=== PATIENT | male | born 1985 | race American Indian/Alaskan Native ===

== ENCOUNTER 2018-08-20 17:07 | Emergency (ER) | payer MEDICAID, OTHER ==
[2018-08-20] MEDS ORDERED: Acetaminophen/HYDROcodone 325-10 MG Tab PO ONE (17:17)
[2018-08-20 17:20] VITALS: BP 131/97
--- NOTE | 2018-08-20 17:58 | EDM.PDOC ---
Scribed by Adriana Barakat 08/20/18 1862 for Gemma Barry MD ED HPI GENERAL MEDICAL PROBLEM - General Chief Complaint: Lower Extremity Injury/Pain Stated Complaint: LEFT LEG,BUCKED OFF HORSE Time Seen by Provider: 08/20/18 17:14 Source of Information: Reports: Patient, RN, RN Notes Reviewed History Limitations: Reports: No Limitations - History of Present Illness INITIAL COMMENTS - FREE TEXT/NARRATIVE: Patient presents to ER with complaint that a horse bucked off and he injured his left knee. Denies any other injury. Rates his pain 8/10, better immobilized and worse with movement. Onset: Today Duration: Getting Worse Location: Reports: Lower Extremity, Left Quality: Reports: Ache Severity: Severe Improves with: Reports: None Worsens with: Reports: None Associated Symptoms: Reports: No Other Symptoms Left Leg Pain Score (Numeric/FACES): 8 - Related Data Allergies Allergy/AdvReac Type Severity Reaction Status Date / Time No Known Allergies Allergy Verified 08/20/18 17:13 Home Meds: Home Meds . [No Known Home Meds] 04/11/14 [History] Past Medical History - Past Health History Medical/Surgical History: Denies Medical/Surgical History Review of Systems - Review of Systems Review Of Systems: ROS reveals no pertinent complaints other than HPI. ED EXAM, GENERAL - Physical Exam Exam: See Below Exam Limited By: No Limitations General Appearance: Alert, WD/WN, No Apparent Distress Nose: Normal Inspection Throat/Mouth: Normal Inspection, Normal Voice Head: Atraumatic, Normocephalic Neck: Normal Inspection, Supple, Non-Tender, Full Range of Motion Respiratory/Chest: No Respiratory Distress Cardiovascular: Normal Peripheral Pulses Back Exam: Normal Inspection, Full Range of Motion, NT Extremities: Limited Range of Motion (Left knee with mild anterior bruising, no visible swelling, effusion, or deformity, the skin is intact.). No: Joint Swelling, Fabiana's Sign, Increased Warmth, Redness Neurological: Alert, Oriented, No Motor/Sensory Deficits Course - Vital Signs Last Recorded V/S: Last Vital Signs Temp 36.8 C 08/20/18 17:14 Pulse 106 H 08/20/18 17:14 Resp 16 08/20/18 17:14 BP 131/97 H 08/20/18 17:14 Pulse Ox 98 08/20/18 17:14 - Orders/Labs/Meds Orders: Active Orders 24 hr Category Date Time Status Darryl Bandage [RC] ONETIME Care 08/20/18 17:53 Ordered Knee 3V Lt [CR] Urgent Exams 08/20/18 17:18 Taken DME for Discharge [COMM] Routine Oth 08/20/18 17:52 Ordered Ice Bag [Ice Therapy] [OM.PC] Routine Oth 08/20/18 17:19 Ordered Meds: Medications Discontinued Medications Generic Name Dose Route Start Last Admin Trade Name Anthony PRN Reason Stop Dose Admin Hydrocodone Bitart/Acetaminophen 1 tab 08/20/18 17:17 08/20/18 17:49 [place] 325-10 Mg PO 08/20/18 17:18 1 tab ONETIME ONE Administration - Radiology Interpretation Free Text/Narrative:: [facility] Final Radiology Report Call: [phone] assistance Online chat: [email or web address] Name: VICKI VO Age: 32Years M Date: 08/20/2018 SSN: -- : [id number] Study: XR KNEE 3 VIEWS LEFT Requesting Physician: GEMMA BARRY Images: 3 Addl Studies: Provided Clinical History: Contrast: Contrast Medium: Contrast Amount: Contrast Method: CONFIDENTIALITY STATEMENT This report is intended only for use by the referring physician, and only in accordance with law. If you received this in error, call [phone]. Page 1 of 1 EXAM: XR Left Knee, 3 Views EXAM DATE/TIME: 08/20/2018 5:18 PM CLINICAL HISTORY: 32 years old, male; Pain; Knee; Left; Patient HX: Bucked off horse TECHNIQUE: Imaging protocol: XR Left knee. Views: 3 views. COMPARISON: MR Knee wo Cont Lt 04/27/2015 10:43 AM FINDINGS: Bones/joints: Normal. Soft tissues: Normal. IMPRESSION: No acute findings. Thank you for allowing us to participate in the care of your patient. Dictated and Authenticated by: Alonzo Sánchez MD 08/20/2018 5:41 PM Central Time ([place] & [place]) Departure - Departure Time of Disposition: 17:56 Disposition: Home, Self-Care 01 Condition: Good Clinical Impression: Contusion of left knee, initial encounter Left knee sprain Qualifiers: Encounter type: initial encounter Involved ligament of knee: unspecified ligament Qualified Code(s): S83.92XA - Sprain of unspecified site of left knee, initial encounter - Discharge Information *PRESCRIPTION DRUG MONITORING PROGRAM REVIEWED*: No *COPY OF PRESCRIPTION DRUG MONITORING REPORT IN PATIENT MIRLANDE: No Instructions: Knee Sprain, Adult, Contusion, [id number] Forms: ED Department Discharge Additional Instructions: Rest, ice packs, and elevate left knee to reduce pain and swelling. Use crutches as needed for 5 to 7 days. Rx: Naprosyn 500mg Follow up in clinic in 7 days if not improving as tolerated. - My Orders Last 24 Hours: My Active Orders 08/20/18 17:18 Knee 3V Lt [CR] Urgent 08/20/18 17:19 Ice Bag [Ice Therapy] [OM.PC] Routine 08/20/18 17:52 DME for Discharge [COMM] Routine 08/20/18 17:53 Darryl Bandage [RC] ONETIME - Assessment/Plan Last 24 Hours: My Active Orders 08/20/18 17:18 Knee 3V Lt [CR] Urgent 08/20/18 17:19 Ice Bag [Ice Therapy] [OM.PC] Routine 08/20/18 17:52 DME for Discharge [COMM] Routine 08/20/18 17:53 Darryl Bandage [RC] ONETIME I have read and agree with the documentation that has been completed regarding this visit. By signing this record, I attest that the documentation was completed in my physical presence and is an accurate record of the encounter.
== END 2018-08-20 18:01 | disposition home or self-care (01) ==
LOC: DL.ED 17:07
DX: S83.92XA Sprain of unspecified site of left knee, initial encounter (principal); V80.010A Animal-rider injured by fall from or being thrown from horse in noncollision accident, initial encounter
CPT/HCPCS: 73562-LT; 99283-25; A9270-GY

== ENCOUNTER 2019-12-24 00:26 | Emergency (ER) | payer MEDICAID, OTHER ==
[2019-12-24 00:41] VITALS: BP 134/95; PULSE 93
--- NOTE | 2019-12-24 00:41 | EDM.PDOC ---
ED HPI GENERAL MEDICAL PROBLEM - General Chief Complaint: Drug or Alcohol Abuse Stated Complaint: PT SAYSBOTTOM OF SYRINGE STUCK IN ARM, DRUG ATTICT Time Seen by Provider: 12/24/19 00:40 Source of Information: Reports: Patient, RN, RN Notes Reviewed History Limitations: Reports: Intoxication - History of Present Illness INITIAL COMMENTS - FREE TEXT/NARRATIVE: Patient presents to ER with complaint of broken needle in the left antecubital. Patient states he was shooting up meth this evening when the needle broke. Patient is unsure what time this happened. Patient admits to being a frequent IV drug user. Patient denies any pain at this time. Is trying to hold pressure to the upper arm, states he is very concerned that the needle will move up the arm if he does not tourniquet the arm. Patient encouraged to untie his sweatshirt from his upper arm, loosen tourniquet, and stop holding pressure. Patient is very anxious. Onset: Today, Sudden - Related Data Allergies Allergy/AdvReac Type Severity Reaction Status Date / Time No Known Allergies Allergy Verified 12/24/19 00:47 Home Meds: Home Meds . [No Known Home Meds] 04/11/14 [History] Past Medical History - Past Health History Medical/Surgical History: Denies Medical/Surgical History HEENT History: Reports: None Cardiovascular History: Reports: None Respiratory History: Reports: None Gastrointestinal History: Reports: None Genitourinary History: Reports: None Musculoskeletal History: Reports: None Neurological History: Reports: None Psychiatric History: Reports: None Endocrine/Metabolic History: Reports: None Hematologic History: Reports: None Immunologic History: Reports: None Oncologic (Cancer) History: Reports: None Dermatologic History: Reports: None - Infectious Disease History Infectious Disease History: Reports: None - Past Surgical History Head Surgeries/Procedures: Reports: None Social & Family History - Family History Family Medical History: Noncontributory - Caffeine Use Caffeine Use: Reports: Coffee ED ROS GENERAL - Review of Systems Review Of Systems: Comprehensive ROS is negative, except as noted in HPI. ED EXAM, SKIN/RASH Exam: See Below Exam Limited By: Intoxication General Appearance: Alert, WD/WN, Anxious Eye Exam: Bilateral Eye: EOMI, Normal Inspection Ears: Normal External Exam, Hearing Grossly Normal Nose: Normal Inspection Throat/Mouth: Normal Inspection, Normal Voice, No Airway Compromise Head: Atraumatic, Normocephalic Neck: Normal Inspection, Supple, Non-Tender, Full Range of Motion Respiratory/Chest: No Respiratory Distress, Lungs Clear, Normal Breath Sounds, No Accessory Muscle Use, Chest Non-Tender Cardiovascular: Normal Peripheral Pulses, Regular Rate, Rhythm, No Edema, No Gallop, No JVD, No Murmur, No Rub Peripheral Pulses: 1+: Brachial (L), Brachial (R), 2+: Radial (L), Radial (R) GI/Abdominal: Normal Bowel Sounds, Soft, Non-Tender (Male) Exam: Deferred Rectal (Males) Exam: Deferred Back Exam: Normal Inspection, Full Range of Motion, NT Extremities: Other (track summers to the LAC, mild petechiae to the left upper arm from patient holding pressure and pt placing a tourniquet around upper arm) Neurological: Alert, CN II-XII Intact, Normal Cognition, Normal Gait, Normal Reflexes, No Motor/Sensory Deficits, Memory Loss Recent Events Psychiatric: Anxious Skin: Warm, Dry, Petechiae (Left upper arm), Wound/Incision (track summers to LAC) Location, Skin: Upper Extremity, Left Lymphatic: No Adenopathy Course - Vital Signs Last Recorded V/S: Last Vital Signs Temp 98.8 F 12/24/19 00:40 Pulse 93 12/24/19 00:40 Resp 16 12/24/19 00:40 BP 134/95 H 12/24/19 00:40 Pulse Ox 100 12/24/19 00:40 - Orders/Labs/Meds Labs: Laboratory Tests 12/24/19 12/24/19 Range/Units 01:03 01:03 WBC 8.1 (5.0-10.0) 10^3/uL RBC 5.53 (4.6-6.2) 10^6/uL Hgb 16.8 D (14.0-18.0) g/dL Hct 48.7 (40.0-54.0) % MCV 88.1 (80-100) fL MCH 30.4 (27.0-34.0) pg MCHC 34.5 (33.0-35.0) g/dL Plt Count 212 (150-450) 10^3/uL Neut % (Auto) 83.0 H (42.2-75.2) % Lymph % (Auto) 11.1 L (20.5-50.1) % [place] % (Auto) 5.7 (2-8) % Eos % (Auto) 0.1 L (1.0-3.0) % Baso % (Auto) 0.1 (0.0-1.0) % Sodium 141 (136-145) mmol/L Potassium 3.8 (3.5-5.1) mmol/L Chloride 105 (98-107) mmol/L Carbon Dioxide 23 (21-32) mmol/L Anion Gap 16.8 H (7-13) mEq/L BUN 10 (7-18) mg/dL Creatinine 0.88 (0.70-1.30) mg/dL Est Cr Clr Drug Dosing 123.28 mL/min Estimated GFR (MDRD) > 60 BUN/Creatinine Ratio 11.4 (No establ ref range) Glucose 124 H (74-99) mg/dL Calcium 8.6 (8.5-10.1) mg/dL Total Bilirubin 0.2 (0.2-1.0) mg/dL AST 29 (15-37) U/L ALT 56 (16-63) U/L Alkaline Phosphatase 105 (46-116) U/L Total Protein 9.2 H (6.4-8.2) g/dL Albumin 4.1 (3.4-5.0) g/dL Globulin 5.1 Albumin/Globulin Ratio 0.8 Ethyl Alcohol 98 (0) mg/dL - Re-Assessments/Exams Free Text/Narrative Re-Assessment/Exam: 12/24/19 01:11 00:55 - Called [facility] for transfer, on diversion at this time. 00:58 - [facility] called for transfer, on diversion at this time. 00:59 - [facility] called for transfer. ER physician told [facility] that they would not be able to get the needle end out, and would suggest discharging and having the patient follow up with a surgical referral tomorrow. Departure - Departure Time of Disposition: 01:55 Disposition: Home, Self-Care 01 Condition: Fair Clinical Impression: Alcohol abuse, Drug abuse, Foreign body (FB) in soft tissue - Discharge Information *PRESCRIPTION DRUG MONITORING PROGRAM REVIEWED*: No *COPY OF PRESCRIPTION DRUG MONITORING REPORT IN PATIENT MIRLANDE: No Instructions: Skin Foreign Body, Substance Use Disorder Forms: ED Department Discharge Additional Instructions: Tomorrow call general surgery at [facility] at [phone] Make an appointment for removal of the needle All Xrays have been pushed to [facility] in PACs, so they are able to see them No strenuous activity with the left arm until seen by General surgery If any redness, swelling, increased pain, warmth, drainage, or fever, return to the ER immediately Sepsis Event Note (ED) - Focused Exam Vital Signs: Vital Signs Temp Pulse Resp BP Pulse Ox 12/24/19 00:40 98.8 F 93 16 134/95 H 100
--- NOTE | 2019-12-24 01:16 | CR ---
PROCEDURE INFORMATION: Exam: XR Left Forearm Exam date and time: 12/24/2019 12:36 AM Age: 34 years old Clinical indication: Pain; Lower or forearm and elbow; Left; Additional info: Part of needle stuck in arm TECHNIQUE: Imaging protocol: XR Left forearm. Views: 2 views. COMPARISON: No relevant prior studies available. FINDINGS: Bones/joints: Normal. Soft tissues: There is a small sliver like metallic foreign object seen over the lateral aspect of the antecubital fossa consistent with a needle fragment. This is approximately 11 mm in length. No soft tissue gas. IMPRESSION: 1. Metal fragment in the lateral antecubital fossa soft tissues consistent with a needle fragment. 2. No soft tissue gas. 3. Normal bones.
[2019-12-24 01:27] LABS: ANION GAP 16.8 mEq/L (7-13); CHLORIDE,CL 105 mmol/L (98-107); SODIUM,NA 141 mmol/L (136-145)
== END 2019-12-24 01:50 | disposition home or self-care (01) ==
LOC: DL.ED 00:26
DX: S50.352A Superficial foreign body of left elbow, initial encounter (principal); F15.10 Other stimulant abuse, uncomplicated; F10.10 Alcohol abuse, uncomplicated; X58.XXXA Exposure to other specified factors, initial encounter
CPT/HCPCS: 36415; 73090-LT; 80053; 80307; 85025; 99283-25

== ENCOUNTER 2021-06-14 20:01 | Emergency (ER) | payer MEDICAID, OTHER ==
[~2021-06-14 20:01] MED LIST: Sodium Chloride 0.9% 1,000 ML IV ONE
[2021-06-14] MEDS ORDERED: fentaNYL 100 MCG/2 ML SDV IVPUSH ONE (20:28)
[2021-06-14] MEDS ORDERED: Ondansetron 4 MG/2 ML SDV IVPUSH ONE (20:28)
[2021-06-14] MEDS ORDERED: Ondansetron 4 MG/2 ML SDV ONE (20:29)
[2021-06-14 20:33] LABS: PTT,PARTIAL THROMBOPLSTIN TIME 21.6 SEC (22.0-34.0)
[2021-06-14 20:41] LABS: ANION GAP 19.4 mEq/L (7-13); CHLORIDE,CL 108 mmol/L (98-107); SODIUM,NA 146 mmol/L (136-145)
[2021-06-14] MEDS ORDERED: Ondansetron 4 MG/2 ML SDV IV ONE (20:52)
[2021-06-14] MEDS ORDERED: fentaNYL 100 MCG/2 ML SDV IV ONE (20:52)
== END 2021-06-14 21:40 | disposition home or self-care (01) ==
LOC: DL.ED 20:01
DX: S02.2XXA Fracture of nasal bones, initial encounter for closed fracture (principal); S40.022A Contusion of left upper arm, initial encounter; Y04.0XXA Assault by unarmed brawl or fight, initial encounter
CPT/HCPCS: 36415; 70450; 70486; 72125; 80053; 80307; 85025; 85610; 85730; 99284; 99284-25; J2405; J3010; J7030

== ENCOUNTER 2021-07-03 16:51 | Emergency (ER) | payer MEDICAID ==
[2021-07-03 18:42] VITALS: BP 157/92; PULSE 100
== END 2021-07-03 18:49 | disposition left against medical advice (07) ==
LOC: DL.ED 16:51
DX: M79.605 Pain in left leg (principal); Z53.21 Procedure and treatment not carried out due to patient leaving prior to being seen by health care provider

== ENCOUNTER 2022-03-27 13:29 | Emergency (ER) | payer MEDICAID | END 2022-03-27 14:15 | disposition left against medical advice (07) | LOC: DL.ED 13:29 | DX: Z53.21 Procedure and treatment not carried out due to patient leaving prior to being seen by health care provider (principal) ==

== ENCOUNTER 2022-03-28 14:32 | Emergency (ER) | payer MEDICAID ==
[2022-03-28 15:48] LABS: ANION GAP 16.3 mEq/L (7-13); CHLORIDE,CL 101 mmol/L (98-107); ESTIMATED GFR 99 mL/min (>=60); SODIUM,NA 140 mmol/L (136-145)
[2022-03-28 15:49] LABS: ACETAMINOPHEN 0 ug/mL (10-30 (Therapeutic))
[2022-03-28 15:50] VITALS: BP 145/102; PULSE 142
[2022-03-28 15:52] LABS: METHAMPHETAMINES,URINE POSITIVE (NEGATIVE)
[2022-03-28 15:53] LABS: BARBITURATES,URINE NEGATIVE (NEGATIVE); BENZODIAZEPINE,URINE NEGATIVE (NEGATIVE); MDMA (ECSTASY), URINE NEGATIVE (NEGATIVE); OPIATES,URINE NEGATIVE (NEGATIVE); OXYCODONE,URINE NEGATIVE (NEGATIVE); PHENCYCLIDINE,URINE NEGATIVE (NEGATIVE); TCA,URINE NEGATIVE (NEGATIVE)
[2022-03-28 16:04] LABS: CORONAVIRUS COVID-19 NAA NEGATIVE (NEGATIVE)
[2022-03-28] MEDS ORDERED: MVI, Adult with Vitamin K 10 ML, Folic Acid 1 MG, Thiamine 100 MG in Lactated Ringers 1... IV ONE ×4 (16:07)
[2022-03-29 08:55] LABS: METHADONE,URINE NEGATIVE (NEGATIVE)
[2022-03-29 08:56] LABS: AMPHETAMINES,URINE POSITIVE (NEGATIVE)
== END 2022-03-28 18:23 | disposition home or self-care (01) ==
LOC: DL.ED 14:32
DX: R07.89 Other chest pain (principal); F10.10 Alcohol abuse, uncomplicated; F19.90 Other psychoactive substance use, unspecified, uncomplicated; Z20.822 Contact with and (suspected) exposure to COVID-19
CPT/HCPCS: 0240U; 36415; 80053; 80143; 80179; 80305; 80307; 81003; 82140; 82150; 83605; 83735; 84484; 85025; 93005; 96365; 99285; J3411; J7120; J3490

== ENCOUNTER 2022-03-28 22:30 | Emergency (ER) | payer MEDICAID ==
[~2022-03-28 22:30] MED LIST changes: -Sodium Chloride 0.9% 1,000 ML IV ONE; +Sodium Chloride 0.9% 10 ML Syringe FLUSH PRN
[2022-03-28] MEDS ORDERED: Metoprolol Tartrate 5 MG/5 ML SDV IVPUSH ONE (23:05)
[2022-03-28 23:29] VITALS: BP 160/99; PULSE 118
== END 2022-03-28 23:41 | disposition home or self-care (01) ==
LOC: DL.ED 22:30
DX: F19.10 Other psychoactive substance abuse, uncomplicated (principal)
CPT/HCPCS: 36415; 71046; 83605; 84484; 86140; 93005; 96374; 99285; J3490

== ENCOUNTER 2022-05-11 09:55 | Emergency (ER) | payer MEDICAID ==
[2022-05-11 10:16] VITALS: BP 176/114; PULSE 74
[2022-05-11 10:41] LABS: ANION GAP 12.8 mEq/L (7-13)
[2022-05-11 10:56] LABS: CORONAVIRUS COVID-19 NAA NEGATIVE (NEGATIVE)
== END 2022-05-11 11:00 | disposition home or self-care (01) ==
LOC: DL.ED 09:55
DX: R07.89 Other chest pain (principal); I10 Essential (primary) hypertension; Z20.822 Contact with and (suspected) exposure to COVID-19
CPT/HCPCS: 0240U; 36415; 71046; 80053; 80143; 81001; 83690; 83880; 84484; 85025; 93005; 93010; 99284; 99285

== ENCOUNTER 2022-07-19 08:17 | Emergency (ER) | payer MEDICAID ==
[2022-07-19] MEDS ORDERED: MVI, Adult with Vitamin K 10 ML, Thiamine 100 MG, Folic Acid 1 MG in Lactated Ringers 1... IV ONE ×4 (08:36)
[2022-07-19 08:44] LABS: AMPHETAMINES,URINE NEGATIVE (NEGATIVE); BARBITURATES,URINE NEGATIVE (NEGATIVE); BENZODIAZEPINE,URINE NEGATIVE (NEGATIVE); MDMA (ECSTASY), URINE NEGATIVE (NEGATIVE); METHADONE,URINE NEGATIVE (NEGATIVE); OPIATES,URINE NEGATIVE (NEGATIVE); OXYCODONE,URINE NEGATIVE (NEGATIVE); PHENCYCLIDINE,URINE NEGATIVE (NEGATIVE); TCA,URINE NEGATIVE (NEGATIVE)
[2022-07-19 08:46] LABS: METHAMPHETAMINES,URINE NEGATIVE (NEGATIVE)
[2022-07-19 08:47] VITALS: BP 145/96; PULSE 106
[2022-07-19 08:55] LABS: ANION GAP 15.5 mEq/L (7-13)
== END 2022-07-19 09:56 | disposition home or self-care (01) ==
LOC: DL.ED 08:17
DX: R07.89 Other chest pain (principal); F41.9 Anxiety disorder, unspecified; F10.982 Alcohol use, unspecified with alcohol-induced sleep disorder; I10 Essential (primary) hypertension; F17.210 Nicotine dependence, cigarettes, uncomplicated; Z79.899 Other long term (current) drug therapy; Z86.16 Personal history of COVID-19; Y90.7 Blood alcohol level of 200-239 mg/100 ml
CPT/HCPCS: 36415; 71045; 80053; 80305-QW; 80307; 81003; 82150; 83690; 84484; 85025; 93005; 93010; 96365; 99284; 99285-25; J3411; J3490; J7120

== ENCOUNTER 2022-07-21 18:10 | Emergency (ER) | payer MEDICAID | END 2022-07-21 18:40 | disposition left against medical advice (07) | LOC: DL.ED 18:10 | DX: Z53.21 Procedure and treatment not carried out due to patient leaving prior to being seen by health care provider (principal) ==

== ENCOUNTER 2022-07-21 18:45 | Emergency (ER) | payer MEDICAID | END 2022-07-21 19:17 | disposition left against medical advice (07) | LOC: DL.ED 18:45 | DX: Z53.21 Procedure and treatment not carried out due to patient leaving prior to being seen by health care provider (principal) ==

== ENCOUNTER 2022-07-21 23:40 | Emergency (ER) | payer MEDICAID ==
[2022-07-21 23:41] VITALS: BP 151/91; PULSE 114
[2022-07-21 23:55] LABS: AMPHETAMINES,URINE NEGATIVE (NEGATIVE); BARBITURATES,URINE NEGATIVE (NEGATIVE); BENZODIAZEPINE,URINE NEGATIVE (NEGATIVE); MDMA (ECSTASY), URINE NEGATIVE (NEGATIVE); METHADONE,URINE NEGATIVE (NEGATIVE); METHAMPHETAMINES,URINE NEGATIVE (NEGATIVE); OPIATES,URINE NEGATIVE (NEGATIVE); OXYCODONE,URINE NEGATIVE (NEGATIVE); PHENCYCLIDINE,URINE NEGATIVE (NEGATIVE); TCA,URINE NEGATIVE (NEGATIVE)
[2022-07-22 00:08] LABS: ANION GAP 15.7 mEq/L (7-13); CHLORIDE,CL 106 mmol/L (98-107); SODIUM,NA 142 mmol/L (136-145)
[2022-07-22 00:14] LABS: ESTIMATED GFR 113 mL/min (>=60)
== END 2022-07-22 01:04 | disposition home or self-care (01) ==
LOC: DL.ED 23:40
DX: R10.31 Right lower quadrant pain (principal); R10.32 Left lower quadrant pain; I10 Essential (primary) hypertension; Z79.899 Other long term (current) drug therapy; Z86.16 Personal history of COVID-19
CPT/HCPCS: 36415; 80053; 80305-QW; 80307; 81003; 82150; 83605; 83690; 85025; 86140; 99283; 99284

== ENCOUNTER 2022-08-16 00:53 | Emergency (ER) | payer MEDICAID ==
[~2022-08-16 00:53] MED LIST changes: +Sodium Chloride 0.9% 1,000 ML IV ONE
[2022-08-16 01:02] VITALS: BP 142/94; PULSE 129
[2022-08-16 01:21] LABS: PTT,PARTIAL THROMBOPLSTIN TIME 24.9 SEC (22.0-34.0)
[2022-08-16 01:25] LABS: ANION GAP 15.3 mEq/L (7-13); CHLORIDE,CL 105 mmol/L (98-107); SODIUM,NA 143 mmol/L (136-145)
[2022-08-16 01:27] LABS: ESTIMATED GFR 116 mL/min (>=60)
[2022-08-16 01:30] LABS: AMPHETAMINES,URINE POSITIVE (NEGATIVE); BARBITURATES,URINE NEGATIVE (NEGATIVE); BENZODIAZEPINE,URINE NEGATIVE (NEGATIVE); MDMA (ECSTASY), URINE NEGATIVE (NEGATIVE); METHADONE,URINE NEGATIVE (NEGATIVE); METHAMPHETAMINES,URINE POSITIVE (NEGATIVE); OPIATES,URINE NEGATIVE (NEGATIVE); OXYCODONE,URINE NEGATIVE (NEGATIVE); PHENCYCLIDINE,URINE NEGATIVE (NEGATIVE); TCA,URINE NEGATIVE (NEGATIVE)
[2022-08-16] MEDS ORDERED: Potassium Chloride 20 MEQ in Premix Bag 1 BAG IV ONE (01:34)
[2022-08-16] MEDS ORDERED: Sodium Chloride 0.9% 1,000 ML IV ONE (03:23)
[2022-08-16] MEDS ORDERED: hydrOXYzine HCl 25 MG Tab PO ONE (05:02)
== END 2022-08-16 06:25 | disposition home or self-care (01) ==
LOC: DL.ED 00:53
DX: R07.89 Other chest pain (principal); R06.02 Shortness of breath; F10.129 Alcohol abuse with intoxication, unspecified; F15.10 Other stimulant abuse, uncomplicated; Y90.7 Blood alcohol level of 200-239 mg/100 ml; F41.9 Anxiety disorder, unspecified; I10 Essential (primary) hypertension; Z79.899 Other long term (current) drug therapy
CPT/HCPCS: 36415; 71045; 80053; 80305; 80307; 81003; 82150; 83605; 83690; 83735; 84145; 84484; 85025; 85610; 85730; 86140; 93005; 93010; 96361; 96365; 96366; 99284; 99285; A9270; J3480; J7030; J3490

== ENCOUNTER 2022-08-29 05:44 | Emergency (ER) | payer MEDICAID ==
[2022-08-29] MEDS ORDERED: Sodium Chloride 0.9% 10 ML Syringe FLUSH PRN (05:48)
[2022-08-29 05:59] VITALS: BP 156/116; PULSE 129
[2022-08-29 06:09] LABS: BASOPHILS PERCENT AUTO 0.8 % (0.0-1.0); HEMATOCRIT 41.5 % (40.0-54.0); HEMOGLOBIN 14.1 g/dL (14.0-18.0); LYMPHOCYTES PERCENT AUTO 32.2 % (20.5-50.1); MEAN CORPUSCULAR HEMOGLOBIN 31.3 pg (27.0-34.0); MEAN CORPUSCULAR VOLUME 92.2 fL (80-100); MONOCYTES PERCENT AUTO 8.6 % (2-8); NEUTROPHILS PERCENT AUTO 58.4 % (42.2-75.2); PLATELET COUNT,PLT 161 10^3/uL (150-450); WHITE BLOOD CELL COUNT,WBC 4.8 10^3/uL (5.0-10.0)
[2022-08-29 06:11] LABS: APPEARANCE,URINE CLEAR (CLEAR); BILIRUBIN,URINE NEGATIVE (NEGATIVE); COLOR,URINE YELLOW (YELLOW); GLUCOSE,URINE NEGATIVE (NEGATIVE); KETONES,URINE NEGATIVE (NEGATIVE); LEUKOCYTE ESTERASE,URINE NEGATIVE (NEGATIVE); NITRITE,URINE NEGATIVE (NEGATIVE); OCCULT BLOOD,URINE TRACE-INTACT (NEGATIVE); PROTEIN,URINE NEGATIVE (NEGATIVE); UROBILINOGEN,URINE 0.2 mg/dL (0.2-1.0)
[2022-08-29 06:19] LABS: AMPHETAMINES,URINE NEGATIVE (NEGATIVE); BARBITURATES,URINE NEGATIVE (NEGATIVE); BENZODIAZEPINE,URINE NEGATIVE (NEGATIVE); MDMA (ECSTASY), URINE NEGATIVE (NEGATIVE); METHADONE,URINE NEGATIVE (NEGATIVE); METHAMPHETAMINES,URINE POSITIVE (NEGATIVE); OPIATES,URINE NEGATIVE (NEGATIVE); OXYCODONE,URINE NEGATIVE (NEGATIVE); PHENCYCLIDINE,URINE NEGATIVE (NEGATIVE); TCA,URINE NEGATIVE (NEGATIVE)
[2022-08-29 06:22] LABS: BACTERIA,URINE RARE /HPF (0-FEW/HPF); EPITHELIAL CELLS,URINE RARE /HPF (NOT SEEN); RBC,URINE 0-5 /HPF (0-5); WBC,URINE NOT SEEN /HPF (0-5/HPF)
[2022-08-29 06:26] LABS: INR 0.9 (0.9-1.2); PROTHROMBIN TIME 9.7 SEC (9.0-12.0); PTT,PARTIAL THROMBOPLSTIN TIME 24.7 SEC (22.0-34.0)
[2022-08-29 06:35] LABS: A/G RATIO 0.9; ALANINE AMINOTRANSFERASE,ALT 165 U/L (16-63); ALKALINE PHOSPHATASE 92 U/L (46-116); ASPARTATE AMNIOTRANSFERASE,AST 125 U/L (15-37); BILIRUBIN TOTAL 0.4 mg/dL (0.2-1.0); BLOOD UREA NITROGEN,BUN 5 mg/dL (7-18); CALCIUM 8.1 mg/dL (8.5-10.1); CARBON DIOXIDE,CO2 24 mmol/L (21-32); CHLORIDE,CL 107 mmol/L (98-107); CREATININE 0.71 mg/dL (0.70-1.30); EST CRCL DRUG DOSING (CG) 149.94 mL/min; ETHANOL BLOOD MEDICAL 280 mg/dL (0); GLUCOSE RANDOM 129 mg/dL (70-99); MAGNESIUM 1.7 mg/dL (1.8-2.4); PROTEIN TOTAL,TP 8.6 g/dL (6.4-8.2); SODIUM,NA 145 mmol/L (136-145)
[2022-08-29 06:37] LABS: ESTIMATED GFR 123 mL/min (>=60)
[2022-08-29 06:38] LABS: C-REACTIVE PROTEIN < 0.2 mg/dL (0.0-0.9); LACTIC ACID 2.2 mmol/L (0.4-2.0)
[2022-08-29] MEDS ORDERED: hydrOXYzine HCl 25 MG Tab PO ONE (07:07)
[2022-08-29] MEDS ORDERED: diphenhydrAMINE 50 MG/ML SDV IVPUSH ONE (07:14)
[2022-08-29] MEDS ORDERED: Potassium Chloride 10 MEQ Tab.ER PO ONE (07:16)
[2022-08-29] MEDS ORDERED: diphenhydrAMINE 50 MG/ML SDV ONE (07:19)
[2022-08-29] MEDS ORDERED: Potassium Chloride 10 MEQ Tab.ER ONE (07:20)
== END 2022-08-29 07:38 | disposition home or self-care (01) ==
LOC: DL.ED 05:44
DX: F15.10 Other stimulant abuse, uncomplicated (principal); F10.10 Alcohol abuse, uncomplicated; I10 Essential (primary) hypertension; E11.9 Type 2 diabetes mellitus without complications; R00.0 Tachycardia, unspecified; Z86.16 Personal history of COVID-19; Z79.899 Other long term (current) drug therapy; Y90.8 Blood alcohol level of 240 mg/100 ml or more
CPT/HCPCS: 36415; 71045; 80053; 80305-QW; 80307; 81001; 83605; 83735; 84484; 85025; 85610; 85730; 86140; 93005; 93010; 96374; 99284; 99285-25; J3490

== ENCOUNTER 2022-08-29 16:50 | Emergency (ER) | payer MEDICAID ==
[2022-08-29] MEDS ORDERED: Sodium Chloride 0.9% 10 ML Syringe FLUSH PRN (17:40)
[2022-08-29 17:56] VITALS: BP 147/93; PULSE 118
[2022-08-29 18:02] LABS: BASOPHILS PERCENT AUTO 0.6 % (0.0-1.0); EOSINOPHILS PERCENT AUTO 0.1 % (1.0-3.0); HEMATOCRIT 42.2 % (40.0-54.0); HEMOGLOBIN 14.7 g/dL (14.0-18.0); LYMPHOCYTES PERCENT AUTO 8.1 % (20.5-50.1); MEAN CORPUSCULAR HEMOGLOBIN 31.3 pg (27.0-34.0); MEAN CORPUSCULAR HGB CONC 34.8 g/dL (33.0-35.0); NEUTROPHILS PERCENT AUTO 84.2 % (42.2-75.2); PLATELET COUNT,PLT 163 10^3/uL (150-450); RED BLOOD CELL COUNT 4.69 10^6/uL (4.6-6.2); WHITE BLOOD CELL COUNT,WBC 10.4 10^3/uL (5.0-10.0)
[2022-08-29 18:31] LABS: ALANINE AMINOTRANSFERASE,ALT 176 U/L (16-63); ALBUMIN 4.3 g/dL (3.4-5.0); ALKALINE PHOSPHATASE 100 U/L (46-116); ASPARTATE AMNIOTRANSFERASE,AST 136 U/L (15-37); BLOOD UREA NITROGEN,BUN 4 mg/dL (7-18); BUN/CREATININE RATIO 4.9 (No establ ref range); CALCIUM 9.3 mg/dL (8.5-10.1); CARBON DIOXIDE,CO2 26 mmol/L (21-32); CHLORIDE,CL 99 mmol/L (98-107); CREATININE 0.82 mg/dL (0.70-1.30); GLUCOSE RANDOM 124 mg/dL (70-99); PROTEIN TOTAL,TP 8.6 g/dL (6.4-8.2); SODIUM,NA 139 mmol/L (136-145)
[2022-08-29 18:36] LABS: C-REACTIVE PROTEIN < 0.2 mg/dL (0.0-0.9); ESTIMATED GFR 117 mL/min (>=60); LACTIC ACID 2.4 mmol/L (0.4-2.0)
[2022-08-29 18:38] LABS: AMYLASE 78 U/L (25-115); LIPASE 152 U/L (73-393)
[2022-08-29] MEDS ORDERED: Potassium Chloride 10 MEQ Tab.ER PO ONE (18:43)
[2022-08-29] MEDS ORDERED: Sodium Chloride 0.9% 1,000 ML IV ONE (18:43)
[2022-08-29] MEDS ORDERED: Iopamidol 755 Mg/ML 100 ML Bottle IVPUSH ONE (18:53)
[2022-08-29 20:00] LABS: APPEARANCE,URINE CLEAR (CLEAR); BILIRUBIN,URINE SMALL (NEGATIVE); COLOR,URINE YELLOW (YELLOW); GLUCOSE,URINE NEGATIVE (NEGATIVE); KETONES,URINE 40 (NEGATIVE); LEUKOCYTE ESTERASE,URINE NEGATIVE (NEGATIVE); NITRITE,URINE NEGATIVE (NEGATIVE); OCCULT BLOOD,URINE SMALL (NEGATIVE); PROTEIN,URINE 100 (NEGATIVE); UROBILINOGEN,URINE 0.2 mg/dL (0.2-1.0)
[2022-08-29 20:04] LABS: AMPHETAMINES,URINE POSITIVE (NEGATIVE); BARBITURATES,URINE NEGATIVE (NEGATIVE); BENZODIAZEPINE,URINE NEGATIVE (NEGATIVE); MDMA (ECSTASY), URINE NEGATIVE (NEGATIVE); METHADONE,URINE NEGATIVE (NEGATIVE); METHAMPHETAMINES,URINE POSITIVE (NEGATIVE); OPIATES,URINE NEGATIVE (NEGATIVE); OXYCODONE,URINE NEGATIVE (NEGATIVE); PHENCYCLIDINE,URINE NEGATIVE (NEGATIVE); TCA,URINE NEGATIVE (NEGATIVE)
[2022-08-29 20:09] LABS: BACTERIA,URINE FEW /HPF (0-FEW/HPF); EPITHELIAL CELLS,URINE FEW /HPF (NOT SEEN); MUCUS,URINE MODERATE /LPF (NOT SEEN); RBC,URINE 0-5 /HPF (0-5); WBC,URINE 0-5 /HPF (0-5/HPF)
[2022-08-29] MEDS ORDERED: Take Home: Doxycycline 100 MG Cap, 4 Cap Pack PO ONE (21:51)
[2022-08-29] MEDS ORDERED: Albuterol 6.7 GM Inhaler INH ONE (21:53)
== END 2022-08-29 22:08 | disposition home or self-care (01) ==
LOC: DL.ED 16:50
DX: J47.1 Bronchiectasis with (acute) exacerbation (principal); J98.11 Atelectasis; E87.6 Hypokalemia; R74.8 Abnormal levels of other serum enzymes; F15.90 Other stimulant use, unspecified, uncomplicated; I10 Essential (primary) hypertension; E11.9 Type 2 diabetes mellitus without complications; Z79.899 Other long term (current) drug therapy; Z86.16 Personal history of COVID-19
CPT/HCPCS: 36415; 71275; 80053; 80305-QW; 81001; 82150; 83605; 83690; 84484; 85025; 86140; 93005; 93010; 96360; 96361; 99285; 99285-25; A9270-GY; J3490; J7030; Q9967

== ENCOUNTER 2022-09-21 04:11 | Emergency (ER) | payer MEDICAID ==
[2022-09-21 04:34] VITALS: BP 159/105; PULSE 88
[2022-09-21 04:47] LABS: BASOPHILS PERCENT AUTO 0.6 % (0.0-1.0); EOSINOPHILS PERCENT AUTO 1.1 % (1.0-3.0); HEMATOCRIT 44.1 % (40.0-54.0); HEMOGLOBIN 14.8 g/dL (14.0-18.0); LYMPHOCYTES PERCENT AUTO 43.7 % (20.5-50.1); MEAN CORPUSCULAR HEMOGLOBIN 31.3 pg (27.0-34.0); MEAN CORPUSCULAR HGB CONC 33.6 g/dL (33.0-35.0); MEAN CORPUSCULAR VOLUME 93.2 fL (80-100); MONOCYTES PERCENT AUTO 8.1 % (2-8); NEUTROPHILS PERCENT AUTO 46.5 % (42.2-75.2); PLATELET COUNT,PLT 275 10^3/uL (150-450); RED BLOOD CELL COUNT 4.73 10^6/uL (4.6-6.2); WHITE BLOOD CELL COUNT,WBC 6.5 10^3/uL (5.0-10.0)
[2022-09-21 04:57] LABS: APPEARANCE,URINE CLEAR (CLEAR); BILIRUBIN,URINE NEGATIVE (NEGATIVE); COLOR,URINE YELLOW (YELLOW); GLUCOSE,URINE NEGATIVE (NEGATIVE); KETONES,URINE NEGATIVE (NEGATIVE); LEUKOCYTE ESTERASE,URINE NEGATIVE (NEGATIVE); NITRITE,URINE POSITIVE (NEGATIVE); OCCULT BLOOD,URINE TRACE-INTACT (NEGATIVE); PROTEIN,URINE 30 (NEGATIVE); UROBILINOGEN,URINE 0.2 mg/dL (0.2-1.0)
[2022-09-21 04:59] LABS: PROTHROMBIN TIME 10.1 SEC (9.0-12.0); PTT,PARTIAL THROMBOPLSTIN TIME 25.4 SEC (22.0-34.0)
[2022-09-21 05:01] LABS: LACTIC ACID 1.2 mmol/L (0.4-2.0)
[2022-09-21 05:04] LABS: AMORPHOUS SEDIMENT,URINE MODERATE /HPF (NOT SEEN); AMPHETAMINES,URINE NEGATIVE (NEGATIVE); BACTERIA,URINE FEW /HPF (0-FEW/HPF); BARBITURATES,URINE NEGATIVE (NEGATIVE); BENZODIAZEPINE,URINE NEGATIVE (NEGATIVE); EPITHELIAL CELLS,URINE MODERATE /HPF (NOT SEEN); MDMA (ECSTASY), URINE NEGATIVE (NEGATIVE); METHADONE,URINE NEGATIVE (NEGATIVE); METHAMPHETAMINES,URINE NEGATIVE (NEGATIVE); MUCUS,URINE MANY /LPF (NOT SEEN); OPIATES,URINE NEGATIVE (NEGATIVE); OXYCODONE,URINE NEGATIVE (NEGATIVE); PHENCYCLIDINE,URINE NEGATIVE (NEGATIVE); RBC,URINE 0-5 /HPF (0-5); TCA,URINE NEGATIVE (NEGATIVE); WBC,URINE 0-5 /HPF (0-5/HPF)
[2022-09-21 05:12] LABS: A/G RATIO 0.9; ALANINE AMINOTRANSFERASE,ALT 274 U/L (16-63); ALBUMIN 3.7 g/dL (3.4-5.0); ALKALINE PHOSPHATASE 101 U/L (46-116); AMYLASE 55 U/L (25-115); ANION GAP 13.2 mEq/L (7-13); ASPARTATE AMNIOTRANSFERASE,AST 276 U/L (15-37); BILIRUBIN TOTAL 0.5 mg/dL (0.2-1.0); BLOOD UREA NITROGEN,BUN 10 mg/dL (7-18); CALCIUM 7.8 mg/dL (8.5-10.1); CARBON DIOXIDE,CO2 27 mmol/L (21-32); CHLORIDE,CL 106 mmol/L (98-107); CREATININE 0.83 mg/dL (0.70-1.30); GLUCOSE RANDOM 132 mg/dL (70-99); LIPASE 148 U/L (73-393); POTASSIUM,K 4.2 mmol/L (3.5-5.1); PROTEIN TOTAL,TP 7.6 g/dL (6.4-8.2); SODIUM,NA 142 mmol/L (136-145)
[2022-09-21 05:25] LABS: ESTIMATED GFR 117 mL/min (>=60)
[2022-09-21 05:26] LABS: C-REACTIVE PROTEIN < 0.2 mg/dL (0.0-0.9); ETHANOL BLOOD MEDICAL 357 mg/dL (0)
[2022-09-21] MEDS ORDERED: Sodium Chloride 0.9% 1,000 ML IV ONE (05:30)
== END 2022-09-21 06:50 | disposition home or self-care (01) ==
LOC: DL.ED 04:11
DX: R07.89 Other chest pain (principal); F10.129 Alcohol abuse with intoxication, unspecified; N39.0 Urinary tract infection, site not specified; R31.9 Hematuria, unspecified; I10 Essential (primary) hypertension; E11.9 Type 2 diabetes mellitus without complications; Z86.16 Personal history of COVID-19; Z79.899 Other long term (current) drug therapy
CPT/HCPCS: 36415; 71045; 80053; 80305-QW; 80307; 81001; 82150; 83605; 83690; 83735; 84145; 84484; 85025; 85610; 85730; 86140; 87086; 93005; 93010; 99284; 99285; J7030

== ENCOUNTER 2022-09-22 06:52 | Emergency (ER) | payer MEDICAID ==
[2022-09-22] MEDS ORDERED: Thiamine 200 MG/2 ML MDV IM ONE (07:03)
[2022-09-22] MEDS ORDERED: Famotidine 20 MG Tab PO ONE (07:06)
[2022-09-22] MEDS ORDERED: GI Cocktail Oral Solution 30 ML PO ONE (07:07)
[2022-09-22 07:15] VITALS: BP 142/101; PULSE 77
[2022-09-22 07:27] LABS: EOSINOPHILS PERCENT AUTO 0.5 % (1.0-3.0); HEMATOCRIT 42.1 % (40.0-54.0); HEMOGLOBIN 14.3 g/dL (14.0-18.0); LYMPHOCYTES PERCENT AUTO 33.6 % (20.5-50.1); MEAN CORPUSCULAR HEMOGLOBIN 31.2 pg (27.0-34.0); MEAN CORPUSCULAR VOLUME 91.9 fL (80-100); MONOCYTES PERCENT AUTO 8.1 % (2-8); NEUTROPHILS PERCENT AUTO 56.8 % (42.2-75.2); PLATELET COUNT,PLT 237 10^3/uL (150-450); RED BLOOD CELL COUNT 4.58 10^6/uL (4.6-6.2); WHITE BLOOD CELL COUNT,WBC 7.3 10^3/uL (5.0-10.0)
[2022-09-22 07:50] LABS: ALBUMIN 3.7 g/dL (3.4-5.0); ANION GAP 14.7 mEq/L (7-13); BILIRUBIN TOTAL 0.6 mg/dL (0.2-1.0); BUN/CREATININE RATIO 11.5 (No establ ref range); CREATININE 1.04 mg/dL (0.70-1.30); EST CRCL DRUG DOSING (CG) 102.36 mL/min; POTASSIUM,K 3.7 mmol/L (3.5-5.1); PROTEIN TOTAL,TP 7.4 g/dL (6.4-8.2)
== END 2022-09-22 08:17 | disposition home or self-care (01) ==
LOC: DL.ED 06:52
DX: K20.90 Esophagitis, unspecified without bleeding (principal); K70.9 Alcoholic liver disease, unspecified; K29.20 Alcoholic gastritis without bleeding; F10.129 Alcohol abuse with intoxication, unspecified; I10 Essential (primary) hypertension; E11.9 Type 2 diabetes mellitus without complications; Z86.16 Personal history of COVID-19; Y90.8 Blood alcohol level of 240 mg/100 ml or more
CPT/HCPCS: 36415; 80053; 80307; 82150; 84484; 85025; 93005; 93010; 96372; 99284; 99285; A9270-GY; J3411

== ENCOUNTER 2022-09-22 14:22 | Emergency (ER) | payer MEDICAID ==
[2022-09-22 14:47] VITALS: BP 142/91; PULSE 83
== END 2022-09-22 16:27 | disposition left against medical advice (07) ==
LOC: DL.ED 14:22
DX: Z53.21 Procedure and treatment not carried out due to patient leaving prior to being seen by health care provider (principal)

== ENCOUNTER 2022-10-29 07:21 | Emergency (ER) | payer MEDICAID ==
[2022-10-29] MEDS: Ondansetron 4 MG/2 ML SDV IVPUSH ONE (08:00)
[2022-10-29] MEDS: hydrOXYzine HCl 25 MG Tab PO ONE (08:00)
[2022-10-29 08:03] LABS: BASOPHILS PERCENT AUTO 0.5 % (0.0-1.0); HEMATOCRIT 38.2 % (40.0-54.0); HEMOGLOBIN 13.1 g/dL (14.0-18.0); LYMPHOCYTES PERCENT AUTO 14.9 % (20.5-50.1); MEAN CORPUSCULAR HEMOGLOBIN 31.2 pg (27.0-34.0); MEAN CORPUSCULAR HGB CONC 34.3 g/dL (33.0-35.0); MONOCYTES PERCENT AUTO 6.5 % (2-8); NEUTROPHILS PERCENT AUTO 78.1 % (42.2-75.2); PLATELET COUNT,PLT 152 10^3/uL (150-450); WHITE BLOOD CELL COUNT,WBC 10.2 10^3/uL (5.0-10.0)
[2022-10-29 08:25] LABS: ALBUMIN 3.8 g/dL (3.4-5.0); ANION GAP 17.3 mEq/L (7-13); BILIRUBIN TOTAL 0.4 mg/dL (0.2-1.0); BUN/CREATININE RATIO 12.6 (No establ ref range); CALCIUM 7.6 mg/dL (8.5-10.1); CREATININE 0.87 mg/dL (0.70-1.30); EST CRCL DRUG DOSING (CG) 122.37 mL/min; POTASSIUM,K 3.3 mmol/L (3.5-5.1); PROTEIN TOTAL,TP 7.6 g/dL (6.4-8.2)
[2022-10-29 09:29] LABS: APPEARANCE,URINE CLEAR (CLEAR); BILIRUBIN,URINE NEGATIVE (NEGATIVE); COLOR,URINE YELLOW (YELLOW); GLUCOSE,URINE NEGATIVE (NEGATIVE); KETONES,URINE 15 (NEGATIVE); LEUKOCYTE ESTERASE,URINE NEGATIVE (NEGATIVE); NITRITE,URINE NEGATIVE (NEGATIVE); OCCULT BLOOD,URINE TRACE-LYSED (NEGATIVE); PH,URINE 6.5 (5.0-9.0); PROTEIN,URINE NEGATIVE (NEGATIVE); UROBILINOGEN,URINE 0.2 mg/dL (0.2-1.0)
[2022-10-29 09:30] LABS: AMPHETAMINES,URINE NEGATIVE (NEGATIVE); BARBITURATES,URINE NEGATIVE (NEGATIVE); BENZODIAZEPINE,URINE NEGATIVE (NEGATIVE); MDMA (ECSTASY), URINE NEGATIVE (NEGATIVE); METHADONE,URINE NEGATIVE (NEGATIVE); OPIATES,URINE NEGATIVE (NEGATIVE); OXYCODONE,URINE NEGATIVE (NEGATIVE); PHENCYCLIDINE,URINE NEGATIVE (NEGATIVE); TCA,URINE NEGATIVE (NEGATIVE)
[2022-10-29 09:32] LABS: METHAMPHETAMINES,URINE POSITIVE (NEGATIVE)
[2022-10-29 09:41] LABS: BACTERIA,URINE NOT SEEN /HPF (0-FEW/HPF); EPITHELIAL CELLS,URINE RARE /HPF (NOT SEEN); MUCUS,URINE NOT SEEN /LPF (NOT SEEN); RBC,URINE NOT SEEN /HPF (0-5); WBC,URINE NOT SEEN /HPF (0-5/HPF)
[2022-10-29] MEDS: Metoprolol Tartrate 5 MG/5 ML SDV IVPUSH ONE (10:51)
[2022-10-29 10:52] VITALS: BP 155/105; PULSE 133
== END 2022-10-29 12:50 | disposition home or self-care (01) ==
LOC: DL.ED 07:21
DX: R07.89 Other chest pain (principal); R00.0 Tachycardia, unspecified; F15.129 Other stimulant abuse with intoxication, unspecified; F10.920 Alcohol use, unspecified with intoxication, uncomplicated; E87.6 Hypokalemia; I10 Essential (primary) hypertension; E11.9 Type 2 diabetes mellitus without complications; Z86.16 Personal history of COVID-19; Z88.8 Allergy status to other drugs, medicaments and biological substances; Y90.6 Blood alcohol level of 120-199 mg/100 ml; Z91.148 Patient's other noncompliance with medication regimen for other reason
CPT/HCPCS: 36415; 80053; 80305; 80307; 81001; 83690; 84484; 85025; 93005; 93010; 96374; 96375; 99283; 99285; A9270; J2405; J3490

== ENCOUNTER 2022-11-06 23:31 | Emergency (ER) | payer MEDICAID ==
[2022-11-06] MEDS ORDERED: Ketorolac 30 MG/ML SDV IVPUSH ONE (23:43)
[2022-11-06] MEDS ORDERED: LORazepam 2 MG/ML SDV IVPUSH ONE (23:43)
[2022-11-06 23:44] VITALS: BP 147/87; PULSE 117
[2022-11-06] MEDS ORDERED: Aspirin 81 MG Tab.Chew PO ONE (23:44)
[2022-11-06 23:51] LABS: BASOPHILS PERCENT AUTO 1.2 % (0.0-1.0); EOSINOPHILS PERCENT AUTO 0.6 % (1.0-3.0); HEMOGLOBIN 12.8 g/dL (14.0-18.0); LYMPHOCYTES PERCENT AUTO 32.8 % (20.5-50.1); MEAN CORPUSCULAR HEMOGLOBIN 30.3 pg (27.0-34.0); MEAN CORPUSCULAR HGB CONC 33.7 g/dL (33.0-35.0); MONOCYTES PERCENT AUTO 9.6 % (2-8); NEUTROPHILS PERCENT AUTO 55.8 % (42.2-75.2); PLATELET COUNT,PLT 157 10^3/uL (150-450); RED BLOOD CELL COUNT 4.22 10^6/uL (4.6-6.2); WHITE BLOOD CELL COUNT,WBC 6.7 10^3/uL (5.0-10.0)
[2022-11-07 00:06] LABS: A/G RATIO 0.9; ALBUMIN 3.8 g/dL (3.4-5.0); BILIRUBIN TOTAL 0.3 mg/dL (0.2-1.0); BUN/CREATININE RATIO 10.6 (No establ ref range); CALCIUM 8.2 mg/dL (8.5-10.1); CREATININE 1.04 mg/dL (0.70-1.30); EST CRCL DRUG DOSING (CG) 102.36 mL/min
[2022-11-07 00:06] LABS: AMPHETAMINES,URINE NEGATIVE (NEGATIVE); BARBITURATES,URINE NEGATIVE (NEGATIVE); BENZODIAZEPINE,URINE NEGATIVE (NEGATIVE); MDMA (ECSTASY), URINE NEGATIVE (NEGATIVE); METHADONE,URINE NEGATIVE (NEGATIVE); METHAMPHETAMINES,URINE NEGATIVE (NEGATIVE); OPIATES,URINE NEGATIVE (NEGATIVE); OXYCODONE,URINE NEGATIVE (NEGATIVE); PHENCYCLIDINE,URINE NEGATIVE (NEGATIVE); TCA,URINE NEGATIVE (NEGATIVE)
[2022-11-07] MEDS ORDERED: Clopidogrel 75 MG Tab PO ONE (00:55)
[2022-11-07] MEDS ORDERED: Aspirin 81 MG Tab.Chew PO ONE (00:55)
[2022-11-07] MEDS ORDERED: Enoxaparin 100 MG/1 ML Syringe SUBCUT ONE (00:56)
[2022-11-07] MEDS ORDERED: Iopamidol 755 Mg/ML 100 ML Bottle IVPUSH ONE (01:09)
== END 2022-11-07 03:17 ==
LOC: DL.ED 23:31
DX: I21.4 Non-ST elevation (NSTEMI) myocardial infarction (principal); I10 Essential (primary) hypertension; E11.9 Type 2 diabetes mellitus without complications; Z86.16 Personal history of COVID-19; Z88.8 Allergy status to other drugs, medicaments and biological substances; Z79.899 Other long term (current) drug therapy
CPT/HCPCS: 36415; 71045; 71275; 80053; 80305-QW; 84484; 85025; 85379; 93005; 93010; 96372; 96374; 96375; 99291; 99291-25; A9270-GY; J1650; J1885; J2060; Q9967

== ENCOUNTER 2022-11-20 10:14 | Emergency (ER) | payer MEDICAID ==
[2022-11-20] MEDS ORDERED: Ondansetron 4 MG/2 ML SDV IV ONE (10:39)
[2022-11-20] MEDS ORDERED: Thiamine 100 MG in Sodium Chloride 0.9% 100 ML IV ONE (10:39)
[2022-11-20] MEDS ORDERED: Sodium Chloride 0.9% 1,000 ML IV ONE (10:39)
[2022-11-20] MEDS ORDERED: LORazepam 2 MG/ML SDV IVPUSH ONE (10:40)
[2022-11-20 10:57] LABS: EOSINOPHILS PERCENT AUTO 0.6 % (1.0-3.0); HEMATOCRIT 35.1 % (40.0-54.0); LYMPHOCYTES PERCENT AUTO 23.8 % (20.5-50.1); MEAN CORPUSCULAR HGB CONC 34.2 g/dL (33.0-35.0); MEAN CORPUSCULAR VOLUME 90.7 fL (80-100); MONOCYTES PERCENT AUTO 6.8 % (2-8); NEUTROPHILS PERCENT AUTO 67.8 % (42.2-75.2); PLATELET COUNT,PLT 198 10^3/uL (150-450); RED BLOOD CELL COUNT 3.87 10^6/uL (4.6-6.2); WHITE BLOOD CELL COUNT,WBC 6.9 10^3/uL (5.0-10.0)
[2022-11-20 11:02] LABS: APPEARANCE,URINE CLEAR (CLEAR); BILIRUBIN,URINE NEGATIVE (NEGATIVE); COLOR,URINE DARK YELLOW (YELLOW); GLUCOSE,URINE NEGATIVE (NEGATIVE); KETONES,URINE TRACE (NEGATIVE); LEUKOCYTE ESTERASE,URINE NEGATIVE (NEGATIVE); NITRITE,URINE NEGATIVE (NEGATIVE); OCCULT BLOOD,URINE MODERATE (NEGATIVE); PH,URINE 6.5 (5.0-9.0); PROTEIN,URINE 100 (NEGATIVE)
[2022-11-20 11:06] LABS: AMPHETAMINES,URINE NEGATIVE (NEGATIVE); BARBITURATES,URINE NEGATIVE (NEGATIVE); BENZODIAZEPINE,URINE NEGATIVE (NEGATIVE); MDMA (ECSTASY), URINE NEGATIVE (NEGATIVE); METHADONE,URINE NEGATIVE (NEGATIVE); METHAMPHETAMINES,URINE POSITIVE (NEGATIVE); OPIATES,URINE NEGATIVE (NEGATIVE); OXYCODONE,URINE NEGATIVE (NEGATIVE); PHENCYCLIDINE,URINE NEGATIVE (NEGATIVE); TCA,URINE NEGATIVE (NEGATIVE)
[2022-11-20 11:16] LABS: BACTERIA,URINE RARE /HPF (0-FEW/HPF); EPITHELIAL CELLS,URINE RARE /HPF (NOT SEEN); RBC,URINE 30-40 /HPF (0-5); WBC,URINE 0-5 /HPF (0-5/HPF)
[2022-11-20 11:20] LABS: A/G RATIO 0.9; ALBUMIN 3.7 g/dL (3.4-5.0); ANION GAP 15.5 mEq/L (7-13); BILIRUBIN TOTAL 0.7 mg/dL (0.2-1.0); CALCIUM 7.4 mg/dL (8.5-10.1); CREATININE 0.8 mg/dL (0.70-1.30); EST CRCL DRUG DOSING (CG) 124.69 mL/min; POTASSIUM,K 3.5 mmol/L (3.5-5.1)
[2022-11-20] MEDS ORDERED: Calcium Chloride 10% 1 GM/10 ML Syringe IVPUSH ONE (11:29)
[2022-11-20] MEDS ORDERED: cefTRIAXone 1 GM Vial IVPUSH ONE (11:29)
[2022-11-20] MEDS ORDERED: Doxycycline Monohydrate 100 MG Cap PO ONE (11:30)
[2022-11-20 14:27] VITALS: BP 133/77; PULSE 100
[2022-11-22 12:47] LABS: C.TRACHOMATIS BY TMA Negative (Negative); M GENITALIUM Negative (Negative); M GENITALIUM SOURCE Urine; N.GONORRHOEAE BY TMA Negative (Negative); SOURCE Urine
== END 2022-11-20 14:25 | disposition home or self-care (01) ==
LOC: DL.ED 10:14
DX: S00.03XA Contusion of scalp, initial encounter (principal); S80.12XA Contusion of left lower leg, initial encounter; S80.11XA Contusion of right lower leg, initial encounter; S60.222A Contusion of left hand, initial encounter; S60.221A Contusion of right hand, initial encounter; F10.129 Alcohol abuse with intoxication, unspecified; F15.90 Other stimulant use, unspecified, uncomplicated; I10 Essential (primary) hypertension; E11.9 Type 2 diabetes mellitus without complications; E83.51 Hypocalcemia; F17.210 Nicotine dependence, cigarettes, uncomplicated; Z88.8 Allergy status to other drugs, medicaments and biological substances; Z86.16 Personal history of COVID-19; Z20.2 Contact with and (suspected) exposure to infections with a predominantly sexual mode of transmission; Y90.8 Blood alcohol level of 240 mg/100 ml or more; Y04.0XXA Assault by unarmed brawl or fight, initial encounter
CPT/HCPCS: 36415; 80053; 80305; 80307; 81001; 85025; 87491; 87563; 87591; 96361; 96365; 96375; 99284; A9270; C1758; J0696; J2060; J2405; J3411; J3490; J7030

== ENCOUNTER 2022-11-22 14:52 | Emergency (ER) | payer MEDICAID ==
[~2022-11-22 14:52] MED LIST changes: -Sodium Chloride 0.9% 1,000 ML IV ONE
[2022-11-22] MEDS ORDERED: Sodium Chloride 0.9% 1,000 ML IV ONE (14:53)
[2022-11-22] MEDS ORDERED: Thiamine 100 MG in Sodium Chloride 0.9% 100 ML IV ONE (14:53)
[2022-11-22] MEDS ORDERED: Ondansetron 4 MG/2 ML SDV IV ONE (14:53)
[2022-11-22 15:06] LABS: EOSINOPHILS PERCENT AUTO 0.1 % (1.0-3.0); HEMATOCRIT 35.3 % (40.0-54.0); HEMOGLOBIN 11.9 g/dL (14.0-18.0); LYMPHOCYTES PERCENT AUTO 12.6 % (20.5-50.1); MEAN CORPUSCULAR HEMOGLOBIN 30.1 pg (27.0-34.0); MEAN CORPUSCULAR HGB CONC 33.7 g/dL (33.0-35.0); MEAN CORPUSCULAR VOLUME 89.1 fL (80-100); MONOCYTES PERCENT AUTO 5.6 % (2-8); NEUTROPHILS PERCENT AUTO 78.7 % (42.2-75.2); PLATELET COUNT,PLT 157 10^3/uL (150-450); RED BLOOD CELL COUNT 3.96 10^6/uL (4.6-6.2); WHITE BLOOD CELL COUNT,WBC 6.7 10^3/uL (5.0-10.0)
[2022-11-22 15:22] VITALS: BP 135/77; PULSE 119
[2022-11-22] MEDS ORDERED: LORazepam 2 MG/ML SDV IVPUSH ONE (15:28)
[2022-11-22 15:30] LABS: A/G RATIO 0.9; ALANINE AMINOTRANSFERASE,ALT 121 U/L (16-63); ALKALINE PHOSPHATASE 101 U/L (46-116); ANION GAP 20.2 mEq/L (7-13); ASPARTATE AMNIOTRANSFERASE,AST 118 U/L (15-37); B-TYPE NATRIURETIC PEPTIDE,BNP 17 pg/ml (0-100); BLOOD UREA NITROGEN,BUN 10 mg/dL (7-18); BUN/CREATININE RATIO 9.3 (No establ ref range); CALCIUM 8.4 mg/dL (8.5-10.1); CARBON DIOXIDE,CO2 22 mmol/L (21-32); CHLORIDE,CL 96 mmol/L (98-107); CREATININE 1.08 mg/dL (0.70-1.30); ESTIMATED GFR 92 mL/min (>=60); ETHANOL BLOOD MEDICAL 173 mg/dL (0); GLUCOSE RANDOM 123 mg/dL (70-99); LIPASE 286 U/L (73-393); POTASSIUM,K 3.2 mmol/L (3.5-5.1); PROTEIN TOTAL,TP 8.6 g/dL (6.4-8.2); SODIUM,NA 135 mmol/L (136-145)
[2022-11-22 15:42] LABS: APPEARANCE,URINE CLEAR (CLEAR); BILIRUBIN,URINE SMALL (NEGATIVE); GLUCOSE,URINE NEGATIVE (NEGATIVE); KETONES,URINE 40 (NEGATIVE); LEUKOCYTE ESTERASE,URINE NEGATIVE (NEGATIVE); NITRITE,URINE NEGATIVE (NEGATIVE); OCCULT BLOOD,URINE TRACE-LYSED (NEGATIVE); PH,URINE 5.5 (5.0-9.0); PROTEIN,URINE 100 (NEGATIVE); UROBILINOGEN,URINE 0.2 mg/dL (0.2-1.0)
[2022-11-22 15:44] LABS: COLOR,URINE DARK YELLOW (YELLOW)
[2022-11-22 15:48] LABS: AMPHETAMINES,URINE NEGATIVE (NEGATIVE); BARBITURATES,URINE NEGATIVE (NEGATIVE); BENZODIAZEPINE,URINE POSITIVE (NEGATIVE); MDMA (ECSTASY), URINE NEGATIVE (NEGATIVE); METHADONE,URINE NEGATIVE (NEGATIVE); METHAMPHETAMINES,URINE POSITIVE (NEGATIVE); OPIATES,URINE NEGATIVE (NEGATIVE); OXYCODONE,URINE NEGATIVE (NEGATIVE); PHENCYCLIDINE,URINE NEGATIVE (NEGATIVE); TCA,URINE NEGATIVE (NEGATIVE)
[2022-11-22 15:51] LABS: BACTERIA,URINE MODERATE /HPF (0-FEW/HPF); EPITHELIAL CELLS,URINE FEW /HPF (NOT SEEN); FINE GRANULAR CASTS,URINE FEW /LPF (NOT SEEN); MUCUS,URINE OCCASIONAL /LPF (NOT SEEN); RBC,URINE 0-5 /HPF (0-5); WBC,URINE 0-5 /HPF (0-5/HPF)
[2022-11-22] MEDS ORDERED: Pantoprazole 40 MG in Sodium Chloride 0.9% 100 ML IV ONE (17:05)
== END 2022-11-22 18:20 | disposition home or self-care (01) ==
LOC: DL.ED 14:52
DX: E87.6 Hypokalemia (principal); K29.20 Alcoholic gastritis without bleeding; F10.929 Alcohol use, unspecified with intoxication, unspecified; I10 Essential (primary) hypertension; E11.9 Type 2 diabetes mellitus without complications; F17.210 Nicotine dependence, cigarettes, uncomplicated; Z86.16 Personal history of COVID-19; Z79.899 Other long term (current) drug therapy; Z88.8 Allergy status to other drugs, medicaments and biological substances; Y90.6 Blood alcohol level of 120-199 mg/100 ml
CPT/HCPCS: 36415; 71045; 80053; 80305-QW; 80307; 81001; 83690; 83880; 84484; 85025; 93005; 93010; 96361; 96365; 96375; 99284; 99285-25; C9113; J2060; J2405; J3411; J3490; J7030

== ENCOUNTER 2022-12-20 09:43 | Emergency (ER) | payer MEDICAID ==
[2022-12-20] MEDS ORDERED: Sodium Chloride 0.9% 10 ML Syringe FLUSH PRN (09:44)
[2022-12-20] MEDS ORDERED: Thiamine 100 MG in Sodium Chloride 0.9% 100 ML IV ONE (09:45)
[2022-12-20] MEDS ORDERED: Lactated Ringers 1,000 ML IV ONE (09:45)
[2022-12-20 09:52] LABS: HEMATOCRIT 38.3 % (40.0-54.0); MEAN CORPUSCULAR HGB CONC 33.9 g/dL (33.0-35.0); MEAN CORPUSCULAR VOLUME 91.2 fL (80-100); PLATELET COUNT,PLT 208 10^3/uL (150-450); WHITE BLOOD CELL COUNT,WBC 8.9 10^3/uL (5.0-10.0)
[2022-12-20 10:03] LABS: BASOPHILS PERCENT AUTO 0.7 % (0.0-1.0); LYMPHOCYTES PERCENT AUTO 39.2 % (20.5-50.1); MONOCYTES PERCENT AUTO 8.3 % (2-8); NEUTROPHILS PERCENT AUTO 50.8 % (42.2-75.2)
[2022-12-20 10:15] LABS: A/G RATIO 0.9; ALANINE AMINOTRANSFERASE,ALT 155 U/L (16-63); ALBUMIN 3.8 g/dL (3.4-5.0); ALKALINE PHOSPHATASE 92 U/L (46-116); ANION GAP 14.4 mEq/L (7-13); ASPARTATE AMNIOTRANSFERASE,AST 109 U/L (15-37); BILIRUBIN TOTAL 0.4 mg/dL (0.2-1.0); BLOOD UREA NITROGEN,BUN 9 mg/dL (7-18); BUN/CREATININE RATIO 11.4 (No establ ref range); CALCIUM 7.4 mg/dL (8.5-10.1); CARBON DIOXIDE,CO2 24 mmol/L (21-32); CHLORIDE,CL 109 mmol/L (98-107); CREATININE 0.79 mg/dL (0.70-1.30); GLUCOSE RANDOM 134 mg/dL (70-99); POTASSIUM,K 3.4 mmol/L (3.5-5.1); SODIUM,NA 144 mmol/L (136-145)
[2022-12-20 10:17] LABS: ESTIMATED GFR 118 mL/min (>=60); ETHANOL BLOOD MEDICAL 462 mg/dL (0)
[2022-12-20 10:18] VITALS: BP 130/103; PULSE 92
[2022-12-20 10:25] LABS: BAND PERCENT MAN 1 %; BASOPHILS PERCENT MAN 1; EOSINOPHILS PERCENT MAN 3 % (1-3); LYMPHOCYTES PERCENT MAN 37 % (20-50); MONOCYTES PERCENT MAN 6 % (2-8); SEG NEUTROPHILS PERCENT MAN 52 % (42-75)
[2022-12-20 10:30] LABS: APPEARANCE,URINE CLEAR (CLEAR); BILIRUBIN,URINE NEGATIVE (NEGATIVE); COLOR,URINE YELLOW (YELLOW); GLUCOSE,URINE NEGATIVE (NEGATIVE); KETONES,URINE NEGATIVE (NEGATIVE); LEUKOCYTE ESTERASE,URINE NEGATIVE (NEGATIVE); NITRITE,URINE NEGATIVE (NEGATIVE); OCCULT BLOOD,URINE NEGATIVE (NEGATIVE); PROTEIN,URINE NEGATIVE (NEGATIVE); UROBILINOGEN,URINE 0.2 mg/dL (0.2-1.0)
[2022-12-20 10:31] LABS: AMPHETAMINES,URINE NEGATIVE (NEGATIVE); BARBITURATES,URINE NEGATIVE (NEGATIVE); BENZODIAZEPINE,URINE NEGATIVE (NEGATIVE); MDMA (ECSTASY), URINE NEGATIVE (NEGATIVE); METHADONE,URINE NEGATIVE (NEGATIVE); METHAMPHETAMINES,URINE POSITIVE (NEGATIVE); OPIATES,URINE NEGATIVE (NEGATIVE); OXYCODONE,URINE NEGATIVE (NEGATIVE); PHENCYCLIDINE,URINE NEGATIVE (NEGATIVE); TCA,URINE NEGATIVE (NEGATIVE)
[2022-12-20 10:35] LABS: INR 0.9 (0.9-1.2); PROTHROMBIN TIME 8.9 SEC (9.0-12.0)
== END 2022-12-20 12:38 | disposition home or self-care (01) ==
LOC: DL.ED 09:43
DX: F10.120 Alcohol abuse with intoxication, uncomplicated (principal); F15.90 Other stimulant use, unspecified, uncomplicated; I10 Essential (primary) hypertension; E11.9 Type 2 diabetes mellitus without complications; Z88.8 Allergy status to other drugs, medicaments and biological substances; Z79.899 Other long term (current) drug therapy; Z86.16 Personal history of COVID-19; Y90.8 Blood alcohol level of 240 mg/100 ml or more
CPT/HCPCS: 36415; 80053; 80305-QW; 80307; 81003; 85025; 85610; 96365; 99284; 99284-25; J3411; J3490; J7120

== ENCOUNTER 2023-02-20 12:28 | Emergency (ER) | payer MEDICAID ==
[2023-02-20] MEDS ORDERED: Sodium Chloride 0.9% 10 ML Syringe FLUSH PRN (12:30)
[2023-02-20] MEDS ORDERED: Thiamine 100 MG in Sodium Chloride 0.9% 100 ML IV ONE (12:44)
[2023-02-20] MEDS ORDERED: Sodium Chloride 0.9% 1,000 ML IV ONE (12:44)
[2023-02-20 12:46] VITALS: BP 141/83; PULSE 84
[2023-02-20 12:47] LABS: BASOPHILS PERCENT AUTO 1.3 % (0.0-1.0); EOSINOPHILS PERCENT AUTO 0.7 % (1.0-3.0); HEMATOCRIT 41.5 % (40.0-54.0); HEMOGLOBIN 14.1 g/dL (14.0-18.0); LYMPHOCYTES PERCENT AUTO 40.3 % (20.5-50.1); MEAN CORPUSCULAR HEMOGLOBIN 28.8 pg (27.0-34.0); MEAN CORPUSCULAR VOLUME 84.9 fL (80-100); MONOCYTES PERCENT AUTO 9.7 % (2-8); PLATELET COUNT,PLT 239 10^3/uL (150-450); RED BLOOD CELL COUNT 4.89 10^6/uL (4.6-6.2); WHITE BLOOD CELL COUNT,WBC 5.5 10^3/uL (5.0-10.0)
[2023-02-20 13:05] LABS: A/G RATIO 0.8; ALBUMIN 3.9 g/dL (3.4-5.0); ANION GAP 14.8 mEq/L (7-13); BILIRUBIN TOTAL 0.3 mg/dL (0.2-1.0); BUN/CREATININE RATIO 10.4 (No establ ref range); CALCIUM 7.7 mg/dL (8.5-10.1); CREATININE 0.77 mg/dL (0.70-1.30); EST CRCL DRUG DOSING (CG) 136.94 mL/min; POTASSIUM,K 3.8 mmol/L (3.5-5.1); PROTEIN TOTAL,TP 8.6 g/dL (6.4-8.2)
[2023-02-20 13:49] LABS: APPEARANCE,URINE CLEAR (CLEAR); BILIRUBIN,URINE NEGATIVE (NEGATIVE); COLOR,URINE YELLOW (YELLOW); GLUCOSE,URINE NEGATIVE (NEGATIVE); KETONES,URINE NEGATIVE (NEGATIVE); LEUKOCYTE ESTERASE,URINE NEGATIVE (NEGATIVE); NITRITE,URINE NEGATIVE (NEGATIVE); OCCULT BLOOD,URINE NEGATIVE (NEGATIVE); PH,URINE 5.5 (5.0-9.0); PROTEIN,URINE NEGATIVE (NEGATIVE); UROBILINOGEN,URINE 0.2 mg/dL (0.2-1.0)
[2023-02-20 13:54] LABS: AMPHETAMINES,URINE NEGATIVE (NEGATIVE); BARBITURATES,URINE NEGATIVE (NEGATIVE); BENZODIAZEPINE,URINE NEGATIVE (NEGATIVE); MDMA (ECSTASY), URINE NEGATIVE (NEGATIVE); METHADONE,URINE NEGATIVE (NEGATIVE); METHAMPHETAMINES,URINE NEGATIVE (NEGATIVE); OPIATES,URINE NEGATIVE (NEGATIVE); OXYCODONE,URINE NEGATIVE (NEGATIVE); PHENCYCLIDINE,URINE NEGATIVE (NEGATIVE); TCA,URINE NEGATIVE (NEGATIVE)
== END 2023-02-20 14:55 | disposition home or self-care (01) ==
LOC: DL.ED 12:28
DX: K70.9 Alcoholic liver disease, unspecified (principal); F10.129 Alcohol abuse with intoxication, unspecified; I25.2 Old myocardial infarction; E11.9 Type 2 diabetes mellitus without complications; Z86.16 Personal history of COVID-19; Z79.899 Other long term (current) drug therapy; Z88.8 Allergy status to other drugs, medicaments and biological substances
CPT/HCPCS: 36415; 70450; 70486; 80053; 80305-QW; 80307; 81003; 85025; 96365; 99284; 99285-25; J3411; J3490; J7030

== ENCOUNTER 2023-03-10 23:11 | Emergency (ER) | payer MEDICAID ==
[2023-03-10 23:12] VITALS: BP 161/107; PULSE 129
[2023-03-11] MEDS ORDERED: Sodium Chloride 0.9% 10 ML Syringe FLUSH PRN (01:01)
[2023-03-11] MEDS ORDERED: Naloxone 2 MG/2 ML Syringe IVPUSH PRN (01:02)
[2023-03-11] MEDS ORDERED: Morphine 2 MG/ML SYRINGE IVPUSH ONE (01:02)
[2023-03-11] MEDS ORDERED: Iopamidol 612 MG/ML 100 ML Bottle IVPUSH ONE (01:02)
[2023-03-11 01:17] LABS: AMPHETAMINES,URINE NEGATIVE (NEGATIVE); BARBITURATES,URINE NEGATIVE (NEGATIVE); BENZODIAZEPINE,URINE NEGATIVE (NEGATIVE); MDMA (ECSTASY), URINE NEGATIVE (NEGATIVE); METHADONE,URINE NEGATIVE (NEGATIVE); METHAMPHETAMINES,URINE NEGATIVE (NEGATIVE); OPIATES,URINE NEGATIVE (NEGATIVE); OXYCODONE,URINE NEGATIVE (NEGATIVE); PHENCYCLIDINE,URINE NEGATIVE (NEGATIVE); TCA,URINE NEGATIVE (NEGATIVE)
[2023-03-11 01:18] LABS: HEMATOCRIT 36.2 % (40.0-54.0); HEMOGLOBIN 12.5 g/dL (14.0-18.0); MEAN CORPUSCULAR HEMOGLOBIN 28.7 pg (27.0-34.0); MEAN CORPUSCULAR HGB CONC 34.5 g/dL (33.0-35.0); MEAN CORPUSCULAR VOLUME 83.2 fL (80-100); PLATELET COUNT,PLT 140 10^3/uL (150-450); RED BLOOD CELL COUNT 4.35 10^6/uL (4.6-6.2); WHITE BLOOD CELL COUNT,WBC 8.8 10^3/uL (5.0-10.0)
[2023-03-11 01:25] LABS: BASOPHILS PERCENT AUTO 1.8 % (0.0-1.0); EOSINOPHILS PERCENT AUTO 0.1 % (1.0-3.0); LYMPHOCYTES PERCENT AUTO 13.2 % (20.5-50.1); NEUTROPHILS PERCENT AUTO 78.9 % (42.2-75.2)
[2023-03-11 01:26] LABS: APPEARANCE,URINE CLEAR (CLEAR); BILIRUBIN,URINE NEGATIVE (NEGATIVE); COLOR,URINE YELLOW (YELLOW); GLUCOSE,URINE NEGATIVE (NEGATIVE); KETONES,URINE 40 (NEGATIVE); LEUKOCYTE ESTERASE,URINE NEGATIVE (NEGATIVE); NITRITE,URINE NEGATIVE (NEGATIVE); OCCULT BLOOD,URINE SMALL (NEGATIVE); PH,URINE 6.5 (5.0-9.0); PROTEIN,URINE 30 (NEGATIVE)
[2023-03-11 01:33] LABS: A/G RATIO 0.9; ALBUMIN 4.2 g/dL (3.4-5.0); ANION GAP 17.2 mEq/L (7-13); BILIRUBIN TOTAL 0.7 mg/dL (0.2-1.0); BUN/CREATININE RATIO 10.3 (No establ ref range); CALCIUM 8.6 mg/dL (8.5-10.1); CREATININE 0.97 mg/dL (0.70-1.30); EST CRCL DRUG DOSING (CG) 108.71 mL/min; POTASSIUM,K 3.2 mmol/L (3.5-5.1); PROTEIN TOTAL,TP 8.8 g/dL (6.4-8.2)
[2023-03-11 01:36] LABS: BACTERIA,URINE RARE /HPF (0-FEW/HPF); EPITHELIAL CELLS,URINE RARE /HPF (NOT SEEN); RBC,URINE 0-5 /HPF (0-5); WBC,URINE 0-5 /HPF (0-5/HPF)
[2023-03-11 01:37] LABS: LYMPHOCYTES PERCENT MAN 15 % (20-50); MONOCYTES PERCENT MAN 2 % (2-8); SEG NEUTROPHILS PERCENT MAN 83 % (42-75)
[2023-03-11] MEDS ORDERED: Potassium Chloride 10 MEQ Tab.ER PO ONE (03:38)
[2023-03-11] MEDS ORDERED: Ketorolac 30 MG/ML SDV IM ONE (04:26)
== END 2023-03-11 04:47 | disposition home or self-care (01) ==
LOC: DL.ED 23:11
DX: S06.0X9A Concussion with loss of consciousness of unspecified duration, initial encounter (principal); S05.11XA Contusion of eyeball and orbital tissues, right eye, initial encounter; S05.12XA Contusion of eyeball and orbital tissues, left eye, initial encounter; S80.11XA Contusion of right lower leg, initial encounter; S80.12XA Contusion of left lower leg, initial encounter; S20.219A Contusion of unspecified front wall of thorax, initial encounter; S20.221A Contusion of right back wall of thorax, initial encounter; S30.1XXA Contusion of abdominal wall, initial encounter; S40.021A Contusion of right upper arm, initial encounter; R79.89 Other specified abnormal findings of blood chemistry; I25.2 Old myocardial infarction; I10 Essential (primary) hypertension; E87.6 Hypokalemia; E11.9 Type 2 diabetes mellitus without complications; F10.920 Alcohol use, unspecified with intoxication, uncomplicated; F17.210 Nicotine dependence, cigarettes, uncomplicated; Z79.899 Other long term (current) drug therapy; Z86.16 Personal history of COVID-19; Z88.8 Allergy status to other drugs, medicaments and biological substances; Y04.0XXA Assault by unarmed brawl or fight, initial encounter; Y92.009 Unspecified place in unspecified non-institutional (private) residence as the place of occurrence of the external cause
CPT/HCPCS: 36415; 70450; 70486; 71260; 72125; 74177; 80053; 80305-QW; 80307; 81001; 85025; 96372; 96374; 99284; 99285-25; A9270-GY; J1885; J2270; Q9967

== ENCOUNTER 2023-03-11 10:52 | Emergency (ER) | payer MEDICAID ==
[~2023-03-11 10:52] MED LIST changes: +LORazepam 2 MG/ML SDV IVPUSH ONE; +Ondansetron 4 MG/2 ML SDV IVPUSH ONE; +Sodium Chloride 0.9% 1,000 ML IV ONE; -Sodium Chloride 0.9% 10 ML Syringe FLUSH PRN
[2023-03-11 11:01] LABS: HEMATOCRIT 36.3 % (40.0-54.0); HEMOGLOBIN 12.4 g/dL (14.0-18.0); MEAN CORPUSCULAR HEMOGLOBIN 28.3 pg (27.0-34.0); MEAN CORPUSCULAR HGB CONC 34.2 g/dL (33.0-35.0); MEAN CORPUSCULAR VOLUME 82.9 fL (80-100); PLATELET COUNT,PLT 135 10^3/uL (150-450); RED BLOOD CELL COUNT 4.38 10^6/uL (4.6-6.2); WHITE BLOOD CELL COUNT,WBC 9.6 10^3/uL (5.0-10.0)
[2023-03-11 11:07] LABS: BASOPHILS PERCENT AUTO 1.4 % (0.0-1.0); LYMPHOCYTES PERCENT AUTO 8.2 % (20.5-50.1); MONOCYTES PERCENT AUTO 5.9 % (2-8); NEUTROPHILS PERCENT AUTO 84.5 % (42.2-75.2)
[2023-03-11 11:20] LABS: A/G RATIO 0.9; ALANINE AMINOTRANSFERASE,ALT 228 U/L (16-63); ALBUMIN 4.3 g/dL (3.4-5.0); ALKALINE PHOSPHATASE 125 U/L (46-116); ANION GAP 19.2 mEq/L (7-13); ASPARTATE AMNIOTRANSFERASE,AST 202 U/L (15-37); BILIRUBIN TOTAL 1.1 mg/dL (0.2-1.0); BLOOD UREA NITROGEN,BUN 13 mg/dL (7-18); BUN/CREATININE RATIO 11.4 (No establ ref range); CALCIUM 9.1 mg/dL (8.5-10.1); CARBON DIOXIDE,CO2 21 mmol/L (21-32); CHLORIDE,CL 93 mmol/L (98-107); CREATININE 1.14 mg/dL (0.70-1.30); GLUCOSE RANDOM 146 mg/dL (70-99); MAGNESIUM 1.7 mg/dL (1.8-2.4); POTASSIUM,K 3.2 mmol/L (3.5-5.1); PROTEIN TOTAL,TP 8.9 g/dL (6.4-8.2); SODIUM,NA 130 mmol/L (136-145)
[2023-03-11 11:23] LABS: ESTIMATED GFR 85 mL/min (>=60); ETHANOL BLOOD MEDICAL < 3 mg/dL (0)
[2023-03-11 11:36] LABS: LYMPHOCYTES PERCENT MAN 9 % (20-50); MONOCYTES PERCENT MAN 6 % (2-8); SEG NEUTROPHILS PERCENT MAN 85 % (42-75)
[2023-03-11 12:50] LABS: AMPHETAMINES,URINE NEGATIVE (NEGATIVE); BARBITURATES,URINE NEGATIVE (NEGATIVE); BENZODIAZEPINE,URINE NEGATIVE (NEGATIVE); MDMA (ECSTASY), URINE NEGATIVE (NEGATIVE); METHADONE,URINE NEGATIVE (NEGATIVE); METHAMPHETAMINES,URINE NEGATIVE (NEGATIVE); OPIATES,URINE POSITIVE (NEGATIVE); OXYCODONE,URINE NEGATIVE (NEGATIVE); PHENCYCLIDINE,URINE NEGATIVE (NEGATIVE); TCA,URINE NEGATIVE (NEGATIVE)
[2023-03-11 13:30] VITALS: PULSE 108
[2023-03-11 14:39] VITALS: BP 167/102
== END 2023-03-11 14:15 | disposition home or self-care (01) ==
LOC: DL.ED 10:52
DX: R55 Syncope and collapse (principal); E87.1 Hypo-osmolality and hyponatremia; E87.6 Hypokalemia; D64.9 Anemia, unspecified; R74.01 Elevation of levels of liver transaminase levels; I10 Essential (primary) hypertension; Z86.16 Personal history of COVID-19; Z79.899 Other long term (current) drug therapy; Z88.8 Allergy status to other drugs, medicaments and biological substances
CPT/HCPCS: 36415; 70450; 70486; 71260; 72125; 74177; 80053; 80305-QW; 80307; 81001; 82140; 83735; 85025; 96361; 96372; 96374; 96375; 99284; 99284-25; 99285-25; A9270-GY; J1885; J2060; J2270; J2405; J7030; Q9967

== ENCOUNTER 2023-04-30 08:43 | Observation (INO) | payer MEDICAID ==
[2023-04-30] MEDS ORDERED: Sodium Chloride 0.9% 10 ML Syringe FLUSH PRN (09:03)
[2023-04-30] MEDS ORDERED: LORazepam 2 MG/ML SDV IVPUSH ONE (09:04)
[2023-04-30] MEDS ORDERED: Sodium Chloride 0.9% 1,000 ML IV ONE ×2 (09:05→10:58)
[2023-04-30 09:15] LABS: HEMOGLOBIN 12.9 g/dL (14.0-18.0); MEAN CORPUSCULAR HEMOGLOBIN 28.2 pg (27.0-34.0); MEAN CORPUSCULAR HGB CONC 33.1 g/dL (33.0-35.0); MEAN CORPUSCULAR VOLUME 85.3 fL (80-100); PLATELET COUNT,PLT 166 10^3/uL (150-450); RED BLOOD CELL COUNT 4.57 10^6/uL (4.6-6.2); WHITE BLOOD CELL COUNT,WBC 8.6 10^3/uL (5.0-10.0)
[2023-04-30 09:23] LABS: BASOPHILS PERCENT AUTO 1.2 % (0.0-1.0); EOSINOPHILS PERCENT AUTO 0.2 % (1.0-3.0); LYMPHOCYTES PERCENT AUTO 25.1 % (20.5-50.1); MONOCYTES PERCENT AUTO 9.4 % (2-8); NEUTROPHILS PERCENT AUTO 64.1 % (42.2-75.2)
[2023-04-30 09:38] LABS: APPEARANCE,URINE CLEAR (CLEAR); BILIRUBIN,URINE NEGATIVE (NEGATIVE); COLOR,URINE YELLOW (YELLOW); GLUCOSE,URINE NEGATIVE (NEGATIVE); KETONES,URINE NEGATIVE (NEGATIVE); LEUKOCYTE ESTERASE,URINE NEGATIVE (NEGATIVE); NITRITE,URINE NEGATIVE (NEGATIVE); OCCULT BLOOD,URINE TRACE-INTACT (NEGATIVE); PROTEIN,URINE NEGATIVE (NEGATIVE); UROBILINOGEN,URINE 0.2 mg/dL (0.2-1.0)
[2023-04-30 09:40] LABS: AMPHETAMINES,URINE POSITIVE (NEGATIVE); BARBITURATES,URINE NEGATIVE (NEGATIVE); BENZODIAZEPINE,URINE NEGATIVE (NEGATIVE); MDMA (ECSTASY), URINE NEGATIVE (NEGATIVE); METHADONE,URINE NEGATIVE (NEGATIVE); METHAMPHETAMINES,URINE POSITIVE (NEGATIVE); OPIATES,URINE NEGATIVE (NEGATIVE); OXYCODONE,URINE NEGATIVE (NEGATIVE); PHENCYCLIDINE,URINE NEGATIVE (NEGATIVE); TCA,URINE NEGATIVE (NEGATIVE)
[2023-04-30 09:44] LABS: EPITHELIAL CELLS,URINE RARE /HPF (NOT SEEN); MUCUS,URINE FEW /LPF (NOT SEEN)
[2023-04-30 09:45] LABS: BACTERIA,URINE RARE /HPF (0-FEW/HPF); RBC,URINE 0-5 /HPF (0-5); WBC,URINE NOT SEEN /HPF (0-5/HPF)
[2023-04-30 10:05] LABS: LYMPHOCYTES PERCENT MAN 23 % (20-50); MONOCYTES PERCENT MAN 9 % (2-8); SEG NEUTROPHILS PERCENT MAN 68 % (42-75)
[2023-04-30 10:34] LABS: A/G RATIO 0.9; ANION GAP 17.7 mEq/L (7-13); BILIRUBIN TOTAL 0.5 mg/dL (0.2-1.0); BUN/CREATININE RATIO 4.8 (No establ ref range); CALCIUM 8.5 mg/dL (8.5-10.1); CREATININE 1.05 mg/dL (0.70-1.30); EST CRCL DRUG DOSING (CG) 100.42 mL/min; POTASSIUM,K 2.7 mmol/L (3.5-5.1); PROTEIN TOTAL,TP 8.6 g/dL (6.4-8.2)
[2023-04-30] MEDS ORDERED: Potassium Chloride 10 MEQ in Premix Bag 1 BAG IV ONE (10:57)
[2023-04-30] MEDS ORDERED: Aspirin 81 MG Tab.Chew PO ONE (11:00)
[2023-04-30] MEDS ORDERED: LORazepam 2 MG/ML SDV IV PRN (13:19)
[2023-04-30] MEDS ORDERED: MVI, Adult with Vitamin K 10 ML, Folic Acid 1 MG, Thiamine 100 MG in Lactated Ringers 1... IV ONE ×4 (13:19)
[2023-04-30] MEDS ORDERED: cloNIDine 0.1 MG Tab PO PRN (13:19)
[2023-04-30] MEDS ORDERED: Haloperidol Lactate 5 MG/ML SDV IM PRN (13:19)
[2023-04-30] MEDS ORDERED: LORazepam 0.5 MG Tab PO PRN (13:19)
[2023-04-30] MEDS ORDERED: Thiamine 100 MG in Sodium Chloride 0.9% 50 ML IV ONE (13:20)
[2023-04-30] MEDS ORDERED: Sennosides/Docusate Sodium 50-8.6 MG Tab PO PRN (13:23)
[2023-04-30] MEDS ORDERED: Ibuprofen 600 MG Tab PO PRN (13:23)
[2023-04-30] MEDS ORDERED: Magnesium Hydroxide 400 MG/5 ML Susp 30 ML Cup PO PRN (13:23)
[2023-04-30] MEDS ORDERED: Ondansetron 4 MG/2 ML SDV IVPUSH PRN (13:23)
[2023-04-30] MEDS ORDERED: Albuterol/Ipratropium 3.0-0.5 MG/3 ML Neb Soln NEB PRN (13:23)
[2023-04-30] MEDS ORDERED: Polyethylene Glycol 3350 Powder 17 GM Packet PO PRN (13:23)
[2023-04-30] MEDS ORDERED: HYDROmorphone 0.5 MG/0.5 ML Syringe IVPUSH PRN (13:23)
[2023-04-30] MEDS ORDERED: Naloxone 2 MG/2 ML Syringe IVPUSH PRN (13:23)
[2023-04-30] MEDS ORDERED: Metoprolol Tartrate 5 MG/5 ML SDV IVPUSH PRN (13:41)
[2023-04-30] MEDS ORDERED: hydrALAZINE 20 MG/ML SDV IVPUSH PRN (13:41)
[2023-04-30 14:03] LABS: HEMOGLOBIN A1C 5.1 % (<5.7)
[2023-04-30] MEDS: cloNIDine 0.1 MG Tab PO SCH ×2 (15:26→20:48)
[2023-04-30] MEDS ORDERED: Potassium Chloride 10 MEQ Tab.ER PO ONE (17:00)
[2023-04-30] MEDS ORDERED: Diltiazem 25 MG/5 ML SDV IVPUSH PRN (19:13)
[2023-04-30] MEDS: Enoxaparin 100 MG/1 ML Syringe SUBCUT SCH (20:48)
[2023-04-30] MEDS ORDERED: hydrOXYzine HCl 25 MG Tab PO SCH (21:00)
[2023-05-01] MEDS ORDERED: Pantoprazole 40 MG Vial IVPUSH SCH (06:00)
[2023-05-01 06:31] LABS: BASOPHILS PERCENT AUTO 1.2 % (0.0-1.0); EOSINOPHILS PERCENT AUTO 1.7 % (1.0-3.0); HEMATOCRIT 36.6 % (40.0-54.0); HEMOGLOBIN 11.9 g/dL (14.0-18.0); LYMPHOCYTES PERCENT AUTO 36.8 % (20.5-50.1); MEAN CORPUSCULAR HEMOGLOBIN 28.2 pg (27.0-34.0); MEAN CORPUSCULAR HGB CONC 32.5 g/dL (33.0-35.0); MEAN CORPUSCULAR VOLUME 86.7 fL (80-100); NEUTROPHILS PERCENT AUTO 47.3 % (42.2-75.2); PLATELET COUNT,PLT 125 10^3/uL (150-450); RED BLOOD CELL COUNT 4.22 10^6/uL (4.6-6.2); WHITE BLOOD CELL COUNT,WBC 4.1 10^3/uL (5.0-10.0)
[2023-05-01 07:08] LABS: ALBUMIN 3.2 g/dL (3.4-5.0); ANION GAP 13.4 mEq/L (7-13); CALCIUM 8.5 mg/dL (8.5-10.1); EST CRCL DRUG DOSING (CG) 105.44 mL/min; MAGNESIUM 1.8 mg/dL (1.8-2.4); POTASSIUM,K 3.4 mmol/L (3.5-5.1); PROTEIN TOTAL,TP 7.4 g/dL (6.4-8.2)
[2023-05-01 07:24] LABS: A/G RATIO 0.76
[2023-05-01] MEDS ORDERED: Potassium Chloride 10 MEQ Tab.ER PO SCH (08:00)
[2023-05-01] MEDS: cloNIDine 0.1 MG Tab PO SCH (08:25)
[2023-05-01] MEDS: Enoxaparin 100 MG/1 ML Syringe SUBCUT SCH (08:25)
[2023-05-01] MEDS ORDERED: Folic Acid 1 MG Tab PO SCH ×2 (09:00)
[2023-05-01] MEDS ORDERED: Multivitamin Tab PO SCH ×2 (09:00→21:00)
[2023-05-01] MEDS ORDERED: amLODIPine 5 MG Tab PO SCH (09:00)
[2023-05-01] MEDS ORDERED: Aspirin 81 MG Tab.EC PO SCH (09:00)
[2023-05-01] MEDS ORDERED: FLU (Fluarix Quad) QS2023-24(6MOS UP)/PF 60 MCG/0.5 ML Syringe IM ONE (09:04)
[2023-05-01 12:10] VITALS: BP 130/82; PULSE 89
[2023-05-02] MEDS ORDERED: Thiamine 100 MG Tab PO SCH (21:00)
== END 2023-05-01 11:35 | disposition home or self-care (01) ==
LOC: DL.ED 08:43 → DL.MS 12:16 → DL.ED 12:32
PROVIDERS: ADMIT Internal Medicine; ATTEND Internal Medicine
DX: R07.9 Chest pain, unspecified (principal); I10 Essential (primary) hypertension; K21.9 Gastro-esophageal reflux disease without esophagitis; E87.6 Hypokalemia; Z87.891 Personal history of nicotine dependence; Z79.899 Other long term (current) drug therapy
CPT/HCPCS: 36415; 71045; 80053; 80061; 80305; 80307; 81001; 83036; 83735; 84484; 85025; 90686; 93005; 93306; A9270; C9113; J1650; J2060; J3411; J3480; J3490; J7030; J7120; 93010; 99284

== ENCOUNTER 2023-07-06 14:19 | Emergency (ER) | payer MEDICAID ==
[2023-07-06 14:49] LABS: BASOPHILS PERCENT AUTO 1.2 % (0.0-1.0); EOSINOPHILS PERCENT AUTO 0.2 % (1.0-3.0); HEMATOCRIT 36.5 % (40.0-54.0); HEMOGLOBIN 11.9 g/dL (14.0-18.0); MEAN CORPUSCULAR HGB CONC 32.6 g/dL (33.0-35.0); MONOCYTES PERCENT AUTO 9.1 % (2-8); NEUTROPHILS PERCENT AUTO 57.5 % (42.2-75.2); PLATELET COUNT,PLT 216 10^3/uL (150-450); WHITE BLOOD CELL COUNT,WBC 8.3 10^3/uL (5.0-10.0)
[2023-07-06] MEDS: Sodium Chloride 0.9% 10 ML Syringe FLUSH PRN (14:57)
[2023-07-06 15:12] LABS: A/G RATIO 0.9; ALANINE AMINOTRANSFERASE,ALT 168 U/L (16-63); ALBUMIN 4.1 g/dL (3.4-5.0); ALKALINE PHOSPHATASE 110 U/L (46-116); ANION GAP 15.3 mEq/L (7-13); ASPARTATE AMNIOTRANSFERASE,AST 146 U/L (15-37); BILIRUBIN TOTAL 0.7 mg/dL (0.2-1.0); BLOOD UREA NITROGEN,BUN 9 mg/dL (7-18); BUN/CREATININE RATIO 10.3 (No establ ref range); CALCIUM 8.2 mg/dL (8.5-10.1); CARBON DIOXIDE,CO2 26 mmol/L (21-32); CHLORIDE,CL 105 mmol/L (98-107); CREATININE 0.87 mg/dL (0.70-1.30); ESTIMATED GFR 115 mL/min (>=60); GLUCOSE RANDOM 124 mg/dL (70-99); POTASSIUM,K 3.3 mmol/L (3.5-5.1); PROTEIN TOTAL,TP 8.6 g/dL (6.4-8.2); SODIUM,NA 143 mmol/L (136-145)
[2023-07-06] MEDS: Sodium Chloride 0.9% 1,000 ML IV ONE (15:16)
[2023-07-06 17:08] VITALS: BP 133/82; PULSE 99
== END 2023-07-06 18:00 | disposition home or self-care (01) ==
LOC: DL.ED 14:19
DX: E87.6 Hypokalemia (principal); R63.0 Anorexia; F10.10 Alcohol abuse, uncomplicated; R79.89 Other specified abnormal findings of blood chemistry; E11.9 Type 2 diabetes mellitus without complications; Z86.16 Personal history of COVID-19; I10 Essential (primary) hypertension; I25.10 Atherosclerotic heart disease of native coronary artery without angina pectoris; Z79.899 Other long term (current) drug therapy; Z79.82 Long term (current) use of aspirin; Z88.8 Allergy status to other drugs, medicaments and biological substances
CPT/HCPCS: 36415; 71045; 80053; 84484; 85025; 93005; 93010; 96360; 96361; 99284; 99285; J7030; J3490

== ENCOUNTER 2023-07-21 23:35 | Emergency (ER) | payer MEDICAID ==
[2023-07-21 23:47] VITALS: BP 165/108; PULSE 115
[2023-07-22 00:14] LABS: BASOPHILS PERCENT AUTO 2.8 % (0.0-1.0); EOSINOPHILS PERCENT AUTO 0.6 % (1.0-3.0); HEMATOCRIT 36.6 % (40.0-54.0); HEMOGLOBIN 12.5 g/dL (14.0-18.0); LYMPHOCYTES PERCENT AUTO 43.4 % (20.5-50.1); MEAN CORPUSCULAR HEMOGLOBIN 27.7 pg (27.0-34.0); MEAN CORPUSCULAR HGB CONC 34.2 g/dL (33.0-35.0); MONOCYTES PERCENT AUTO 8.7 % (2-8); NEUTROPHILS PERCENT AUTO 44.5 % (42.2-75.2); PLATELET COUNT,PLT 185 10^3/uL (150-450); RED BLOOD CELL COUNT 4.52 10^6/uL (4.6-6.2); WHITE BLOOD CELL COUNT,WBC 5.4 10^3/uL (5.0-10.0)
[2023-07-22 00:33] LABS: A/G RATIO 0.8; ALBUMIN 3.8 g/dL (3.4-5.0); ANION GAP 14.4 mEq/L (7-13); BILIRUBIN TOTAL 0.7 mg/dL (0.2-1.0); BUN/CREATININE RATIO 11.7 (No establ ref range); CALCIUM 7.6 mg/dL (8.5-10.1); CREATININE 1.03 mg/dL (0.70-1.30); EST CRCL DRUG DOSING (CG) 102.37 mL/min; MAGNESIUM 2.1 mg/dL (1.8-2.4); POTASSIUM,K 3.4 mmol/L (3.5-5.1); PROTEIN TOTAL,TP 8.3 g/dL (6.4-8.2)
[2023-07-22] MEDS: Iopamidol 612 MG/ML 100 ML Bottle IVPUSH ONE (00:44)
[2023-07-22 00:47] LABS: AMPHETAMINES,URINE NEGATIVE (NEGATIVE); BARBITURATES,URINE NEGATIVE (NEGATIVE); BENZODIAZEPINE,URINE NEGATIVE (NEGATIVE); MDMA (ECSTASY), URINE NEGATIVE (NEGATIVE); METHADONE,URINE NEGATIVE (NEGATIVE); METHAMPHETAMINES,URINE NEGATIVE (NEGATIVE); OPIATES,URINE NEGATIVE (NEGATIVE); OXYCODONE,URINE NEGATIVE (NEGATIVE); PHENCYCLIDINE,URINE NEGATIVE (NEGATIVE); TCA,URINE NEGATIVE (NEGATIVE)
[2023-07-22] MEDS: Lactated Ringers 1,000 ML IV ONE (01:23)
[2023-07-22] MEDS: Ketorolac 30 MG/ML SDV IVPUSH ONE (01:24)
[2023-07-22] MEDS: Potassium Chloride 10 MEQ Tab.ER PO ONE (01:31)
== END 2023-07-22 06:05 | disposition home or self-care (01) ==
LOC: DL.ED 23:35
DX: S82.65XA Nondisplaced fracture of lateral malleolus of left fibula, initial encounter for closed fracture (principal); S00.83XA Contusion of other part of head, initial encounter; E87.6 Hypokalemia; F10.120 Alcohol abuse with intoxication, uncomplicated; I10 Essential (primary) hypertension; I25.2 Old myocardial infarction; E11.9 Type 2 diabetes mellitus without complications; Z88.8 Allergy status to other drugs, medicaments and biological substances; Z79.82 Long term (current) use of aspirin; Z79.899 Other long term (current) drug therapy; Z86.16 Personal history of COVID-19; Y04.8XXA Assault by other bodily force, initial encounter
CPT/HCPCS: 36415; 70450; 71260; 72125; 73562; 73610; 74177; 80053; 80305; 80307; 83735; 85025; 96374; 99285; A9270; J1885; J7120; Q9967; 99284

== ENCOUNTER 2023-07-28 16:19 | Observation (INO) | payer MEDICAID ==
[2023-07-28] MEDS: LORazepam 2 MG/ML SDV IVPUSH ONE ×2 (16:55→18:23)
[2023-07-28] MEDS: Sodium Chloride 0.9% 1,000 ML IV ONE (16:55)
[2023-07-28 16:56] LABS: HEMATOCRIT 36.8 % (40.0-54.0); HEMOGLOBIN 12.1 g/dL (14.0-18.0); MEAN CORPUSCULAR HEMOGLOBIN 27.3 pg (27.0-34.0); MEAN CORPUSCULAR HGB CONC 32.9 g/dL (33.0-35.0); MEAN CORPUSCULAR VOLUME 83.1 fL (80-100); PLATELET COUNT,PLT 101 10^3/uL (150-450); RED BLOOD CELL COUNT 4.43 10^6/uL (4.6-6.2); WHITE BLOOD CELL COUNT,WBC 3.9 10^3/uL (5.0-10.0)
[2023-07-28 16:58] LABS: BASOPHILS PERCENT AUTO 3.8 % (0.0-1.0); LYMPHOCYTES PERCENT AUTO 50.4 % (20.5-50.1); MONOCYTES PERCENT AUTO 9.7 % (2-8); NEUTROPHILS PERCENT AUTO 35.1 % (42.2-75.2)
[2023-07-28 17:08] LABS: AMPHETAMINES,URINE NEGATIVE (NEGATIVE); APPEARANCE,URINE CLEAR (CLEAR); BARBITURATES,URINE NEGATIVE (NEGATIVE); BENZODIAZEPINE,URINE NEGATIVE (NEGATIVE); BILIRUBIN,URINE NEGATIVE (NEGATIVE); COLOR,URINE YELLOW (YELLOW); GLUCOSE,URINE NEGATIVE (NEGATIVE); KETONES,URINE NEGATIVE (NEGATIVE); LEUKOCYTE ESTERASE,URINE NEGATIVE (NEGATIVE); MDMA (ECSTASY), URINE NEGATIVE (NEGATIVE); METHADONE,URINE NEGATIVE (NEGATIVE); METHAMPHETAMINES,URINE NEGATIVE (NEGATIVE); NITRITE,URINE NEGATIVE (NEGATIVE); OCCULT BLOOD,URINE TRACE-INTACT (NEGATIVE); OPIATES,URINE NEGATIVE (NEGATIVE); OXYCODONE,URINE NEGATIVE (NEGATIVE); PH,URINE 6.5 (5.0-9.0); PHENCYCLIDINE,URINE NEGATIVE (NEGATIVE); PROTEIN,URINE TRACE (NEGATIVE); TCA,URINE NEGATIVE (NEGATIVE); UROBILINOGEN,URINE 0.2 mg/dL (0.2-1.0)
[2023-07-28 17:18] LABS: LACTIC ACID 1.6 mmol/L (0.4-2.0)
[2023-07-28 17:22] LABS: A/G RATIO 0.8; ALBUMIN 3.7 g/dL (3.4-5.0); ANION GAP 18.3 mEq/L (7-13); BILIRUBIN TOTAL 0.5 mg/dL (0.2-1.0); BUN/CREATININE RATIO 9.9 (No establ ref range); CALCIUM 7.8 mg/dL (8.5-10.1); CREATININE 0.81 mg/dL (0.70-1.30); EST CRCL DRUG DOSING (CG) 138.38 mL/min; MAGNESIUM 2.2 mg/dL (1.8-2.4); POTASSIUM,K 3.3 mmol/L (3.5-5.1); PROTEIN TOTAL,TP 8.5 g/dL (6.4-8.2)
[2023-07-28 17:40] LABS: EOSINOPHILS PERCENT MAN 2 % (1-3); LYMPHOCYTES PERCENT MAN 53 % (20-50); MONOCYTES PERCENT MAN 3 % (2-8); SEG NEUTROPHILS PERCENT MAN 41 % (42-75)
[2023-07-28 17:43] LABS: BACTERIA,URINE RARE /HPF (0-FEW/HPF); EPITHELIAL CELLS,URINE RARE /HPF (NOT SEEN); RBC,URINE 0-5 /HPF (0-5); WBC,URINE 0-5 /HPF (0-5/HPF)
[2023-07-28] MEDS ORDERED: Ondansetron 4 MG/2 ML SDV IVPUSH PRN (20:08)
[2023-07-28] MEDS: Sodium Chloride 0.9% 1,000 ML IV SCH (20:26)
[2023-07-29] MEDS: Potassium Chloride 10 MEQ Tab.ER PO ONE (08:51)
[2023-07-29] MEDS: Acetaminophen 500 MG Tab PO PRN (08:57)
[2023-07-29 10:37] VITALS: BP 137/90; PULSE 118
[2023-07-30] MEDS ORDERED: Enoxaparin 40 MG/0.4 ML Syringe SUBCUT SCH (09:00)
== END 2023-07-29 11:07 | disposition home or self-care (01) ==
LOC: DL.ED 16:19 → DL.MS 19:52
PROVIDERS: ADMIT Family Medicine Adult Medicine; ATTEND Family Medicine Adult Medicine
DX: S82.202A Unspecified fracture of shaft of left tibia, initial encounter for closed fracture (principal); S20.219A Contusion of unspecified front wall of thorax, initial encounter; S40.029A Contusion of unspecified upper arm, initial encounter; F10.220 Alcohol dependence with intoxication, uncomplicated; I10 Essential (primary) hypertension; F41.9 Anxiety disorder, unspecified; E11.9 Type 2 diabetes mellitus without complications; Z91.199 Patient's noncompliance with other medical treatment and regimen due to unspecified reason; Z79.82 Long term (current) use of aspirin; Z79.899 Other long term (current) drug therapy; Y04.0XXA Assault by unarmed brawl or fight, initial encounter
CPT/HCPCS: 36415; 71045; 73610; 80053; 80305; 80307; 81001; 83605; 83690; 83735; 84484; 85025; 93005; 96361; 96374; 96376; 99222; 99285; A9270; J2060; J7030

== ENCOUNTER 2023-08-22 08:08 | Emergency (ER) | payer MEDICAID ==
[2023-08-22 08:18] LABS: HEMATOCRIT 42.3 % (40.0-54.0); HEMOGLOBIN 13.6 g/dL (14.0-18.0); MEAN CORPUSCULAR HEMOGLOBIN 27.1 pg (27.0-34.0); MEAN CORPUSCULAR HGB CONC 32.2 g/dL (33.0-35.0); MEAN CORPUSCULAR VOLUME 84.4 fL (80-100); PLATELET COUNT,PLT 284 10^3/uL (150-450); RED BLOOD CELL COUNT 5.01 10^6/uL (4.6-6.2); WHITE BLOOD CELL COUNT,WBC 4.8 10^3/uL (5.0-10.0)
[2023-08-22 08:30] VITALS: BP 133/80; PULSE 91
[2023-08-22] MEDS: Sodium Chloride 0.9% 10 ML Syringe FLUSH PRN (08:30)
[2023-08-22 08:31] LABS: BASOPHILS PERCENT AUTO 3.5 % (0.0-1.0); EOSINOPHILS PERCENT AUTO 1.7 % (1.0-3.0); LYMPHOCYTES PERCENT AUTO 48.2 % (20.5-50.1); MONOCYTES PERCENT AUTO 6.1 % (2-8); NEUTROPHILS PERCENT AUTO 40.5 % (42.2-75.2)
[2023-08-22 08:44] LABS: BAND PERCENT MAN 1 %; BASOPHILS PERCENT MAN 4; EOSINOPHILS PERCENT MAN 2 % (1-3); LYMPHOCYTES PERCENT MAN 46 % (20-50); MONOCYTES PERCENT MAN 9 % (2-8); SEG NEUTROPHILS PERCENT MAN 38 % (42-75)
[2023-08-22 08:45] LABS: A/G RATIO 0.9; ALBUMIN 4.1 g/dL (3.4-5.0); ANION GAP 16.6 mEq/L (7-13); BILIRUBIN TOTAL 0.3 mg/dL (0.2-1.0); BUN/CREATININE RATIO 8.9 (No establ ref range); CREATININE 0.9 mg/dL (0.70-1.30); EST CRCL DRUG DOSING (CG) 128.23 mL/min; POTASSIUM,K 3.6 mmol/L (3.5-5.1); PROTEIN TOTAL,TP 8.9 g/dL (6.4-8.2); PROTHROMBIN TIME 9.9 SEC (9.0-12.0); PTT,PARTIAL THROMBOPLSTIN TIME 24.5 SEC (22.0-34.0)
[2023-08-22 09:00] LABS: CORONAVIRUS COVID-19 NAA NEGATIVE (NEGATIVE); INFLUENZA A NAA NEGATIVE (NEGATIVE); INFLUENZA B NAA NEGATIVE (NEGATIVE); RESPIRATORY SYNCYTIAL VIR NAA NEGATIVE (NEGATIVE)
[2023-08-22 09:21] LABS: AMPHETAMINES,URINE NEGATIVE (NEGATIVE); APPEARANCE,URINE CLEAR (CLEAR); BARBITURATES,URINE NEGATIVE (NEGATIVE); BENZODIAZEPINE,URINE NEGATIVE (NEGATIVE); BILIRUBIN,URINE NEGATIVE (NEGATIVE); COLOR,URINE YELLOW (YELLOW); GLUCOSE,URINE NEGATIVE (NEGATIVE); KETONES,URINE NEGATIVE (NEGATIVE); LEUKOCYTE ESTERASE,URINE NEGATIVE (NEGATIVE); MDMA (ECSTASY), URINE NEGATIVE (NEGATIVE); METHADONE,URINE NEGATIVE (NEGATIVE); METHAMPHETAMINES,URINE NEGATIVE (NEGATIVE); NITRITE,URINE NEGATIVE (NEGATIVE); OCCULT BLOOD,URINE TRACE-INTACT (NEGATIVE); OPIATES,URINE NEGATIVE (NEGATIVE); OXYCODONE,URINE NEGATIVE (NEGATIVE); PHENCYCLIDINE,URINE NEGATIVE (NEGATIVE); PROTEIN,URINE 100 (NEGATIVE); TCA,URINE NEGATIVE (NEGATIVE); UROBILINOGEN,URINE 0.2 mg/dL (0.2-1.0)
[2023-08-22 09:33] LABS: BACTERIA,URINE MODERATE /HPF (0-FEW/HPF); EPITHELIAL CELLS,URINE FEW /HPF (NOT SEEN); RBC,URINE 0-5 /HPF (0-5)
[2023-08-22 09:34] LABS: HYALINE CASTS,URINE MODERATE; MUCUS,URINE MANY /LPF (NOT SEEN)
[2023-08-22] MEDS: cefTRIAXone 1 GM Vial IVPUSH ONE (10:04)
[2023-08-22] MEDS: Thiamine 200 MG in Sodium Chloride 0.9% 100 ML IV ONE (10:04)
== END 2023-08-22 11:07 | disposition home or self-care (01) ==
LOC: DL.ED 08:08
DX: R07.9 Chest pain, unspecified (principal); K70.9 Alcoholic liver disease, unspecified; F10.10 Alcohol abuse, uncomplicated; I10 Essential (primary) hypertension; E11.9 Type 2 diabetes mellitus without complications; F17.200 Nicotine dependence, unspecified, uncomplicated; Z86.16 Personal history of COVID-19; Z79.82 Long term (current) use of aspirin; Z79.899 Other long term (current) drug therapy; Z88.8 Allergy status to other drugs, medicaments and biological substances
CPT/HCPCS: 0241U; 36415; 71045; 71100; 80053; 80305; 80307; 81001; 83690; 84484; 85025; 85610; 85730; 87491; 87563; 87591; 93005; 93010; 96365; 96375; 99284; 99285; J0696; J3411; J3490

== ENCOUNTER 2023-08-22 15:27 | Emergency (ER) | payer MEDICAID ==
[2023-08-22 15:38] VITALS: BP 139/104; PULSE 96
[2023-08-22 15:46] LABS: AMPHETAMINES,URINE NEGATIVE (NEGATIVE); BARBITURATES,URINE NEGATIVE (NEGATIVE); BENZODIAZEPINE,URINE NEGATIVE (NEGATIVE); MDMA (ECSTASY), URINE NEGATIVE (NEGATIVE); METHADONE,URINE NEGATIVE (NEGATIVE); METHAMPHETAMINES,URINE NEGATIVE (NEGATIVE); OPIATES,URINE NEGATIVE (NEGATIVE); OXYCODONE,URINE NEGATIVE (NEGATIVE); PHENCYCLIDINE,URINE NEGATIVE (NEGATIVE); TCA,URINE NEGATIVE (NEGATIVE)
[2023-08-22 15:48] LABS: EOSINOPHILS PERCENT AUTO 0.9 % (1.0-3.0); HEMATOCRIT 42.1 % (40.0-54.0); HEMOGLOBIN 13.7 g/dL (14.0-18.0); LYMPHOCYTES PERCENT AUTO 37.9 % (20.5-50.1); MEAN CORPUSCULAR HEMOGLOBIN 27.4 pg (27.0-34.0); MEAN CORPUSCULAR HGB CONC 32.5 g/dL (33.0-35.0); MEAN CORPUSCULAR VOLUME 84.2 fL (80-100); MONOCYTES PERCENT AUTO 5.8 % (2-8); NEUTROPHILS PERCENT AUTO 52.4 % (42.2-75.2); PLATELET COUNT,PLT 280 10^3/uL (150-450); WHITE BLOOD CELL COUNT,WBC 7.8 10^3/uL (5.0-10.0)
[2023-08-22 16:08] LABS: A/G RATIO 0.9; ALBUMIN 4.1 g/dL (3.4-5.0); ANION GAP 20.5 mEq/L (7-13); BILIRUBIN TOTAL 0.3 mg/dL (0.2-1.0); BUN/CREATININE RATIO 9.9 (No establ ref range); CREATININE 0.91 mg/dL (0.70-1.30); EST CRCL DRUG DOSING (CG) 126.83 mL/min; POTASSIUM,K 3.5 mmol/L (3.5-5.1); PROTEIN TOTAL,TP 8.9 g/dL (6.4-8.2)
== END 2023-08-22 17:30 | disposition home or self-care (01) ==
LOC: DL.ED 15:27
DX: K70.9 Alcoholic liver disease, unspecified (principal); F10.129 Alcohol abuse with intoxication, unspecified; I10 Essential (primary) hypertension; I25.2 Old myocardial infarction; E11.9 Type 2 diabetes mellitus without complications; Z88.8 Allergy status to other drugs, medicaments and biological substances; Z79.82 Long term (current) use of aspirin; Z79.899 Other long term (current) drug therapy; Z86.16 Personal history of COVID-19; Y90.8 Blood alcohol level of 240 mg/100 ml or more
CPT/HCPCS: 36415; 80053; 80305-QW; 80307; 85025; 99284; 99285

== ENCOUNTER 2023-08-23 19:30 | Emergency (ER) | payer MEDICAID ==
[2023-08-23 20:35] LABS: BASOPHILS PERCENT AUTO 3.4 % (0.0-1.0); EOSINOPHILS PERCENT AUTO 0.8 % (1.0-3.0); HEMATOCRIT 40.3 % (40.0-54.0); HEMOGLOBIN 13.3 g/dL (14.0-18.0); MEAN CORPUSCULAR HEMOGLOBIN 27.4 pg (27.0-34.0); MEAN CORPUSCULAR VOLUME 82.9 fL (80-100); MONOCYTES PERCENT AUTO 6.9 % (2-8); NEUTROPHILS PERCENT AUTO 42.9 % (42.2-75.2); PLATELET COUNT,PLT 214 10^3/uL (150-450); RED BLOOD CELL COUNT 4.86 10^6/uL (4.6-6.2); WHITE BLOOD CELL COUNT,WBC 5.9 10^3/uL (5.0-10.0)
[2023-08-23] MEDS: Lactated Ringers 1,000 ML IV ONE ×2 (20:45→21:45)
[2023-08-23] MEDS: Pantoprazole 40 MG Vial IVPUSH ONE (20:47)
[2023-08-23 20:52] LABS: INR 0.9 (0.9-1.2); PROTHROMBIN TIME 9.7 SEC (9.0-12.0)
[2023-08-23] MEDS: Ketorolac 30 MG/ML SDV IVPUSH ONE (20:52)
[2023-08-23] MEDS: LORazepam 2 MG/ML SDV IVPUSH ONE (20:55)
[2023-08-23 20:58] LABS: A/G RATIO 0.9; ALANINE AMINOTRANSFERASE,ALT 264 U/L (16-63); ALKALINE PHOSPHATASE 105 U/L (46-116); ANION GAP 17.4 mEq/L (7-13); ASPARTATE AMNIOTRANSFERASE,AST 187 U/L (15-37); BILIRUBIN TOTAL 0.3 mg/dL (0.2-1.0); BLOOD UREA NITROGEN,BUN 7 mg/dL (7-18); CARBON DIOXIDE,CO2 25 mmol/L (21-32); CHLORIDE,CL 105 mmol/L (98-107); GLUCOSE RANDOM 149 mg/dL (70-99); LIPASE 120 U/L (16-77); MAGNESIUM 2.1 mg/dL (1.8-2.4); POTASSIUM,K 3.4 mmol/L (3.5-5.1); PROTEIN TOTAL,TP 8.7 g/dL (6.4-8.2); SODIUM,NA 144 mmol/L (136-145)
[2023-08-23 21:00] LABS: ESTIMATED GFR 100 mL/min (>=60)
[2023-08-23 21:23] VITALS: BP 141/88; PULSE 97
[2023-08-23] MEDS: Aspirin 81 MG Tab.Chew PO ONE (21:33)
== END 2023-08-24 04:24 | disposition home or self-care (01) ==
LOC: DL.ED 19:30
DX: K85.20 Alcohol induced acute pancreatitis without necrosis or infection (principal); I10 Essential (primary) hypertension; I25.2 Old myocardial infarction; E11.9 Type 2 diabetes mellitus without complications; Z88.8 Allergy status to other drugs, medicaments and biological substances; Z79.82 Long term (current) use of aspirin; Z79.899 Other long term (current) drug therapy; Z86.16 Personal history of COVID-19
CPT/HCPCS: 36415; 80053; 80307; 83690; 83735; 84484; 85025; 85610; 93005; 93010; 96361; 96374; 96375; 99284; 99285; A9270; C9113; J1885; J2060; J7120

== ENCOUNTER 2023-08-26 23:50 | Inpatient (IN) | payer MEDICAID ==
[2023-08-27] MEDS: Diphtheria,Pertussis(Acell),Tetanus Vaccine 0.5 ML Syringe IM ONE (00:41)
[2023-08-27] MEDS: Sodium Chloride 0.9% 1,000 ML IV ONE ×2 (00:41→02:45)
[2023-08-27 00:52] LABS: EOSINOPHILS PERCENT AUTO 1.1 % (1.0-3.0); HEMATOCRIT 35.4 % (40.0-54.0); HEMOGLOBIN 11.8 g/dL (14.0-18.0); LYMPHOCYTES PERCENT AUTO 40.3 % (20.5-50.1); MEAN CORPUSCULAR HEMOGLOBIN 27.8 pg (27.0-34.0); MEAN CORPUSCULAR HGB CONC 33.3 g/dL (33.0-35.0); MEAN CORPUSCULAR VOLUME 83.5 fL (80-100); MONOCYTES PERCENT AUTO 6.8 % (2-8); NEUTROPHILS PERCENT AUTO 48.8 % (42.2-75.2); PLATELET COUNT,PLT 113 10^3/uL (150-450); RED BLOOD CELL COUNT 4.24 10^6/uL (4.6-6.2); WHITE BLOOD CELL COUNT,WBC 4.7 10^3/uL (5.0-10.0)
[2023-08-27 01:10] LABS: A/G RATIO 0.9; ALANINE AMINOTRANSFERASE,ALT 224 U/L (16-63); ALBUMIN 3.8 g/dL (3.4-5.0); ALKALINE PHOSPHATASE 99 U/L (46-116); ANION GAP 16.5 mEq/L (7-13); ASPARTATE AMNIOTRANSFERASE,AST 215 U/L (15-37); BILIRUBIN TOTAL 0.4 mg/dL (0.2-1.0); BLOOD UREA NITROGEN,BUN 7 mg/dL (7-18); CALCIUM 7.5 mg/dL (8.5-10.1); CARBON DIOXIDE,CO2 26 mmol/L (21-32); CHLORIDE,CL 107 mmol/L (98-107); CREATININE 0.87 mg/dL (0.70-1.30); GLUCOSE RANDOM 127 mg/dL (70-99); POTASSIUM,K 3.5 mmol/L (3.5-5.1); PROTEIN TOTAL,TP 8.1 g/dL (6.4-8.2); SODIUM,NA 146 mmol/L (136-145)
[2023-08-27] MEDS: Iopamidol 612 MG/ML 100 ML Bottle IVPUSH ONE (01:10)
[2023-08-27 01:12] LABS: ESTIMATED GFR 115 mL/min (>=60); ETHANOL BLOOD MEDICAL 413 mg/dL (0)
[2023-08-27 01:57] LABS: INR 0.9 (0.9-1.2); PROTHROMBIN TIME 9.7 SEC (9.0-12.0)
[2023-08-27] MEDS: Thiamine 100 MG in Sodium Chloride 0.9% 100 ML IV ONE (02:46)
[2023-08-27] MEDS: Aspirin 81 MG Tab.Chew PO ONE (03:39)
[2023-08-27 04:01] LABS: APPEARANCE,URINE CLEAR (CLEAR); BILIRUBIN,URINE NEGATIVE (NEGATIVE); COLOR,URINE YELLOW (YELLOW); GLUCOSE,URINE NEGATIVE (NEGATIVE); KETONES,URINE NEGATIVE (NEGATIVE); LEUKOCYTE ESTERASE,URINE NEGATIVE (NEGATIVE); NITRITE,URINE NEGATIVE (NEGATIVE); OCCULT BLOOD,URINE SMALL (NEGATIVE); PH,URINE 6.5 (5.0-9.0); PROTEIN,URINE NEGATIVE (NEGATIVE); UROBILINOGEN,URINE 0.2 mg/dL (0.2-1.0)
[2023-08-27 04:05] LABS: AMPHETAMINES,URINE NEGATIVE (NEGATIVE); BARBITURATES,URINE NEGATIVE (NEGATIVE); BENZODIAZEPINE,URINE NEGATIVE (NEGATIVE); MDMA (ECSTASY), URINE NEGATIVE (NEGATIVE); METHADONE,URINE NEGATIVE (NEGATIVE); METHAMPHETAMINES,URINE NEGATIVE (NEGATIVE); OPIATES,URINE NEGATIVE (NEGATIVE); OXYCODONE,URINE NEGATIVE (NEGATIVE); PHENCYCLIDINE,URINE NEGATIVE (NEGATIVE); TCA,URINE NEGATIVE (NEGATIVE)
[2023-08-27 04:09] LABS: BACTERIA,URINE RARE /HPF (0-FEW/HPF); EPITHELIAL CELLS,URINE OCCASIONAL /HPF (NOT SEEN); MUCUS,URINE OCCASIONAL /LPF (NOT SEEN); RBC,URINE 0-5 /HPF (0-5); WBC,URINE 0-5 /HPF (0-5/HPF)
[2023-08-27] MEDS ORDERED: Acetaminophen 325 MG Tab PO PRN (04:58)
[2023-08-27] MEDS ORDERED: Bisacodyl 5 MG Tab PO PRN (04:58)
[2023-08-27] MEDS ORDERED: Albuterol 0.083% 2.5 MG/3 ML Neb Soln NEB PRN (04:58)
[2023-08-27] MEDS ORDERED: Docusate Sodium 100 MG Cap PO PRN (04:58)
[2023-08-27] MEDS ORDERED: LORazepam 0.5 MG Tab PO PRN (05:08)
[2023-08-27] MEDS: Ondansetron 4 MG/2 ML SDV IVPUSH PRN (05:29)
[2023-08-27] MEDS: Pantoprazole 40 MG Tab.CR PO SCH (05:34)
[2023-08-27] MEDS: Ketorolac 30 MG/ML SDV IVPUSH PRN (05:35)
[2023-08-27] MEDS: Sodium Chloride 0.9% 1,000 ML IV SCH (05:41)
[2023-08-27 07:26] VITALS: BP 135/80; PULSE 100
[2023-08-27 07:36] LABS: ANION GAP 17.4 mEq/L (7-13); CALCIUM 7.3 mg/dL (8.5-10.1); CREATININE 0.75 mg/dL (0.70-1.30); EST CRCL DRUG DOSING (CG) 149.45 mL/min; POTASSIUM,K 3.4 mmol/L (3.5-5.1)
[2023-08-27 07:44] LABS: ETHANOL BLOOD MEDICAL 260 mg/dL (0)
[2023-08-27] MEDS ORDERED: Thiamine 100 MG Tab PO SCH (09:00)
[2023-08-27] MEDS ORDERED: Folic Acid 1 MG Tab PO SCH (09:00)
[2023-08-28] MEDS ORDERED: Aspirin 325 MG Tab.EC PO SCH (08:00)
== END 2023-08-27 09:15 | disposition left against medical advice (07) | DRG 894 ==
LOC: DL.ED 23:50 → DL.MS 08-27 04:09 → DL.ED 08-27 04:25
PROVIDERS: ADMIT Internal Medicine; ATTEND Internal Medicine
DX: F10.129 Alcohol abuse with intoxication, unspecified (principal); S06.9XAA Unspecified intracranial injury with loss of consciousness status unknown, initial encounter; I10 Essential (primary) hypertension; F41.9 Anxiety disorder, unspecified; E11.9 Type 2 diabetes mellitus without complications; E86.0 Dehydration; S00.93XA Contusion of unspecified part of head, initial encounter; S00.83XA Contusion of other part of head, initial encounter; S20.229A Contusion of unspecified back wall of thorax, initial encounter; R79.89 Other specified abnormal findings of blood chemistry; Z88.8 Allergy status to other drugs, medicaments and biological substances; Z79.82 Long term (current) use of aspirin; Z79.899 Other long term (current) drug therapy; I25.2 Old myocardial infarction; Z86.16 Personal history of COVID-19; Z98.890 Other specified postprocedural states
CPT/HCPCS: 36415; 70450; 71260; 72125; 74177; 80048; 80053; 80305-QW; 80307; 81001; 82140; 82550; 84484; 85025; 85610; 90471; 90715; 93005; 93010; 96361; 96365; 99285; 99285-25; A9270-GY; J1885; J2405; J3411; J3490; J7030; Q9967

== ENCOUNTER 2023-08-27 23:14 | Observation (INO) | payer MEDICAID ==
[2023-08-27 23:35] LABS: HEMATOCRIT 35.2 % (40.0-54.0); HEMOGLOBIN 11.8 g/dL (14.0-18.0); MEAN CORPUSCULAR HEMOGLOBIN 27.8 pg (27.0-34.0); MEAN CORPUSCULAR HGB CONC 33.5 g/dL (33.0-35.0); PLATELET COUNT,PLT 95 10^3/uL (150-450); RED BLOOD CELL COUNT 4.24 10^6/uL (4.6-6.2)
[2023-08-27 23:37] LABS: APPEARANCE,URINE CLEAR (CLEAR); BILIRUBIN,URINE NEGATIVE (NEGATIVE); COLOR,URINE YELLOW (YELLOW); GLUCOSE,URINE NEGATIVE (NEGATIVE); KETONES,URINE NEGATIVE (NEGATIVE); LEUKOCYTE ESTERASE,URINE NEGATIVE (NEGATIVE); NITRITE,URINE NEGATIVE (NEGATIVE); OCCULT BLOOD,URINE TRACE-LYSED (NEGATIVE); PH,URINE 6.5 (5.0-9.0); PROTEIN,URINE 30 (NEGATIVE); UROBILINOGEN,URINE 0.2 mg/dL (0.2-1.0)
[2023-08-27 23:39] LABS: AMPHETAMINES,URINE NEGATIVE (NEGATIVE); BARBITURATES,URINE NEGATIVE (NEGATIVE); BENZODIAZEPINE,URINE NEGATIVE (NEGATIVE); MDMA (ECSTASY), URINE NEGATIVE (NEGATIVE); METHADONE,URINE NEGATIVE (NEGATIVE); METHAMPHETAMINES,URINE NEGATIVE (NEGATIVE); OPIATES,URINE NEGATIVE (NEGATIVE); OXYCODONE,URINE NEGATIVE (NEGATIVE); PHENCYCLIDINE,URINE NEGATIVE (NEGATIVE); TCA,URINE NEGATIVE (NEGATIVE)
[2023-08-27] MEDS: Sodium Chloride 0.9% 1,000 ML IV ONE (23:40)
[2023-08-27 23:45] LABS: BASOPHILS PERCENT AUTO 2.7 % (0.0-1.0); EOSINOPHILS PERCENT AUTO 0.5 % (1.0-3.0); MONOCYTES PERCENT AUTO 5.8 % (2-8)
[2023-08-27 23:47] LABS: BACTERIA,URINE RARE /HPF (0-FEW/HPF); EPITHELIAL CELLS,URINE OCCASIONAL /HPF (NOT SEEN); RBC,URINE 0-5 /HPF (0-5); WBC,URINE NOT SEEN /HPF (0-5/HPF)
[2023-08-27 23:48] LABS: MUCUS,URINE RARE /LPF (NOT SEEN)
[2023-08-27 23:57] LABS: INR 0.9 (0.9-1.2); PROTHROMBIN TIME 9.3 SEC (9.0-12.0)
[2023-08-28] LABS: BAND PERCENT MAN 1 %; LYMPHOCYTES PERCENT MAN 25 % (20-50); METAMYELOCYTE PERCENT MAN 1; MONOCYTES PERCENT MAN 5 % (2-8); SEG NEUTROPHILS PERCENT MAN 68 % (42-75)
[2023-08-28 00:03] LABS: A/G RATIO 0.9; ALANINE AMINOTRANSFERASE,ALT 222 U/L (16-63); ALBUMIN 3.9 g/dL (3.4-5.0); ALKALINE PHOSPHATASE 106 U/L (46-116); ANION GAP 18.4 mEq/L (7-13); ASPARTATE AMNIOTRANSFERASE,AST 224 U/L (15-37); BILIRUBIN TOTAL 0.5 mg/dL (0.2-1.0); BLOOD UREA NITROGEN,BUN 4 mg/dL (7-18); BUN/CREATININE RATIO 4.5 (No establ ref range); CALCIUM 7.6 mg/dL (8.5-10.1); CARBON DIOXIDE,CO2 25 mmol/L (21-32); CHLORIDE,CL 106 mmol/L (98-107); CREATININE 0.88 mg/dL (0.70-1.30); GLUCOSE RANDOM 131 mg/dL (70-99); LIPASE 144 U/L (16-77); MAGNESIUM 2.2 mg/dL (1.8-2.4); POTASSIUM,K 3.4 mmol/L (3.5-5.1); PROTEIN TOTAL,TP 8.4 g/dL (6.4-8.2); SODIUM,NA 146 mmol/L (136-145)
[2023-08-28 00:09] LABS: ESTIMATED GFR 114 mL/min (>=60)
[2023-08-28 00:10] LABS: ETHANOL BLOOD MEDICAL 483 mg/dL (0)
[2023-08-28] MEDS: Potassium Chloride 10 MEQ Tab.ER PO ONE (00:29)
[2023-08-28] MEDS: Thiamine 100 MG in Sodium Chloride 0.9% 100 ML IV ONE (00:33)
[2023-08-28] MEDS: Sodium Chloride 0.9% 1,000 ML IV ONE (00:35)
[2023-08-28] MEDS: LORazepam 2 MG/ML SDV IVPUSH ONE (02:55)
[2023-08-28] MEDS ORDERED: LORazepam 2 MG/ML SDV IVPUSH PRN (02:55)
[2023-08-28] MEDS: LORazepam 2 MG/ML SDV ONE (03:30)
[2023-08-28] MEDS ORDERED: Acetaminophen 325 MG Tab PO PRN (04:24)
[2023-08-28] MEDS ORDERED: Docusate Sodium 100 MG Cap PO PRN (04:24)
[2023-08-28] MEDS ORDERED: Ondansetron 4 MG/2 ML SDV IVPUSH PRN (04:24)
[2023-08-28] MEDS ORDERED: Bisacodyl 5 MG Tab PO PRN (04:24)
[2023-08-28] MEDS ORDERED: LORazepam 0.5 MG Tab PO PRN (04:30)
[2023-08-28] MEDS: Sodium Chloride 0.9% 1,000 ML IV SCH (04:45)
[2023-08-28 07:42] VITALS: BP 107/81; PULSE 89
[2023-08-28] MEDS: Multivitamin Tab PO SCH (08:55)
[2023-08-28] MEDS: Folic Acid 1 MG Tab PO SCH (08:55)
[2023-08-28] MEDS: Thiamine 100 MG Tab PO SCH (08:55)
[2023-08-28] MEDS: Pantoprazole 40 MG Vial IVPUSH SCH (08:56)
[2023-08-28 09:30] LABS: CREATINE KINASE,CK 1205 U/L (39-308)
[2023-08-28 11:15] LABS: ANION GAP 14.5 mEq/L (7-13); CALCIUM 7.6 mg/dL (8.5-10.1); CREATININE 0.75 mg/dL (0.70-1.30); EST CRCL DRUG DOSING (CG) 122.87 mL/min; POTASSIUM,K 3.5 mmol/L (3.5-5.1)
[2023-08-29] MEDS ORDERED: Enoxaparin 40 MG/0.4 ML Syringe SUBCUT SCH (09:00)
== END 2023-08-28 11:25 | disposition left against medical advice (07) ==
LOC: DL.ED 23:14 → DL.MS 08-28 01:40
PROVIDERS: ADMIT Internal Medicine; ATTEND Internal Medicine
DX: F10.129 Alcohol abuse with intoxication, unspecified (principal); K70.9 Alcoholic liver disease, unspecified; I10 Essential (primary) hypertension; E11.9 Type 2 diabetes mellitus without complications; F41.9 Anxiety disorder, unspecified; Z79.82 Long term (current) use of aspirin; Z79.899 Other long term (current) drug therapy
CPT/HCPCS: 36415; 70450; 71045; 80048; 80053; 80305-QW; 80307; 81001; 82140; 82550; 83690; 83735; 84484; 85025; 85610; 93005; A9270-GY; C9113; J2060; J3411; J3490; J7030

== ENCOUNTER 2023-08-28 19:57 | Emergency (ER) | payer MEDICAID ==
[2023-08-28 20:13] VITALS: BP 140/85; PULSE 110
[2023-08-28] MEDS: levETIRAcetam in NaCl (iso-os) 1,000 MG in Premix Bag 1 BAG IV ONE (20:31)
[2023-08-28] MEDS: Sodium Chloride 0.9% 1,000 ML IV ONE (20:31)
[2023-08-28 20:40] LABS: BASOPHILS PERCENT AUTO 3.1 % (0.0-1.0); HEMATOCRIT 32.6 % (40.0-54.0); HEMOGLOBIN 10.7 g/dL (14.0-18.0); LYMPHOCYTES PERCENT AUTO 29.6 % (20.5-50.1); MEAN CORPUSCULAR HEMOGLOBIN 27.7 pg (27.0-34.0); MEAN CORPUSCULAR HGB CONC 32.8 g/dL (33.0-35.0); MEAN CORPUSCULAR VOLUME 84.5 fL (80-100); MONOCYTES PERCENT AUTO 9.2 % (2-8); NEUTROPHILS PERCENT AUTO 57.1 % (42.2-75.2); PLATELET COUNT,PLT 80 10^3/uL (150-450); RED BLOOD CELL COUNT 3.86 10^6/uL (4.6-6.2); WHITE BLOOD CELL COUNT,WBC 4.2 10^3/uL (5.0-10.0)
[2023-08-28] MEDS: Thiamine 100 MG in Sodium Chloride 0.9% 100 ML IV ONE (20:55)
[2023-08-28 21:02] LABS: APPEARANCE,URINE CLEAR (CLEAR); BENZODIAZEPINE,URINE POSITIVE (NEGATIVE); BILIRUBIN,URINE NEGATIVE (NEGATIVE); COLOR,URINE YELLOW (YELLOW); GLUCOSE,URINE NEGATIVE (NEGATIVE); KETONES,URINE NEGATIVE (NEGATIVE); LEUKOCYTE ESTERASE,URINE NEGATIVE (NEGATIVE); MDMA (ECSTASY), URINE NEGATIVE (NEGATIVE); METHADONE,URINE NEGATIVE (NEGATIVE); METHAMPHETAMINES,URINE NEGATIVE (NEGATIVE); NITRITE,URINE NEGATIVE (NEGATIVE); OCCULT BLOOD,URINE TRACE-INTACT (NEGATIVE); OPIATES,URINE NEGATIVE (NEGATIVE); PROTEIN,URINE NEGATIVE (NEGATIVE); UROBILINOGEN,URINE 0.2 mg/dL (0.2-1.0)
[2023-08-28 21:03] LABS: AMPHETAMINES,URINE NEGATIVE (NEGATIVE); BARBITURATES,URINE NEGATIVE (NEGATIVE); OXYCODONE,URINE NEGATIVE (NEGATIVE); PHENCYCLIDINE,URINE NEGATIVE (NEGATIVE); TCA,URINE NEGATIVE (NEGATIVE)
[2023-08-28 21:38] LABS: A/G RATIO 0.8; ALBUMIN 3.5 g/dL (3.4-5.0); ANION GAP 17.2 mEq/L (7-13); BILIRUBIN TOTAL 0.4 mg/dL (0.2-1.0); BUN/CREATININE RATIO 6.2 (No establ ref range); CALCIUM 7.8 mg/dL (8.5-10.1); CREATININE 1.12 mg/dL (0.70-1.30); EST CRCL DRUG DOSING (CG) 91.18 mL/min; MAGNESIUM 1.9 mg/dL (1.8-2.4); POTASSIUM,K 3.2 mmol/L (3.5-5.1); PROTEIN TOTAL,TP 7.9 g/dL (6.4-8.2)
[2023-08-28 21:49] LABS: RBC,URINE 0-5 /HPF (0-5); WBC,URINE 0-5 /HPF (0-5/HPF)
[2023-08-28 21:50] LABS: BACTERIA,URINE FEW /HPF (0-FEW/HPF); EPITHELIAL CELLS,URINE RARE /HPF (NOT SEEN); MUCUS,URINE FEW /LPF (NOT SEEN)
[2023-08-28 22:04] LABS: INR 0.9 (0.9-1.2); PROTHROMBIN TIME 9.4 SEC (9.0-12.0)
== END 2023-08-28 22:10 | disposition left against medical advice (07) ==
LOC: DL.ED 19:57
DX: K70.9 Alcoholic liver disease, unspecified (principal); E86.0 Dehydration; E87.6 Hypokalemia; R79.89 Other specified abnormal findings of blood chemistry; F10.120 Alcohol abuse with intoxication, uncomplicated; I10 Essential (primary) hypertension; I25.2 Old myocardial infarction; E11.9 Type 2 diabetes mellitus without complications; Z86.16 Personal history of COVID-19; Z88.8 Allergy status to other drugs, medicaments and biological substances; Z79.82 Long term (current) use of aspirin; Z79.899 Other long term (current) drug therapy; Y90.9 Presence of alcohol in blood, level not specified
CPT/HCPCS: 36415; 70450; 71045; 80053; 80305-QW; 80307; 81001; 82140; 82550; 83690; 83735; 84484; 85025; 85610; 93005; 96365; 96367; 99285-25; J1953; J3411; J3490; J7030

== ENCOUNTER 2023-08-29 22:49 | Inpatient (IN) | payer MEDICAID ==
[2023-08-29] MEDS: LORazepam 2 MG/ML SDV IVPUSH ONE (22:55)
[2023-08-29] MEDS: Sodium Chloride 0.9% 1,000 ML IV ONE (22:55)
[2023-08-29] MEDS: Famotidine 20 MG/2 ML SDV IVPUSH ONE (22:56)
[2023-08-29 23:10] LABS: BASOPHILS PERCENT AUTO 1.3 % (0.0-1.0); HEMATOCRIT 33.2 % (40.0-54.0); HEMOGLOBIN 10.9 g/dL (14.0-18.0); MEAN CORPUSCULAR HEMOGLOBIN 27.3 pg (27.0-34.0); MEAN CORPUSCULAR HGB CONC 32.8 g/dL (33.0-35.0); MEAN CORPUSCULAR VOLUME 83.2 fL (80-100); MONOCYTES PERCENT AUTO 9.6 % (2-8); NEUTROPHILS PERCENT AUTO 76.1 % (42.2-75.2); PLATELET COUNT,PLT 77 10^3/uL (150-450); RED BLOOD CELL COUNT 3.99 10^6/uL (4.6-6.2); WHITE BLOOD CELL COUNT,WBC 6.3 10^3/uL (5.0-10.0)
[2023-08-29 23:30] LABS: APPEARANCE,URINE CLEAR (CLEAR); BILIRUBIN,URINE NEGATIVE (NEGATIVE); COLOR,URINE YELLOW (YELLOW); GLUCOSE,URINE NEGATIVE (NEGATIVE); KETONES,URINE 80 (NEGATIVE); LEUKOCYTE ESTERASE,URINE NEGATIVE (NEGATIVE); NITRITE,URINE NEGATIVE (NEGATIVE); OCCULT BLOOD,URINE SMALL (NEGATIVE); PH,URINE 6.5 (5.0-9.0); PROTEIN,URINE 30 (NEGATIVE); UROBILINOGEN,URINE 0.2 mg/dL (0.2-1.0)
[2023-08-29] MEDS: Iopamidol 612 MG/ML 100 ML Bottle IVPUSH ONE (23:34)
[2023-08-29] MEDS: chlordiazePOXIDE 25 MG Cap PO ONE (23:34)
[2023-08-29] MEDS: Aspirin 81 MG Tab.Chew PO ONE (23:34)
[2023-08-29 23:35] LABS: A/G RATIO 0.8; ALANINE AMINOTRANSFERASE,ALT 208 U/L (16-63); ALBUMIN 3.9 g/dL (3.4-5.0); ALKALINE PHOSPHATASE 101 U/L (46-116); ANION GAP 19.1 mEq/L (7-13); ASPARTATE AMNIOTRANSFERASE,AST 220 U/L (15-37); BILIRUBIN TOTAL 1.3 mg/dL (0.2-1.0); BLOOD UREA NITROGEN,BUN 7 mg/dL (7-18); BUN/CREATININE RATIO 9.7 (No establ ref range); CALCIUM 8.8 mg/dL (8.5-10.1); CARBON DIOXIDE,CO2 21 mmol/L (21-32); CHLORIDE,CL 97 mmol/L (98-107); CREATININE 0.72 mg/dL (0.70-1.30); EST CRCL DRUG DOSING (CG) 146.45 mL/min; GLUCOSE RANDOM 88 mg/dL (70-99); LIPASE 78 U/L (16-77); MAGNESIUM 1.3 mg/dL (1.8-2.4); POTASSIUM,K 3.1 mmol/L (3.5-5.1); PROTEIN TOTAL,TP 8.5 g/dL (6.4-8.2); SODIUM,NA 134 mmol/L (136-145)
[2023-08-29 23:35] LABS: AMPHETAMINES,URINE NEGATIVE (NEGATIVE); BARBITURATES,URINE NEGATIVE (NEGATIVE); BENZODIAZEPINE,URINE NEGATIVE (NEGATIVE); MDMA (ECSTASY), URINE NEGATIVE (NEGATIVE); METHADONE,URINE NEGATIVE (NEGATIVE); METHAMPHETAMINES,URINE NEGATIVE (NEGATIVE); OPIATES,URINE NEGATIVE (NEGATIVE); OXYCODONE,URINE NEGATIVE (NEGATIVE); PHENCYCLIDINE,URINE NEGATIVE (NEGATIVE); TCA,URINE NEGATIVE (NEGATIVE)
[2023-08-29 23:36] LABS: ESTIMATED GFR 121 mL/min (>=60); ETHANOL BLOOD MEDICAL < 3 mg/dL (0)
[2023-08-29 23:42] LABS: BACTERIA,URINE RARE /HPF (0-FEW/HPF); EPITHELIAL CELLS,URINE OCCASIONAL /HPF (NOT SEEN); MUCUS,URINE RARE /LPF (NOT SEEN); RBC,URINE 0-5 /HPF (0-5); WBC,URINE NOT SEEN /HPF (0-5/HPF)
[2023-08-30] MEDS: Potassium Chloride 10 MEQ Tab.ER PO ONE (00:49)
[2023-08-30] MEDS: Potassium Chloride 20 MEQ in Premix Bag 1 BAG IV ONE (00:50)
[2023-08-30] MEDS: Sodium Chloride 0.9% 1,000 ML IV ONE (00:50)
[2023-08-30] MEDS: Magnesium Sulfate/Water 4 GM in Premix Bag 1 BAG IV ONE (00:57)
[2023-08-30] MEDS: Sodium Chloride 0.9% 1,000 ML IV SCH (01:20)
[2023-08-30] MEDS: LORazepam 2 MG/ML SDV IVPUSH ONE (01:22)
[2023-08-30] MEDS ORDERED: Acetaminophen 325 MG Tab PO PRN (05:40)
[2023-08-30] MEDS ORDERED: Ondansetron 4 MG/2 ML SDV IVPUSH PRN (05:40)
[2023-08-30] MEDS ORDERED: Docusate Sodium 100 MG Cap PO PRN (05:40)
[2023-08-30] MEDS ORDERED: Take Home: hydrOXYzine HCl 25 MG Tab, 4 Tab Pack PO PRN (05:43)
[2023-08-30] MEDS: Aspirin 81 MG Tab.EC PO SCH (08:42)
[2023-08-30] MEDS: Multivitamin Tab PO SCH (08:42)
[2023-08-30] MEDS: Folic Acid 1 MG Tab PO SCH (08:43)
[2023-08-30] MEDS: Pantoprazole 40 MG Tab.CR PO SCH (08:43)
[2023-08-30] MEDS: Thiamine 100 MG Tab PO SCH (08:43)
[2023-08-30] MEDS: cloNIDine 0.1 MG Tab PO ONE (11:03)
[2023-08-30] MEDS: Non-Formulary Medication 1 Each (Amlodipine Besylate [Amlodipine Besylate] 10 MG Tablet) PO SCH (11:56)
[2023-08-30] MEDS: cloNIDine 0.1 MG Tab PO SCH (13:49)
[2023-08-30] MEDS ORDERED: cloNIDine 0.1 MG Tab PO SCH (21:00)
[2023-08-30] MEDS: chlordiazePOXIDE 10 MG Cap PO SCH (21:12)
[2023-08-30] MEDS: LORazepam 2 MG/ML SDV IVPUSH PRN (21:13)
[2023-08-31 06:32] LABS: EOSINOPHILS PERCENT AUTO 2.1 % (1.0-3.0); HEMOGLOBIN 11.7 g/dL (14.0-18.0); LYMPHOCYTES PERCENT AUTO 20.6 % (20.5-50.1); MEAN CORPUSCULAR HEMOGLOBIN 27.3 pg (27.0-34.0); MEAN CORPUSCULAR HGB CONC 32.5 g/dL (33.0-35.0); MEAN CORPUSCULAR VOLUME 83.9 fL (80-100); MONOCYTES PERCENT AUTO 11.2 % (2-8); NEUTROPHILS PERCENT AUTO 65.1 % (42.2-75.2); PLATELET COUNT,PLT 65 10^3/uL (150-450); RED BLOOD CELL COUNT 4.29 10^6/uL (4.6-6.2); WHITE BLOOD CELL COUNT,WBC 3.8 10^3/uL (5.0-10.0)
[2023-08-31 06:56] LABS: ALBUMIN 3.3 g/dL (3.4-5.0); ANION GAP 13.5 mEq/L (7-13); BILIRUBIN TOTAL 1.1 mg/dL (0.2-1.0); BUN/CREATININE RATIO 11.8 (No establ ref range); CALCIUM 8.5 mg/dL (8.5-10.1); CREATININE 0.76 mg/dL (0.70-1.30); EST CRCL DRUG DOSING (CG) 138.74 mL/min; POTASSIUM,K 3.5 mmol/L (3.5-5.1); PROTEIN TOTAL,TP 7.7 g/dL (6.4-8.2)
[2023-08-31 06:59] LABS: A/G RATIO 0.75
[2023-08-31] MEDS: Enoxaparin 40 MG/0.4 ML Syringe SUBCUT SCH (08:37)
[2023-08-31 09:08] VITALS: BP 121/86; PULSE 87
== END 2023-08-31 09:11 | disposition home or self-care (01) | DRG 896 ==
LOC: DL.ED 22:49 → DL.MS 08-30 00:55
PROVIDERS: ADMIT Internal Medicine; ATTEND Internal Medicine
DX: F10.239 Alcohol dependence with withdrawal, unspecified (principal); K85.20 Alcohol induced acute pancreatitis without necrosis or infection; E87.1 Hypo-osmolality and hyponatremia; H54.7 Unspecified visual loss; I10 Essential (primary) hypertension; F41.9 Anxiety disorder, unspecified; E11.9 Type 2 diabetes mellitus without complications; E87.6 Hypokalemia; E86.0 Dehydration; K70.9 Alcoholic liver disease, unspecified; R07.9 Chest pain, unspecified; E83.42 Hypomagnesemia; R79.89 Other specified abnormal findings of blood chemistry; K21.9 Gastro-esophageal reflux disease without esophagitis; Z88.8 Allergy status to other drugs, medicaments and biological substances; Z79.82 Long term (current) use of aspirin; Z79.899 Other long term (current) drug therapy; I25.2 Old myocardial infarction; Z86.16 Personal history of COVID-19; Z98.890 Other specified postprocedural states; Z87.891 Personal history of nicotine dependence
CPT/HCPCS: 36415; 71045; 74177; 80053; 80305-QW; 80307; 81001; 83690; 83735; 84484; 85025; 93005; 93010; 96361; 96374; 96375; 99284; 99285-25; A9270-GY; J2060; J3475; J3480; J3490; J7030; Q9967

== ENCOUNTER 2023-09-16 03:19 | Emergency (ER) | payer MEDICAID ==
[2023-09-16 02:23] LABS: EOSINOPHILS PERCENT AUTO 0.4 % (1.0-3.0); HEMATOCRIT 38.3 % (40.0-54.0); HEMOGLOBIN 12.4 g/dL (14.0-18.0); LYMPHOCYTES PERCENT AUTO 23.6 % (20.5-50.1); MEAN CORPUSCULAR HEMOGLOBIN 27.5 pg (27.0-34.0); MEAN CORPUSCULAR HGB CONC 32.4 g/dL (33.0-35.0); MEAN CORPUSCULAR VOLUME 84.9 fL (80-100); MONOCYTES PERCENT AUTO 9.3 % (2-8); NEUTROPHILS PERCENT AUTO 64.7 % (42.2-75.2); PLATELET COUNT,PLT 362 10^3/uL (150-450); RED BLOOD CELL COUNT 4.51 10^6/uL (4.6-6.2); WHITE BLOOD CELL COUNT,WBC 8.2 10^3/uL (5.0-10.0)
[2023-09-16 02:45] VITALS: BP 157/106; PULSE 96
[2023-09-16 02:46] LABS: A/G RATIO 0.9; ALANINE AMINOTRANSFERASE,ALT 327 U/L (16-63); ALBUMIN 3.9 g/dL (3.4-5.0); ALKALINE PHOSPHATASE 113 U/L (46-116); ANION GAP 14.7 mEq/L (7-13); ASPARTATE AMNIOTRANSFERASE,AST 156 U/L (15-37); BILIRUBIN TOTAL 0.5 mg/dL (0.2-1.0); BLOOD UREA NITROGEN,BUN 10 mg/dL (7-18); BUN/CREATININE RATIO 12.3 (No establ ref range); CALCIUM 8.6 mg/dL (8.5-10.1); CARBON DIOXIDE,CO2 24 mmol/L (21-32); CHLORIDE,CL 102 mmol/L (98-107); CREATININE 0.81 mg/dL (0.70-1.30); GLUCOSE RANDOM 118 mg/dL (70-99); LIPASE 61 U/L (16-77); POTASSIUM,K 3.7 mmol/L (3.5-5.1); PROTEIN TOTAL,TP 8.2 g/dL (6.4-8.2); SODIUM,NA 137 mmol/L (136-145)
[2023-09-16 02:48] LABS: ESTIMATED GFR 117 mL/min (>=60)
[2023-09-16] MEDS: Sodium Chloride 0.9% 1,000 ML IV ONE (03:03)
[2023-09-16] MEDS: GI Cocktail Oral Solution 30 ML PO ONE (03:03)
[2023-09-16] MEDS: Ondansetron 4 MG/2 ML SDV IVPUSH ONE (03:03)
[2023-09-16 03:24] LABS: AMPHETAMINES,URINE NEGATIVE (NEGATIVE); BARBITURATES,URINE NEGATIVE (NEGATIVE); BENZODIAZEPINE,URINE POSITIVE (NEGATIVE); MDMA (ECSTASY), URINE NEGATIVE (NEGATIVE); METHADONE,URINE NEGATIVE (NEGATIVE); METHAMPHETAMINES,URINE NEGATIVE (NEGATIVE); OPIATES,URINE NEGATIVE (NEGATIVE); OXYCODONE,URINE NEGATIVE (NEGATIVE); PHENCYCLIDINE,URINE NEGATIVE (NEGATIVE); TCA,URINE NEGATIVE (NEGATIVE)
== END 2023-09-16 04:20 | disposition home or self-care (01) ==
LOC: DL.ED 03:19
DX: K21.9 Gastro-esophageal reflux disease without esophagitis (principal); I10 Essential (primary) hypertension; I25.2 Old myocardial infarction; E11.9 Type 2 diabetes mellitus without complications; Z88.8 Allergy status to other drugs, medicaments and biological substances; Z79.899 Other long term (current) drug therapy; Z86.16 Personal history of COVID-19
CPT/HCPCS: 36415; 71045; 80053; 80305; 80307; 83690; 84484; 85025; 93005; 96361; 96374; 99285; A9270; J2405; J7030

== ENCOUNTER 2023-09-22 22:07 | Emergency (ER) | payer MEDICAID ==
[2023-09-22] MEDS ORDERED: Lactated Ringers 1,000 ML IV ONE (23:20)
[2023-09-22] MEDS ORDERED: Sodium Chloride 0.9% 10 ML Syringe FLUSH PRN (23:20)
[2023-09-22] MEDS ORDERED: Morphine 2 MG/ML SYRINGE IVPUSH ONE (23:20)
[2023-09-22] MEDS ORDERED: Iopamidol 612 MG/ML 100 ML Bottle IVPUSH ONE (23:25)
== END 2023-09-22 22:15 | disposition left against medical advice (07) ==
LOC: DL.ED 22:07
DX: Z53.21 Procedure and treatment not carried out due to patient leaving prior to being seen by health care provider (principal)
CPT/HCPCS: 70450; 70486; 71260; 72125; 74177

== ENCOUNTER 2023-09-23 02:10 | Emergency (ER) | payer MEDICAID ==
[2023-09-23] MEDS ORDERED: Sodium Chloride 0.9% 10 ML Syringe FLUSH PRN (02:37)
[2023-09-23 03:01] LABS: BASOPHILS PERCENT AUTO 2.2 % (0.0-1.0); EOSINOPHILS PERCENT AUTO 0.8 % (1.0-3.0); HEMATOCRIT 39.1 % (40.0-54.0); HEMOGLOBIN 12.7 g/dL (14.0-18.0); LYMPHOCYTES PERCENT AUTO 41.2 % (20.5-50.1); MEAN CORPUSCULAR HEMOGLOBIN 27.1 pg (27.0-34.0); MEAN CORPUSCULAR HGB CONC 32.5 g/dL (33.0-35.0); MEAN CORPUSCULAR VOLUME 83.4 fL (80-100); MONOCYTES PERCENT AUTO 7.5 % (2-8); NEUTROPHILS PERCENT AUTO 48.3 % (42.2-75.2); PLATELET COUNT,PLT 192 10^3/uL (150-450); RED BLOOD CELL COUNT 4.69 10^6/uL (4.6-6.2)
[2023-09-23 03:18] LABS: A/G RATIO 0.9; ALANINE AMINOTRANSFERASE,ALT 208 U/L (16-63); ALBUMIN 3.7 g/dL (3.4-5.0); ALKALINE PHOSPHATASE 107 U/L (46-116); ANION GAP 14.3 mEq/L (7-13); ASPARTATE AMNIOTRANSFERASE,AST 120 U/L (15-37); BILIRUBIN TOTAL 0.4 mg/dL (0.2-1.0); BLOOD UREA NITROGEN,BUN 8 mg/dL (7-18); BUN/CREATININE RATIO 9.4 (No establ ref range); CALCIUM 7.5 mg/dL (8.5-10.1); CARBON DIOXIDE,CO2 27 mmol/L (21-32); CHLORIDE,CL 107 mmol/L (98-107); CREATININE 0.85 mg/dL (0.70-1.30); ESTIMATED GFR 115 mL/min (>=60); ETHANOL BLOOD MEDICAL 348 mg/dL (0); GLUCOSE RANDOM 120 mg/dL (70-99); LIPASE 67 U/L (16-77); MAGNESIUM 1.8 mg/dL (1.8-2.4); POTASSIUM,K 3.3 mmol/L (3.5-5.1); PROTEIN TOTAL,TP 7.8 g/dL (6.4-8.2); SODIUM,NA 145 mmol/L (136-145)
[2023-09-23 03:21] LABS: AMPHETAMINES,URINE NEGATIVE (NEGATIVE); BARBITURATES,URINE NEGATIVE (NEGATIVE); BENZODIAZEPINE,URINE POSITIVE (NEGATIVE); MDMA (ECSTASY), URINE NEGATIVE (NEGATIVE); METHADONE,URINE NEGATIVE (NEGATIVE); METHAMPHETAMINES,URINE NEGATIVE (NEGATIVE); OPIATES,URINE NEGATIVE (NEGATIVE); OXYCODONE,URINE NEGATIVE (NEGATIVE); PHENCYCLIDINE,URINE NEGATIVE (NEGATIVE); TCA,URINE NEGATIVE (NEGATIVE)
[2023-09-23 06:37] VITALS: BP 149/108; PULSE 76
== END 2023-09-23 06:28 | disposition home or self-care (01) ==
LOC: DL.ED 02:10
DX: S20.212A Contusion of left front wall of thorax, initial encounter (principal); S30.1XXA Contusion of abdominal wall, initial encounter; F10.929 Alcohol use, unspecified with intoxication, unspecified; M79.642 Pain in left hand; M79.641 Pain in right hand; R74.01 Elevation of levels of liver transaminase levels; I10 Essential (primary) hypertension; I25.2 Old myocardial infarction; E11.9 Type 2 diabetes mellitus without complications; Z86.16 Personal history of COVID-19; Z79.82 Long term (current) use of aspirin; Z79.899 Other long term (current) drug therapy; Z88.8 Allergy status to other drugs, medicaments and biological substances; Y04.2XXA Assault by strike against or bumped into by another person, initial encounter
CPT/HCPCS: 36415; 71045; 73120-LT; 73120-RT; 80053; 80305-QW; 80307; 83690; 83735; 85025; 99284

== ENCOUNTER 2023-09-25 16:12 | Inpatient (IN) | payer MEDICAID ==
[2023-09-25 16:25] LABS: HEMATOCRIT 38.4 % (40.0-54.0); HEMOGLOBIN 12.8 g/dL (14.0-18.0); LYMPHOCYTES PERCENT AUTO 22.4 % (20.5-50.1); MEAN CORPUSCULAR HEMOGLOBIN 27.6 pg (27.0-34.0); MEAN CORPUSCULAR HGB CONC 33.3 g/dL (33.0-35.0); MEAN CORPUSCULAR VOLUME 82.8 fL (80-100); NEUTROPHILS PERCENT AUTO 70.2 % (42.2-75.2); PLATELET COUNT,PLT 130 10^3/uL (150-450); RED BLOOD CELL COUNT 4.64 10^6/uL (4.6-6.2); WHITE BLOOD CELL COUNT,WBC 7.3 10^3/uL (5.0-10.0)
[2023-09-25 16:26] LABS: BASOPHILS PERCENT AUTO 1.8 % (0.0-1.0); EOSINOPHILS PERCENT AUTO 0.1 % (1.0-3.0); MONOCYTES PERCENT AUTO 5.5 % (2-8)
[2023-09-25 16:41] LABS: A/G RATIO 0.9; ALANINE AMINOTRANSFERASE,ALT 202 U/L (16-63); ALBUMIN 4.1 g/dL (3.4-5.0); ALKALINE PHOSPHATASE 114 U/L (46-116); ANION GAP 25.2 mEq/L (7-13); ASPARTATE AMNIOTRANSFERASE,AST 175 U/L (15-37); BILIRUBIN TOTAL 0.8 mg/dL (0.2-1.0); BLOOD UREA NITROGEN,BUN 10 mg/dL (7-18); BUN/CREATININE RATIO 9.3 (No establ ref range); CALCIUM 8.8 mg/dL (8.5-10.1); CARBON DIOXIDE,CO2 16 mmol/L (21-32); CHLORIDE,CL 99 mmol/L (98-107); CREATININE 1.08 mg/dL (0.70-1.30); ETHANOL BLOOD MEDICAL 14 mg/dL (0); GLUCOSE RANDOM 120 mg/dL (70-99); LIPASE 55 U/L (16-77); MAGNESIUM 1.5 mg/dL (1.8-2.4); POTASSIUM,K 3.2 mmol/L (3.5-5.1); PROTEIN TOTAL,TP 8.5 g/dL (6.4-8.2); SODIUM,NA 137 mmol/L (136-145)
[2023-09-25 16:42] LABS: ESTIMATED GFR 91 mL/min (>=60)
[2023-09-25] MEDS: Promethazine 25 MG/ML SDV IM ONE (16:44)
[2023-09-25] MEDS: Thiamine 100 MG in Sodium Chloride 0.9% 100 ML IV ONE (16:44)
[2023-09-25 16:45] LABS: INR 0.9 (0.9-1.2); PROTHROMBIN TIME 9.8 SEC (9.0-12.0)
[2023-09-25] MEDS: Sodium Chloride 0.9% 2,000 ML IV ONE (16:45)
[2023-09-25] MEDS: Famotidine 20 MG/2 ML SDV IVPUSH ONE (16:50)
[2023-09-25] MEDS: Magnesium Sulfate/Water 2 GM in Premix Bag 1 BAG IV ONE (17:04)
[2023-09-25] MEDS: Potassium Chloride 20 MEQ in Premix Bag 1 BAG IV ONE (17:04)
[2023-09-25 17:33] LABS: APPEARANCE,URINE CLEAR (CLEAR); BILIRUBIN,URINE NEGATIVE (NEGATIVE); COLOR,URINE YELLOW (YELLOW); GLUCOSE,URINE NEGATIVE (NEGATIVE); KETONES,URINE 40 (NEGATIVE); LEUKOCYTE ESTERASE,URINE NEGATIVE (NEGATIVE); NITRITE,URINE NEGATIVE (NEGATIVE); OCCULT BLOOD,URINE SMALL (NEGATIVE); PROTEIN,URINE 100 (NEGATIVE); UROBILINOGEN,URINE 0.2 mg/dL (0.2-1.0)
[2023-09-25] MEDS: Aspirin 81 MG Tab.Chew PO ONE (17:35)
[2023-09-25 17:37] LABS: AMPHETAMINES,URINE NEGATIVE (NEGATIVE); BARBITURATES,URINE NEGATIVE (NEGATIVE); BENZODIAZEPINE,URINE POSITIVE (NEGATIVE); MDMA (ECSTASY), URINE NEGATIVE (NEGATIVE); METHADONE,URINE NEGATIVE (NEGATIVE); METHAMPHETAMINES,URINE NEGATIVE (NEGATIVE); OPIATES,URINE NEGATIVE (NEGATIVE); OXYCODONE,URINE NEGATIVE (NEGATIVE); PHENCYCLIDINE,URINE NEGATIVE (NEGATIVE); TCA,URINE NEGATIVE (NEGATIVE)
[2023-09-25] MEDS: LORazepam 2 MG/ML SDV IVPUSH ONE (17:39)
[2023-09-25] MEDS: Potassium Chloride 10 MEQ Tab.ER PO ONE (17:42)
[2023-09-25 17:44] LABS: BACTERIA,URINE FEW /HPF (0-FEW/HPF); EPITHELIAL CELLS,URINE FEW /HPF (NOT SEEN); HYALINE CASTS,URINE FEW; MUCUS,URINE MANY /LPF (NOT SEEN); WBC,URINE 0-5 /HPF (0-5/HPF)
[2023-09-25] MEDS ORDERED: Magnesium Hydroxide 400 MG/5 ML Susp 30 ML Cup PO PRN (18:07)
[2023-09-25] MEDS ORDERED: Ibuprofen 400 MG Tab PO PRN (18:07)
[2023-09-25] MEDS ORDERED: Naloxone 2 MG/2 ML Syringe IVPUSH PRN (18:07)
[2023-09-25] MEDS ORDERED: HYDROmorphone 0.5 MG/0.5 ML Syringe IVPUSH PRN (18:07)
[2023-09-25] MEDS ORDERED: Polyethylene Glycol 3350 Powder 17 GM Packet PO PRN (18:07)
[2023-09-25] MEDS ORDERED: Ondansetron 4 MG/2 ML SDV IVPUSH PRN (18:07)
[2023-09-25] MEDS ORDERED: Sennosides/Docusate Sodium 50-8.6 MG Tab PO PRN (18:07)
[2023-09-25] MEDS ORDERED: oxyCODONE 5 MG Tab PO PRN (18:07)
[2023-09-25] MEDS ORDERED: Albuterol/Ipratropium 3.0-0.5 MG/3 ML Neb Soln NEB PRN (18:07)
[2023-09-25] MEDS ORDERED: Metoprolol Tartrate 5 MG/5 ML SDV IVPUSH PRN (18:12)
[2023-09-25] MEDS ORDERED: GI Cocktail Oral Solution 30 ML PO PRN (18:12)
[2023-09-25] MEDS ORDERED: hydrALAZINE 20 MG/ML SDV IVPUSH PRN (18:12)
[2023-09-25] MEDS ORDERED: Flumazenil 0.1 MG/ML 5 ML MDV IVPUSH PRN (18:17)
[2023-09-25] MEDS ORDERED: Nitroglycerin 0.4 MG Tab.SL SL PRN (18:18)
[2023-09-25] MEDS: Sodium Chloride 0.9% 1,000 ML IV SCH (19:12)
[2023-09-25] MEDS ORDERED: Acetaminophen 325 MG Tab PO PRN (19:15)
[2023-09-25] MEDS: Heparin Sodium/0.45% NaCl 25,000 UNITS/500 ML BAG IV SCH (20:16)
[2023-09-25] MEDS: Heparin Sodium 5,000 Units/ML Vial IVPUSH ONE (20:18)
[2023-09-25] MEDS: Heparin Sodium 5,000 Units/ML Vial ONE (20:20)
[2023-09-25] MEDS: Pantoprazole 40 MG Vial IVPUSH ONE (20:20)
[2023-09-25] MEDS: cloNIDine 0.1 MG Tab PO SCH (21:02)
[2023-09-25] MEDS: chlordiazePOXIDE 25 MG Cap PO SCH (21:03)
[2023-09-25] MEDS: Gabapentin 100 MG Cap PO SCH (21:03)
[2023-09-25] MEDS: Temazepam 15 MG Cap PO PRN (21:03)
[2023-09-25] MEDS: Sucralfate 1 GM Tab PO SCH (21:11)
[2023-09-26] MEDS: Aspirin 81 MG Tab.Chew PO ONE (00:22)
[2023-09-26] MEDS: Heparin Sodium 5,000 Units/ML Vial IVPUSH ONE ×4 (02:24→22:57)
[2023-09-26 06:17] LABS: EOSINOPHILS PERCENT AUTO 1.5 % (1.0-3.0); HEMATOCRIT 36.5 % (40.0-54.0); HEMOGLOBIN 11.9 g/dL (14.0-18.0); LYMPHOCYTES PERCENT AUTO 21.8 % (20.5-50.1); MEAN CORPUSCULAR HEMOGLOBIN 27.2 pg (27.0-34.0); MEAN CORPUSCULAR HGB CONC 32.6 g/dL (33.0-35.0); MEAN CORPUSCULAR VOLUME 83.3 fL (80-100); MONOCYTES PERCENT AUTO 8.7 % (2-8); PLATELET COUNT,PLT 82 10^3/uL (150-450); RED BLOOD CELL COUNT 4.38 10^6/uL (4.6-6.2); WHITE BLOOD CELL COUNT,WBC 5.2 10^3/uL (5.0-10.0)
[2023-09-26 06:56] LABS: ALBUMIN 3.2 g/dL (3.4-5.0); ANION GAP 16.3 mEq/L (7-13); BILIRUBIN TOTAL 1.1 mg/dL (0.2-1.0); BUN/CREATININE RATIO 10.3 (No establ ref range); CALCIUM 8.2 mg/dL (8.5-10.1); CREATININE 0.68 mg/dL (0.70-1.30); EST CRCL DRUG DOSING (CG) 150.18 mL/min; MAGNESIUM 2.1 mg/dL (1.8-2.4); POTASSIUM,K 3.3 mmol/L (3.5-5.1); PROTEIN TOTAL,TP 7.2 g/dL (6.4-8.2)
[2023-09-26 06:57] LABS: HEMOGLOBIN A1C 6.1 % (<5.7)
[2023-09-26 07:01] LABS: A/G RATIO 0.8
[2023-09-26] MEDS: Famotidine 20 MG Tab PO SCH (08:15)
[2023-09-26] MEDS: Aspirin 81 MG Tab.Chew PO SCH (08:17)
[2023-09-26] MEDS: cloNIDine 0.1 MG Tab PO SCH (08:18)
[2023-09-26] MEDS: Multivitamin Tab PO SCH (08:20)
[2023-09-26] MEDS: Folic Acid 1 MG Tab PO SCH (08:20)
[2023-09-26] MEDS: Thiamine 100 MG Tab PO SCH (08:20)
[2023-09-26] MEDS ORDERED: Enoxaparin 40 MG/0.4 ML Syringe SUBCUT SCH (09:00)
[2023-09-26] MEDS: Potassium Chloride 10 MEQ Tab.ER PO ONE (17:11)
[2023-09-26] MEDS: Loperamide 2 MG Cap PO PRN (20:05)
[2023-09-27 06:24] LABS: BASOPHILS PERCENT AUTO 1.4 % (0.0-1.0); HEMATOCRIT 36.8 % (40.0-54.0); LYMPHOCYTES PERCENT AUTO 32.9 % (20.5-50.1); MEAN CORPUSCULAR HEMOGLOBIN 27.6 pg (27.0-34.0); MEAN CORPUSCULAR HGB CONC 32.6 g/dL (33.0-35.0); MEAN CORPUSCULAR VOLUME 84.6 fL (80-100); MONOCYTES PERCENT AUTO 6.1 % (2-8); NEUTROPHILS PERCENT AUTO 57.6 % (42.2-75.2); PLATELET COUNT,PLT 74 10^3/uL (150-450); RED BLOOD CELL COUNT 4.35 10^6/uL (4.6-6.2); WHITE BLOOD CELL COUNT,WBC 3.5 10^3/uL (5.0-10.0)
[2023-09-27 07:10] LABS: ALBUMIN 3.1 g/dL (3.4-5.0); ANION GAP 14.9 mEq/L (7-13); BILIRUBIN TOTAL 0.8 mg/dL (0.2-1.0); BUN/CREATININE RATIO 9.6 (No establ ref range); CALCIUM 8.6 mg/dL (8.5-10.1); CREATININE 0.73 mg/dL (0.70-1.30); EST CRCL DRUG DOSING (CG) 139.89 mL/min; MAGNESIUM 1.9 mg/dL (1.8-2.4); POTASSIUM,K 3.9 mmol/L (3.5-5.1)
[2023-09-27 07:14] LABS: A/G RATIO 0.79
[2023-09-27 07:21] VITALS: BP 108/70; PULSE 76
== END 2023-09-27 10:00 | disposition home or self-care (01) | DRG 897 ==
LOC: DL.ED 16:12 → DL.MS 18:04 → UNDOADMIN 18:06 → DL.MS 18:06
PROVIDERS: ADMIT Internal Medicine; ATTEND Internal Medicine
DX: F10.229 Alcohol dependence with intoxication, unspecified (principal); I24.9 Acute ischemic heart disease, unspecified; M62.82 Rhabdomyolysis; I42.6 Alcoholic cardiomyopathy; F10.239 Alcohol dependence with withdrawal, unspecified; I10 Essential (primary) hypertension; H54.7 Unspecified visual loss; F41.9 Anxiety disorder, unspecified; E86.0 Dehydration; E87.6 Hypokalemia; E83.42 Hypomagnesemia; R79.89 Other specified abnormal findings of blood chemistry; K21.9 Gastro-esophageal reflux disease without esophagitis; K29.20 Alcoholic gastritis without bleeding; K70.9 Alcoholic liver disease, unspecified; R74.01 Elevation of levels of liver transaminase levels; E78.5 Hyperlipidemia, unspecified; E11.65 Type 2 diabetes mellitus with hyperglycemia; Z88.8 Allergy status to other drugs, medicaments and biological substances; Z79.82 Long term (current) use of aspirin; Z79.899 Other long term (current) drug therapy; I25.2 Old myocardial infarction; Z86.16 Personal history of COVID-19; Z98.890 Other specified postprocedural states; Z87.81 Personal history of (healed) traumatic fracture
CPT/HCPCS: 36415; 70450; 71045; 80053; 80061; 80305-QW; 80307; 81001; 82140; 82550; 82947; 83036; 83690; 83735; 84484; 85025; 85610; 85730; 93005; 93880; 96365; 96368; 96372; 96375; 99285-25; A9270-GY; C9113; J1644; J2060; J2550; J3411; J3475; J3480; J3490; J7030

== ENCOUNTER 2023-12-21 23:21 | Emergency (ER) | payer MEDICAID ==
[2023-12-21 23:28] LABS: BASOPHILS PERCENT AUTO 0.6 % (0.0-1.0); EOSINOPHILS PERCENT AUTO 0.4 % (1.0-3.0); HEMATOCRIT 40.8 % (40.0-54.0); LYMPHOCYTES PERCENT AUTO 39.9 % (20.5-50.1); MEAN CORPUSCULAR HEMOGLOBIN 27.9 pg (27.0-34.0); MEAN CORPUSCULAR HGB CONC 34.3 g/dL (33.0-35.0); MEAN CORPUSCULAR VOLUME 81.3 fL (80-100); MONOCYTES PERCENT AUTO 9.1 % (2-8); PLATELET COUNT,PLT 243 10^3/uL (150-450); RED BLOOD CELL COUNT 5.02 10^6/uL (4.6-6.2); WHITE BLOOD CELL COUNT,WBC 8.2 10^3/uL (5.0-10.0)
[2023-12-21] MEDS: Sodium Chloride 0.9% 10 ML Syringe FLUSH PRN (23:30)
[2023-12-21] MEDS: Aspirin 81 MG Tab.Chew PO ONE (23:30)
[2023-12-21 23:50] LABS: A/G RATIO 0.9; ALBUMIN 3.8 g/dL (3.4-5.0); ALKALINE PHOSPHATASE 129 U/L (46-116); ANION GAP 18.1 mEq/L (7-13); BILIRUBIN TOTAL 0.3 mg/dL (0.2-1.0); BLOOD UREA NITROGEN,BUN 14 mg/dL (7-18); BUN/CREATININE RATIO 14.4 (No establ ref range); CALCIUM 7.6 mg/dL (8.5-10.1); CARBON DIOXIDE,CO2 22 mmol/L (21-32); CHLORIDE,CL 110 mmol/L (98-107); CREATININE 0.97 mg/dL (0.70-1.30); POTASSIUM,K 3.1 mmol/L (3.5-5.1); PROTEIN TOTAL,TP 8.2 g/dL (6.4-8.2); SODIUM,NA 147 mmol/L (136-145)
[2023-12-21 23:52] LABS: ESTIMATED GFR 103 mL/min (>=60); ETHANOL BLOOD MEDICAL 371 mg/dL (0)
[2023-12-21 23:54] LABS: GLUCOSE RANDOM 157 mg/dL (70-99)
[2023-12-22] LABS: ALANINE AMINOTRANSFERASE,ALT 235 U/L (16-63)
[2023-12-22] MEDS: Potassium Chloride 10 MEQ Tab.ER PO ONE (00:02)
[2023-12-22 00:10] LABS: ASPARTATE AMNIOTRANSFERASE,AST 84 U/L (15-37)
[2023-12-22 00:30] VITALS: BP 135/93
[2023-12-22 00:37] VITALS: PULSE 95
== END 2023-12-22 00:29 | disposition home or self-care (01) ==
LOC: DL.ED 23:29
DX: R07.9 Chest pain, unspecified (principal); I10 Essential (primary) hypertension; I25.2 Old myocardial infarction; E11.9 Type 2 diabetes mellitus without complications; Z86.16 Personal history of COVID-19; Z79.899 Other long term (current) drug therapy; Z79.82 Long term (current) use of aspirin; Z88.8 Allergy status to other drugs, medicaments and biological substances
CPT/HCPCS: 36415; 71045; 80053; 80307; 84484; 85025; 93005; 99285; A9270; 93010; 99284; J3490

== ENCOUNTER 2023-12-24 22:50 | Emergency (ER) | payer MEDICAID ==
[2023-12-24 23:16] VITALS: BP 135/92; PULSE 118
[2023-12-24] MEDS ORDERED: Sodium Chloride 0.9% 1,000 ML IV ONE (23:17)
[2023-12-24] MEDS ORDERED: Sodium Chloride 0.9% 2,000 ML IV ONE (23:23)
[2023-12-24 23:31] LABS: BASOPHILS PERCENT AUTO 0.5 % (0.0-1.0); HEMATOCRIT 37.8 % (40.0-54.0); HEMOGLOBIN 12.7 g/dL (14.0-18.0); LYMPHOCYTES PERCENT AUTO 12.2 % (20.5-50.1); MEAN CORPUSCULAR HEMOGLOBIN 26.8 pg (27.0-34.0); MEAN CORPUSCULAR HGB CONC 33.6 g/dL (33.0-35.0); MEAN CORPUSCULAR VOLUME 79.7 fL (80-100); MONOCYTES PERCENT AUTO 5.4 % (2-8); NEUTROPHILS PERCENT AUTO 81.9 % (42.2-75.2); PLATELET COUNT,PLT 163 10^3/uL (150-450); RED BLOOD CELL COUNT 4.74 10^6/uL (4.6-6.2); WHITE BLOOD CELL COUNT,WBC 11.4 10^3/uL (5.0-10.0)
[2023-12-24 23:40] LABS: APPEARANCE,URINE CLEAR (CLEAR); BILIRUBIN,URINE NEGATIVE (NEGATIVE); COLOR,URINE YELLOW (YELLOW); GLUCOSE,URINE NEGATIVE (NEGATIVE); KETONES,URINE 15 (NEGATIVE); LEUKOCYTE ESTERASE,URINE NEGATIVE (NEGATIVE); NITRITE,URINE NEGATIVE (NEGATIVE); OCCULT BLOOD,URINE TRACE-INTACT (NEGATIVE); PROTEIN,URINE 30 (NEGATIVE); UROBILINOGEN,URINE 0.2 mg/dL (0.2-1.0)
[2023-12-24 23:43] LABS: AMPHETAMINES,URINE NEGATIVE (NEGATIVE); BARBITURATES,URINE NEGATIVE (NEGATIVE); BENZODIAZEPINE,URINE NEGATIVE (NEGATIVE); MDMA (ECSTASY), URINE NEGATIVE (NEGATIVE); METHADONE,URINE NEGATIVE (NEGATIVE); METHAMPHETAMINES,URINE NEGATIVE (NEGATIVE); OPIATES,URINE NEGATIVE (NEGATIVE); OXYCODONE,URINE NEGATIVE (NEGATIVE); PHENCYCLIDINE,URINE NEGATIVE (NEGATIVE); TCA,URINE NEGATIVE (NEGATIVE)
[2023-12-24 23:56] LABS: LACTIC ACID 2.2 mmol/L (0.4-2.0)
[2023-12-24 23:58] LABS: BACTERIA,URINE MODERATE /HPF (0-FEW/HPF); EPITHELIAL CELLS,URINE FEW /HPF (NOT SEEN); MUCUS,URINE FEW /LPF (NOT SEEN); RBC,URINE 0-5 /HPF (0-5)
[2023-12-24 23:59] LABS: A/G RATIO 0.9; ALBUMIN 3.9 g/dL (3.4-5.0); ANION GAP 16.6 mEq/L (7-13); BILIRUBIN TOTAL 0.7 mg/dL (0.2-1.0); CREATININE 0.92 mg/dL (0.70-1.30); EST CRCL DRUG DOSING (CG) 120.66 mL/min; MAGNESIUM 1.7 mg/dL (1.8-2.4); POTASSIUM,K 3.6 mmol/L (3.5-5.1); PROTEIN TOTAL,TP 8.4 g/dL (6.4-8.2)
== END 2023-12-24 23:30 | disposition left against medical advice (07) ==
LOC: DL.ED 22:50
DX: S00.83XA Contusion of other part of head, initial encounter (principal); F10.929 Alcohol use, unspecified with intoxication, unspecified; A41.9 Sepsis, unspecified organism; I10 Essential (primary) hypertension; E11.9 Type 2 diabetes mellitus without complications; Z86.16 Personal history of COVID-19; Z79.899 Other long term (current) drug therapy; Z79.82 Long term (current) use of aspirin; Z88.8 Allergy status to other drugs, medicaments and biological substances; Y04.8XXA Assault by other bodily force, initial encounter
CPT/HCPCS: 36415; 80053; 80305-QW; 80307; 81001; 83605; 83690; 83735; 84484; 85025; 87040; 87804; 99284; 99285; U0002

== ENCOUNTER 2024-01-19 20:15 | Emergency (ER) | payer MEDICAID ==
[2024-01-19 21:39] LABS: BASOPHILS PERCENT AUTO 0.9 % (0.0-1.0); EOSINOPHILS PERCENT AUTO 0.6 % (1.0-3.0); HEMATOCRIT 37.4 % (40.0-54.0); HEMOGLOBIN 12.4 g/dL (14.0-18.0); LYMPHOCYTES PERCENT AUTO 47.1 % (20.5-50.1); MEAN CORPUSCULAR HEMOGLOBIN 27.1 pg (27.0-34.0); MEAN CORPUSCULAR HGB CONC 33.2 g/dL (33.0-35.0); MEAN CORPUSCULAR VOLUME 81.8 fL (80-100); MONOCYTES PERCENT AUTO 6.9 % (2-8); NEUTROPHILS PERCENT AUTO 44.5 % (42.2-75.2); PLATELET COUNT,PLT 184 10^3/uL (150-450); RED BLOOD CELL COUNT 4.57 10^6/uL (4.6-6.2); WHITE BLOOD CELL COUNT,WBC 6.4 10^3/uL (5.0-10.0)
[2024-01-19] MEDS: MVI, Adult with Vitamin K 10 ML, Folic Acid 1 MG, Thiamine 100 MG in Lactated Ringers 1... IV ONE (21:40)
[2024-01-19] MEDS: Pantoprazole 40 MG Vial IVPUSH ONE (21:40)
[2024-01-19 21:54] LABS: PROTHROMBIN TIME 9.9 SEC (9.0-12.0)
[2024-01-19 21:59] LABS: B-TYPE NATRIURETIC PEPTIDE,BNP 55 pg/ml (0-100)
[2024-01-19 22:04] LABS: A/G RATIO 0.7; ALANINE AMINOTRANSFERASE,ALT 242 U/L (16-63); ALBUMIN 3.6 g/dL (3.4-5.0); ALKALINE PHOSPHATASE 109 U/L (46-116); ANION GAP 13.6 mEq/L (7-13); ASPARTATE AMNIOTRANSFERASE,AST 203 U/L (15-37); BILIRUBIN TOTAL 0.5 mg/dL (0.2-1.0); BLOOD UREA NITROGEN,BUN 8 mg/dL (7-18); BUN/CREATININE RATIO 9.4 (No establ ref range); CALCIUM 8.2 mg/dL (8.5-10.1); CARBON DIOXIDE,CO2 26 mmol/L (21-32); CHLORIDE,CL 105 mmol/L (98-107); CREATINE KINASE,CK 354 U/L (39-308); CREATININE 0.85 mg/dL (0.70-1.30); GLUCOSE RANDOM 131 mg/dL (70-99); LIPASE 53 U/L (16-77); MAGNESIUM 2.1 mg/dL (1.8-2.4); POTASSIUM,K 3.6 mmol/L (3.5-5.1); SODIUM,NA 141 mmol/L (136-145)
[2024-01-19 22:26] LABS: ESTIMATED GFR 115 mL/min (>=60)
[2024-01-19 22:27] LABS: ETHANOL BLOOD MEDICAL 383 mg/dL (0)
[2024-01-19 22:39] LABS: APPEARANCE,URINE CLEAR (CLEAR); BILIRUBIN,URINE NEGATIVE (NEGATIVE); COLOR,URINE YELLOW (YELLOW); GLUCOSE,URINE NEGATIVE (NEGATIVE); KETONES,URINE NEGATIVE (NEGATIVE); LEUKOCYTE ESTERASE,URINE NEGATIVE (NEGATIVE); NITRITE,URINE NEGATIVE (NEGATIVE); OCCULT BLOOD,URINE NEGATIVE (NEGATIVE); PROTEIN,URINE NEGATIVE (NEGATIVE); UROBILINOGEN,URINE 0.2 mg/dL (0.2-1.0)
[2024-01-19 22:44] LABS: AMPHETAMINES,URINE NEGATIVE (NEGATIVE); BARBITURATES,URINE NEGATIVE (NEGATIVE); BENZODIAZEPINE,URINE NEGATIVE (NEGATIVE); MDMA (ECSTASY), URINE NEGATIVE (NEGATIVE); METHADONE,URINE NEGATIVE (NEGATIVE); METHAMPHETAMINES,URINE NEGATIVE (NEGATIVE); OPIATES,URINE NEGATIVE (NEGATIVE); OXYCODONE,URINE NEGATIVE (NEGATIVE); PHENCYCLIDINE,URINE NEGATIVE (NEGATIVE); TCA,URINE NEGATIVE (NEGATIVE)
[2024-01-19 23:40] VITALS: BP 154/106; PULSE 108
[2024-01-20] MEDS: Famotidine 20 MG/2 ML SDV IVPUSH ONE (05:18)
[2024-01-20] MEDS: Ondansetron 4 MG/2 ML SDV IVPUSH ONE (05:19)
== END 2024-01-20 06:37 | disposition home or self-care (01) ==
LOC: DL.ED 20:15
DX: R07.89 Other chest pain (principal); R79.89 Other specified abnormal findings of blood chemistry; E86.0 Dehydration; F10.120 Alcohol abuse with intoxication, uncomplicated; I10 Essential (primary) hypertension; I25.2 Old myocardial infarction; E11.9 Type 2 diabetes mellitus without complications; Z86.16 Personal history of COVID-19; Z79.82 Long term (current) use of aspirin; Z79.899 Other long term (current) drug therapy; Z88.8 Allergy status to other drugs, medicaments and biological substances
CPT/HCPCS: 36415; 71045; 80053; 80305-QW; 80307; 81003; 82550; 83690; 83735; 83880; 84484; 85025; 85610; 93010; 96365; 96375; 99284; 99285-25; J2405; J2470; J3411; J3490; J7120

== ENCOUNTER 2024-01-21 22:58 | Emergency (ER) | payer MEDICAID ==
[2024-01-21 23:06] VITALS: BP 127/71; PULSE 89
[2024-01-21 23:36] LABS: BASOPHILS PERCENT AUTO 1.2 % (0.0-1.0); EOSINOPHILS PERCENT AUTO 1.2 % (1.0-3.0); HEMATOCRIT 33.8 % (40.0-54.0); HEMOGLOBIN 11.1 g/dL (14.0-18.0); LYMPHOCYTES PERCENT AUTO 36.9 % (20.5-50.1); MEAN CORPUSCULAR HEMOGLOBIN 27.4 pg (27.0-34.0); MEAN CORPUSCULAR HGB CONC 32.8 g/dL (33.0-35.0); MEAN CORPUSCULAR VOLUME 83.5 fL (80-100); MONOCYTES PERCENT AUTO 7.6 % (2-8); NEUTROPHILS PERCENT AUTO 53.1 % (42.2-75.2); PLATELET COUNT,PLT 116 10^3/uL (150-450); RED BLOOD CELL COUNT 4.05 10^6/uL (4.6-6.2); WHITE BLOOD CELL COUNT,WBC 5.8 10^3/uL (5.0-10.0)
[2024-01-21] MEDS: Famotidine 20 MG/2 ML SDV IVPUSH ONE (23:36)
[2024-01-21] MEDS: MVI, Adult with Vitamin K 10 ML, Folic Acid 1 MG, Thiamine 100 MG in Lactated Ringers 1... IV ONE (23:36)
[2024-01-21 23:38] LABS: APPEARANCE,URINE CLEAR (CLEAR); BILIRUBIN,URINE NEGATIVE (NEGATIVE); COLOR,URINE YELLOW (YELLOW); GLUCOSE,URINE NEGATIVE (NEGATIVE); KETONES,URINE NEGATIVE (NEGATIVE); LEUKOCYTE ESTERASE,URINE NEGATIVE (NEGATIVE); NITRITE,URINE NEGATIVE (NEGATIVE); OCCULT BLOOD,URINE TRACE-INTACT (NEGATIVE); PROTEIN,URINE NEGATIVE (NEGATIVE); UROBILINOGEN,URINE 0.2 mg/dL (0.2-1.0)
[2024-01-21 23:40] LABS: INR 0.9 (0.9-1.2); PROTHROMBIN TIME 9.6 SEC (9.0-12.0)
[2024-01-21 23:41] LABS: AMPHETAMINES,URINE NEGATIVE (NEGATIVE); BARBITURATES,URINE NEGATIVE (NEGATIVE); BENZODIAZEPINE,URINE NEGATIVE (NEGATIVE); MDMA (ECSTASY), URINE NEGATIVE (NEGATIVE); METHADONE,URINE NEGATIVE (NEGATIVE); METHAMPHETAMINES,URINE NEGATIVE (NEGATIVE); OPIATES,URINE NEGATIVE (NEGATIVE); OXYCODONE,URINE NEGATIVE (NEGATIVE); PHENCYCLIDINE,URINE NEGATIVE (NEGATIVE); TCA,URINE NEGATIVE (NEGATIVE)
[2024-01-21] MEDS: Thiamine 200 MG/2 ML MDV ONE (23:42)
[2024-01-21 23:49] LABS: BACTERIA,URINE FEW /HPF (0-FEW/HPF); EPITHELIAL CELLS,URINE RARE /HPF (NOT SEEN); MUCUS,URINE FEW /LPF (NOT SEEN); WBC,URINE 0-5 /HPF (0-5/HPF)
[2024-01-21 23:52] LABS: A/G RATIO 0.7; ALANINE AMINOTRANSFERASE,ALT 190 U/L (16-63); ALBUMIN 3.4 g/dL (3.4-5.0); ALKALINE PHOSPHATASE 102 U/L (46-116); ANION GAP 11.3 mEq/L (7-13); ASPARTATE AMNIOTRANSFERASE,AST 166 U/L (15-37); BILIRUBIN TOTAL 0.3 mg/dL (0.2-1.0); BLOOD UREA NITROGEN,BUN 10 mg/dL (7-18); BUN/CREATININE RATIO 10.8 (No establ ref range); CALCIUM 7.4 mg/dL (8.5-10.1); CARBON DIOXIDE,CO2 27 mmol/L (21-32); CHLORIDE,CL 106 mmol/L (98-107); CREATINE KINASE,CK 445 U/L (39-308); CREATININE 0.93 mg/dL (0.70-1.30); GLUCOSE RANDOM 153 mg/dL (70-99); LIPASE 79 U/L (16-77); MAGNESIUM 2.1 mg/dL (1.8-2.4); POTASSIUM,K 3.3 mmol/L (3.5-5.1); PROTEIN TOTAL,TP 8.4 g/dL (6.4-8.2); SODIUM,NA 141 mmol/L (136-145)
[2024-01-21 23:53] LABS: ESTIMATED GFR 108 mL/min (>=60)
[2024-01-21 23:54] LABS: ETHANOL BLOOD MEDICAL 411 mg/dL (0)
[2024-01-22] MEDS: Potassium Chloride 10 MEQ Tab.ER PO ONE (01:53)
[2024-01-22] MEDS: Sodium Chloride 0.9% 1,000 ML IV ONE (01:54)
== END 2024-01-22 07:18 | disposition home or self-care (01) ==
LOC: DL.ED 22:58
DX: F10.120 Alcohol abuse with intoxication, uncomplicated (principal); E86.0 Dehydration; E87.6 Hypokalemia; I25.2 Old myocardial infarction; I10 Essential (primary) hypertension; E11.9 Type 2 diabetes mellitus without complications; F17.200 Nicotine dependence, unspecified, uncomplicated; Z88.8 Allergy status to other drugs, medicaments and biological substances; Z79.82 Long term (current) use of aspirin; Z79.899 Other long term (current) drug therapy; Y90.9 Presence of alcohol in blood, level not specified
CPT/HCPCS: 36415; 71045; 80053; 80305-QW; 80307; 81001; 82550; 83690; 83735; 84484; 85025; 85610; 93005; 93010; 96361; 96365; 96375; 99284; 99285-25; A9270-GY; J3411; J3490; J7030; J7120

== ENCOUNTER 2024-01-23 06:10 | Emergency (ER) | payer MEDICAID ==
[2024-01-23 06:19] VITALS: BP 153/116; PULSE 108
[2024-01-23] MEDS: Iopamidol 612 MG/ML 100 ML Bottle IVPUSH ONE (06:20)
[2024-01-23 06:33] LABS: EOSINOPHILS PERCENT AUTO 2.2 % (1.0-3.0); HEMATOCRIT 33.1 % (40.0-54.0); HEMOGLOBIN 10.7 g/dL (14.0-18.0); MEAN CORPUSCULAR HEMOGLOBIN 27.2 pg (27.0-34.0); MEAN CORPUSCULAR HGB CONC 32.3 g/dL (33.0-35.0); MEAN CORPUSCULAR VOLUME 84.2 fL (80-100); MONOCYTES PERCENT AUTO 13.4 % (2-8); NEUTROPHILS PERCENT AUTO 37.4 % (42.2-75.2); PLATELET COUNT,PLT 90 10^3/uL (150-450); RED BLOOD CELL COUNT 3.93 10^6/uL (4.6-6.2); WHITE BLOOD CELL COUNT,WBC 4.1 10^3/uL (5.0-10.0)
[2024-01-23 06:43] LABS: APPEARANCE,URINE CLEAR (CLEAR); BILIRUBIN,URINE NEGATIVE (NEGATIVE); COLOR,URINE YELLOW (YELLOW); GLUCOSE,URINE NEGATIVE (NEGATIVE); KETONES,URINE NEGATIVE (NEGATIVE); LEUKOCYTE ESTERASE,URINE NEGATIVE (NEGATIVE); NITRITE,URINE NEGATIVE (NEGATIVE); OCCULT BLOOD,URINE NEGATIVE (NEGATIVE); PROTEIN,URINE NEGATIVE (NEGATIVE); UROBILINOGEN,URINE 0.2 mg/dL (0.2-1.0)
[2024-01-23 06:51] LABS: A/G RATIO 0.67; ALANINE AMINOTRANSFERASE,ALT 197 U/L (16-63); ALBUMIN 3.2 g/dL (3.4-5.0); ALKALINE PHOSPHATASE 98 U/L (46-116); ANION GAP 12.3 mEq/L (7-13); ASPARTATE AMNIOTRANSFERASE,AST 206 U/L (15-37); BILIRUBIN TOTAL 0.4 mg/dL (0.2-1.0); BLOOD UREA NITROGEN,BUN 7 mg/dL (7-18); BUN/CREATININE RATIO 9.9 (No establ ref range); CALCIUM 7.8 mg/dL (8.5-10.1); CARBON DIOXIDE,CO2 27 mmol/L (21-32); CHLORIDE,CL 109 mmol/L (98-107); CREATINE KINASE,CK 409 U/L (39-308); CREATININE 0.71 mg/dL (0.70-1.30); ESTIMATED GFR 121 mL/min (>=60); ETHANOL BLOOD MEDICAL 235 mg/dL (0); GLUCOSE RANDOM 128 mg/dL (70-99); LIPASE 64 U/L (16-77); POTASSIUM,K 3.3 mmol/L (3.5-5.1); SODIUM,NA 145 mmol/L (136-145)
[2024-01-23] MEDS: Pantoprazole 40 MG Vial IVPUSH ONE (06:51)
[2024-01-23] MEDS: Sodium Chloride 0.9% 1,000 ML IV ONE (06:51)
[2024-01-23] MEDS: Ondansetron 4 MG/2 ML SDV IVPUSH ONE (06:51)
[2024-01-23 06:54] LABS: LACTIC ACID 0.8 mmol/L (0.4-2.0)
[2024-01-23 06:58] LABS: INR 0.9 (0.9-1.2); PROTHROMBIN TIME 9.6 SEC (9.0-12.0)
== END 2024-01-23 07:53 | disposition home or self-care (01) ==
LOC: DL.ED 06:10
DX: R10.13 Epigastric pain (principal); R11.2 Nausea with vomiting, unspecified; E86.0 Dehydration; K70.9 Alcoholic liver disease, unspecified; I10 Essential (primary) hypertension; I25.2 Old myocardial infarction; E11.9 Type 2 diabetes mellitus without complications; Z79.82 Long term (current) use of aspirin; Z79.899 Other long term (current) drug therapy; Z88.8 Allergy status to other drugs, medicaments and biological substances
CPT/HCPCS: 36415; 71045; 74177; 80053; 80307; 81003; 82550; 83605; 83690; 83735; 85025; 85610; 86850; 86900; 86901; 87635; 87804; 93005; 96361; 96374; 96375; 99285; J2405; J2470; J7030; Q9967; 93010; 99284; U0002

== ENCOUNTER 2024-01-29 02:54 | Emergency (ER) | payer MEDICAID ==
[2024-01-29 03:24] LABS: BASOPHILS PERCENT AUTO 1.6 % (0.0-1.0); EOSINOPHILS PERCENT AUTO 1.4 % (1.0-3.0); HEMATOCRIT 31.9 % (40.0-54.0); HEMOGLOBIN 10.4 g/dL (14.0-18.0); MEAN CORPUSCULAR HGB CONC 32.6 g/dL (33.0-35.0); MEAN CORPUSCULAR VOLUME 82.9 fL (80-100); MONOCYTES PERCENT AUTO 9.2 % (2-8); NEUTROPHILS PERCENT AUTO 34.8 % (42.2-75.2); PLATELET COUNT,PLT 71 10^3/uL (150-450); RED BLOOD CELL COUNT 3.85 10^6/uL (4.6-6.2); WHITE BLOOD CELL COUNT,WBC 4.9 10^3/uL (5.0-10.0)
[2024-01-29 03:48] LABS: A/G RATIO 0.7; ALANINE AMINOTRANSFERASE,ALT 226 U/L (16-63); ALBUMIN 3.4 g/dL (3.4-5.0); ALKALINE PHOSPHATASE 92 U/L (46-116); ANION GAP 16.3 mEq/L (7-13); ASPARTATE AMNIOTRANSFERASE,AST 287 U/L (15-37); BILIRUBIN TOTAL 0.8 mg/dL (0.2-1.0); BLOOD UREA NITROGEN,BUN 6 mg/dL (7-18); BUN/CREATININE RATIO 7.4 (No establ ref range); CALCIUM 7.8 mg/dL (8.5-10.1); CARBON DIOXIDE,CO2 25 mmol/L (21-32); CHLORIDE,CL 102 mmol/L (98-107); CREATININE 0.81 mg/dL (0.70-1.30); ESTIMATED GFR 116 mL/min (>=60); ETHANOL BLOOD MEDICAL 332 mg/dL (0); GLUCOSE RANDOM 100 mg/dL (70-99); POTASSIUM,K 3.3 mmol/L (3.5-5.1); PROTEIN TOTAL,TP 8.3 g/dL (6.4-8.2); SODIUM,NA 140 mmol/L (136-145)
[2024-01-29 03:55] VITALS: BP 133/80; PULSE 98
[2024-01-29] MEDS: Potassium Chloride 10 MEQ Tab.ER PO ONE (03:57)
[2024-01-29 04:02] LABS: AMPHETAMINES,URINE NEGATIVE (NEGATIVE); BARBITURATES,URINE NEGATIVE (NEGATIVE); BENZODIAZEPINE,URINE NEGATIVE (NEGATIVE); MDMA (ECSTASY), URINE NEGATIVE (NEGATIVE); METHADONE,URINE NEGATIVE (NEGATIVE); METHAMPHETAMINES,URINE NEGATIVE (NEGATIVE); OPIATES,URINE NEGATIVE (NEGATIVE); OXYCODONE,URINE NEGATIVE (NEGATIVE); PHENCYCLIDINE,URINE NEGATIVE (NEGATIVE); TCA,URINE NEGATIVE (NEGATIVE)
== END 2024-01-29 04:41 | disposition home or self-care (01) ==
LOC: DL.ED 02:54
DX: F10.120 Alcohol abuse with intoxication, uncomplicated (principal); E87.6 Hypokalemia; D69.6 Thrombocytopenia, unspecified; J06.9 Acute upper respiratory infection, unspecified; J01.01 Acute recurrent maxillary sinusitis; I10 Essential (primary) hypertension; I25.2 Old myocardial infarction; E11.9 Type 2 diabetes mellitus without complications; Z79.82 Long term (current) use of aspirin; Z79.899 Other long term (current) drug therapy; Z88.8 Allergy status to other drugs, medicaments and biological substances
CPT/HCPCS: 36415; 71045; 80053; 80305; 80307; 83735; 85025; 87081; 87430; 87635; 87804; 99284; A9270; U0002

== ENCOUNTER 2024-02-02 01:33 | Emergency (ER) | payer MEDICAID ==
[2024-02-02] MEDS ORDERED: Sodium Chloride 0.9% 10 ML Syringe FLUSH PRN (02:26)
[2024-02-02] MEDS ORDERED: Furosemide 100 MG/10 ML SDV IVPUSH ONE (02:54)
[2024-02-02 03:07] LABS: BASOPHILS PERCENT AUTO 2.5 % (0.0-1.0); EOSINOPHILS PERCENT AUTO 0.6 % (1.0-3.0); HEMATOCRIT 32.8 % (40.0-54.0); HEMOGLOBIN 10.5 g/dL (14.0-18.0); LYMPHOCYTES PERCENT AUTO 53.5 % (20.5-50.1); MEAN CORPUSCULAR HEMOGLOBIN 26.9 pg (27.0-34.0); MEAN CORPUSCULAR VOLUME 83.9 fL (80-100); MONOCYTES PERCENT AUTO 12.3 % (2-8); NEUTROPHILS PERCENT AUTO 31.1 % (42.2-75.2); PLATELET COUNT,PLT 94 10^3/uL (150-450); RED BLOOD CELL COUNT 3.91 10^6/uL (4.6-6.2); WHITE BLOOD CELL COUNT,WBC 3.3 10^3/uL (5.0-10.0)
[2024-02-02 03:20] VITALS: BP 143/91; PULSE 96
[2024-02-02 03:37] LABS: PROTHROMBIN TIME 10.5 SEC (9.0-12.0); PTT,PARTIAL THROMBOPLSTIN TIME 24.3 SEC (22.0-34.0)
[2024-02-02 03:56] LABS: A/G RATIO 0.8; ALBUMIN 3.7 g/dL (3.4-5.0); ANION GAP 17.4 mEq/L (7-13); BILIRUBIN TOTAL 0.8 mg/dL (0.2-1.0); BUN/CREATININE RATIO 7.5 (No establ ref range); CALCIUM 7.7 mg/dL (8.5-10.1); CREATININE 0.8 mg/dL (0.70-1.30); EST CRCL DRUG DOSING (CG) 93.52 mL/min; MAGNESIUM 2.1 mg/dL (1.8-2.4); POTASSIUM,K 3.4 mmol/L (3.5-5.1); PROTEIN TOTAL,TP 8.5 g/dL (6.4-8.2)
[2024-02-02 04:32] LABS: AMPHETAMINES,URINE NEGATIVE (NEGATIVE); BARBITURATES,URINE NEGATIVE (NEGATIVE); BENZODIAZEPINE,URINE NEGATIVE (NEGATIVE); MDMA (ECSTASY), URINE NEGATIVE (NEGATIVE); METHADONE,URINE NEGATIVE (NEGATIVE); METHAMPHETAMINES,URINE NEGATIVE (NEGATIVE); OPIATES,URINE NEGATIVE (NEGATIVE); OXYCODONE,URINE NEGATIVE (NEGATIVE); PHENCYCLIDINE,URINE NEGATIVE (NEGATIVE); TCA,URINE NEGATIVE (NEGATIVE)
[2024-02-02 04:34] LABS: APPEARANCE,URINE CLEAR (CLEAR); BILIRUBIN,URINE NEGATIVE (NEGATIVE); COLOR,URINE DARK YELLOW (YELLOW); GLUCOSE,URINE NEGATIVE (NEGATIVE); KETONES,URINE TRACE (NEGATIVE); LEUKOCYTE ESTERASE,URINE NEGATIVE (NEGATIVE); NITRITE,URINE NEGATIVE (NEGATIVE); OCCULT BLOOD,URINE SMALL (NEGATIVE); PH,URINE 6.5 (5.0-9.0); PROTEIN,URINE >=300 (NEGATIVE)
[2024-02-02] MEDS: Potassium Chloride 10 MEQ Tab.ER PO ONE (04:49)
[2024-02-02 05:04] LABS: BACTERIA,URINE FEW /HPF (0-FEW/HPF); EPITHELIAL CELLS,URINE FEW /HPF (NOT SEEN); FINE GRANULAR CASTS,URINE FEW /LPF (NOT SEEN); MUCUS,URINE MODERATE /LPF (NOT SEEN); WBC,URINE 0-5 /HPF (0-5/HPF)
== END 2024-02-02 06:33 | disposition home or self-care (01) ==
LOC: DL.ED 01:33
DX: F10.929 Alcohol use, unspecified with intoxication, unspecified (principal); E87.6 Hypokalemia; R74.01 Elevation of levels of liver transaminase levels; I21.9 Acute myocardial infarction, unspecified; R79.89 Other specified abnormal findings of blood chemistry; I10 Essential (primary) hypertension; E11.9 Type 2 diabetes mellitus without complications; Z79.82 Long term (current) use of aspirin; Z79.899 Other long term (current) drug therapy; Z88.8 Allergy status to other drugs, medicaments and biological substances
CPT/HCPCS: 36415; 80053; 80305; 80307; 81001; 82550; 83690; 83735; 84484; 85025; 85610; 85730; 93005; 99285; A9270

== ENCOUNTER 2024-02-03 00:01 | Emergency (ER) | payer MEDICAID ==
[2024-02-03] MEDS ORDERED: Sodium Chloride 0.9% 10 ML Syringe FLUSH PRN (00:15)
[2024-02-03 00:23] LABS: BASOPHILS PERCENT AUTO 1.4 % (0.0-1.0); EOSINOPHILS PERCENT AUTO 0.6 % (1.0-3.0); HEMATOCRIT 32.6 % (40.0-54.0); HEMOGLOBIN 10.7 g/dL (14.0-18.0); LYMPHOCYTES PERCENT AUTO 51.3 % (20.5-50.1); MEAN CORPUSCULAR HEMOGLOBIN 27.3 pg (27.0-34.0); MEAN CORPUSCULAR HGB CONC 32.8 g/dL (33.0-35.0); MEAN CORPUSCULAR VOLUME 83.2 fL (80-100); MONOCYTES PERCENT AUTO 14.5 % (2-8); NEUTROPHILS PERCENT AUTO 32.2 % (42.2-75.2); PLATELET COUNT,PLT 94 10^3/uL (150-450); RED BLOOD CELL COUNT 3.92 10^6/uL (4.6-6.2); WHITE BLOOD CELL COUNT,WBC 3.6 10^3/uL (5.0-10.0)
[2024-02-03 00:25] VITALS: BP 121/76; PULSE 109
[2024-02-03 00:53] LABS: APPEARANCE,URINE CLEAR (CLEAR); BILIRUBIN,URINE NEGATIVE (NEGATIVE); COLOR,URINE YELLOW (YELLOW); GLUCOSE,URINE NEGATIVE (NEGATIVE); KETONES,URINE NEGATIVE (NEGATIVE); LEUKOCYTE ESTERASE,URINE NEGATIVE (NEGATIVE); NITRITE,URINE NEGATIVE (NEGATIVE); OCCULT BLOOD,URINE TRACE-INTACT (NEGATIVE); PROTEIN,URINE 30 (NEGATIVE); UROBILINOGEN,URINE 0.2 mg/dL (0.2-1.0)
[2024-02-03 00:55] LABS: AMPHETAMINES,URINE NEGATIVE (NEGATIVE); BARBITURATES,URINE NEGATIVE (NEGATIVE); BENZODIAZEPINE,URINE NEGATIVE (NEGATIVE); MDMA (ECSTASY), URINE NEGATIVE (NEGATIVE); METHADONE,URINE NEGATIVE (NEGATIVE); METHAMPHETAMINES,URINE NEGATIVE (NEGATIVE); OPIATES,URINE NEGATIVE (NEGATIVE); OXYCODONE,URINE NEGATIVE (NEGATIVE); PHENCYCLIDINE,URINE NEGATIVE (NEGATIVE); TCA,URINE NEGATIVE (NEGATIVE)
[2024-02-03 00:56] LABS: A/G RATIO 0.8; ALBUMIN 3.9 g/dL (3.4-5.0); ANION GAP 14.2 mEq/L (7-13); BILIRUBIN TOTAL 0.9 mg/dL (0.2-1.0); BUN/CREATININE RATIO 7.8 (No establ ref range); CALCIUM 8.4 mg/dL (8.5-10.1); CREATININE 0.77 mg/dL (0.70-1.30); EST CRCL DRUG DOSING (CG) 135.62 mL/min; MAGNESIUM 1.8 mg/dL (1.8-2.4); POTASSIUM,K 3.2 mmol/L (3.5-5.1); PROTEIN TOTAL,TP 8.9 g/dL (6.4-8.2)
[2024-02-03] MEDS: MVI, Adult with Vitamin K 10 ML, Folic Acid 1 MG, Thiamine 100 MG in Lactated Ringers 1... IV ONE (01:11)
[2024-02-03] MEDS: Potassium Chloride 10 MEQ Tab.ER PO ONE (01:13)
[2024-02-03 01:14] LABS: WBC,URINE 0-5 /HPF (0-5/HPF)
[2024-02-03 01:15] LABS: BACTERIA,URINE FEW /HPF (0-FEW/HPF); EPITHELIAL CELLS,URINE RARE /HPF (NOT SEEN); MUCUS,URINE FEW /LPF (NOT SEEN)
== END 2024-02-03 04:50 | disposition home or self-care (01) ==
LOC: DL.ED 00:01
DX: K70.9 Alcoholic liver disease, unspecified (principal); F10.120 Alcohol abuse with intoxication, uncomplicated; R79.89 Other specified abnormal findings of blood chemistry; D64.9 Anemia, unspecified; E87.6 Hypokalemia; E86.0 Dehydration; I10 Essential (primary) hypertension; I25.2 Old myocardial infarction; E11.9 Type 2 diabetes mellitus without complications; Z79.82 Long term (current) use of aspirin; Z79.899 Other long term (current) drug therapy; Z88.8 Allergy status to other drugs, medicaments and biological substances
CPT/HCPCS: 36415; 80053; 80305; 80307; 81001; 83735; 85025; 93005; 96365; 99285; A9270; J3411; J7120; 93010; J3490

== ENCOUNTER 2024-02-03 15:30 | Emergency (ER) | payer MEDICAID ==
[2024-02-03 14:27] VITALS: BP 144/79; PULSE 105
[2024-02-03 15:26] LABS: BASOPHILS PERCENT AUTO 1.1 % (0.0-1.0); EOSINOPHILS PERCENT AUTO 0.1 % (1.0-3.0); HEMATOCRIT 33.6 % (40.0-54.0); HEMOGLOBIN 10.9 g/dL (14.0-18.0); LYMPHOCYTES PERCENT AUTO 6.6 % (20.5-50.1); MEAN CORPUSCULAR HEMOGLOBIN 26.8 pg (27.0-34.0); MEAN CORPUSCULAR HGB CONC 32.4 g/dL (33.0-35.0); MEAN CORPUSCULAR VOLUME 82.6 fL (80-100); MONOCYTES PERCENT AUTO 7.5 % (2-8); NEUTROPHILS PERCENT AUTO 84.7 % (42.2-75.2); PLATELET COUNT,PLT 103 10^3/uL (150-450); RED BLOOD CELL COUNT 4.07 10^6/uL (4.6-6.2); WHITE BLOOD CELL COUNT,WBC 7.3 10^3/uL (5.0-10.0)
[2024-02-03] MEDS ORDERED: Sodium Chloride 0.9% 10 ML Syringe FLUSH PRN (15:45)
[2024-02-03 15:54] LABS: PROTHROMBIN TIME 10.4 SEC (9.0-12.0)
[2024-02-03 15:55] LABS: A/G RATIO 0.8; ALANINE AMINOTRANSFERASE,ALT 239 U/L (16-63); ALBUMIN 4.3 g/dL (3.4-5.0); ALKALINE PHOSPHATASE 109 U/L (46-116); ANION GAP 17.4 mEq/L (7-13); ASPARTATE AMNIOTRANSFERASE,AST 264 U/L (15-37); BILIRUBIN TOTAL 1.8 mg/dL (0.2-1.0); BLOOD UREA NITROGEN,BUN 7 mg/dL (7-18); BUN/CREATININE RATIO 7.6 (No establ ref range); CALCIUM 9.1 mg/dL (8.5-10.1); CARBON DIOXIDE,CO2 23 mmol/L (21-32); CHLORIDE,CL 94 mmol/L (98-107); CREATININE 0.92 mg/dL (0.70-1.30); EST CRCL DRUG DOSING (CG) 113.51 mL/min; GLUCOSE RANDOM 106 mg/dL (70-99); LIPASE 92 U/L (16-77); MAGNESIUM 1.5 mg/dL (1.8-2.4); POTASSIUM,K 3.4 mmol/L (3.5-5.1); PROTEIN TOTAL,TP 9.4 g/dL (6.4-8.2); SODIUM,NA 131 mmol/L (136-145)
[2024-02-03 15:56] LABS: ESTIMATED GFR 110 mL/min (>=60)
[2024-02-03 15:57] LABS: ETHANOL BLOOD MEDICAL < 3 mg/dL (0)
[2024-02-03 16:19] LABS: B-TYPE NATRIURETIC PEPTIDE,BNP 46 pg/ml (0-100)
[2024-02-03] MEDS: Ondansetron 4 MG/2 ML SDV IVPUSH ONE (16:33)
[2024-02-03] MEDS: MVI, Adult with Vitamin K 10 ML, Folic Acid 1 MG, Thiamine 100 MG in Lactated Ringers 1... IV ONE (16:33)
== END 2024-02-03 18:25 | disposition home or self-care (01) ==
LOC: DL.ED 15:30
DX: F10.10 Alcohol abuse, uncomplicated (principal); F41.9 Anxiety disorder, unspecified; I10 Essential (primary) hypertension; E11.9 Type 2 diabetes mellitus without complications; Z79.899 Other long term (current) drug therapy; Z79.82 Long term (current) use of aspirin; Z88.8 Allergy status to other drugs, medicaments and biological substances
CPT/HCPCS: 36415; 80053; 80307; 83690; 83735; 83880; 84484; 85025; 85610; 93010; 96365; 96375; 99283; 99285; J2405; J3411; J7120; J3490

== ENCOUNTER 2024-05-09 23:08 | Emergency (ER) | payer MEDICAID ==
[2024-05-09] MEDS: GI Cocktail Oral Solution 30 ML PO ONE (23:58)
[2024-05-09] MEDS: GI Cocktail Oral Solution 30 ML ONE (23:58)
[2024-05-10 00:12] LABS: BASOPHILS PERCENT AUTO 1.1 % (0.0-1.0); EOSINOPHILS PERCENT AUTO 0.2 % (1.0-3.0); HEMATOCRIT 40.2 % (40.0-54.0); HEMOGLOBIN 13.2 g/dL (14.0-18.0); LYMPHOCYTES PERCENT AUTO 54.7 % (20.5-50.1); MEAN CORPUSCULAR HEMOGLOBIN 25.5 pg (27.0-34.0); MEAN CORPUSCULAR HGB CONC 32.8 g/dL (33.0-35.0); MEAN CORPUSCULAR VOLUME 77.8 fL (80-100); MONOCYTES PERCENT AUTO 7.6 % (2-8); NEUTROPHILS PERCENT AUTO 36.4 % (42.2-75.2); PLATELET COUNT,PLT 214 10^3/uL (150-450); RED BLOOD CELL COUNT 5.17 10^6/uL (4.6-6.2); WHITE BLOOD CELL COUNT,WBC 6.5 10^3/uL (5.0-10.0)
[2024-05-10 00:36] LABS: A/G RATIO 0.8; ALANINE AMINOTRANSFERASE,ALT 216 U/L (16-63); ALBUMIN 3.8 g/dL (3.4-5.0); ALKALINE PHOSPHATASE 119 U/L (46-116); ANION GAP 16.4 mEq/L (7-13); ASPARTATE AMNIOTRANSFERASE,AST 156 U/L (15-37); BILIRUBIN TOTAL 0.4 mg/dL (0.2-1.0); BLOOD UREA NITROGEN,BUN 9 mg/dL (7-18); CARBON DIOXIDE,CO2 26 mmol/L (21-32); CHLORIDE,CL 108 mmol/L (98-107); GLUCOSE RANDOM 122 mg/dL (70-99); LIPASE 47 U/L (16-77); POTASSIUM,K 3.4 mmol/L (3.5-5.1); PROTEIN TOTAL,TP 8.4 g/dL (6.4-8.2); SODIUM,NA 147 mmol/L (136-145)
[2024-05-10 00:38] LABS: ESTIMATED GFR 113 mL/min (>=60); ETHANOL BLOOD MEDICAL 378 mg/dL (0)
[2024-05-10 01:18] LABS: AMPHETAMINES,URINE NEGATIVE (NEGATIVE); BARBITURATES,URINE NEGATIVE (NEGATIVE); BENZODIAZEPINE,URINE NEGATIVE (NEGATIVE); MDMA (ECSTASY), URINE NEGATIVE (NEGATIVE); METHADONE,URINE NEGATIVE (NEGATIVE); METHAMPHETAMINES,URINE NEGATIVE (NEGATIVE); OPIATES,URINE NEGATIVE (NEGATIVE); OXYCODONE,URINE NEGATIVE (NEGATIVE); PHENCYCLIDINE,URINE NEGATIVE (NEGATIVE); TCA,URINE NEGATIVE (NEGATIVE)
[2024-05-10 02:16] VITALS: BP 149/84; PULSE 64
== END 2024-05-10 04:18 | disposition home or self-care (01) ==
LOC: DL.ED 23:08
DX: R07.89 Other chest pain (principal); F10.129 Alcohol abuse with intoxication, unspecified; I10 Essential (primary) hypertension; E11.9 Type 2 diabetes mellitus without complications; Z88.8 Allergy status to other drugs, medicaments and biological substances; Z79.82 Long term (current) use of aspirin; Z79.899 Other long term (current) drug therapy
CPT/HCPCS: 36415; 71046; 80053; 80305; 80307; 83690; 84484; 85025; 93005; 99285; A9270

== ENCOUNTER 2024-05-11 01:45 | Emergency (ER) | payer MEDICAID ==
[2024-05-11] MEDS: Acetaminophen 325 MG Tab PO ONE (02:20)
[2024-05-11] MEDS: Ondansetron 4 MG Tab.DIS PO ONE (02:21)
[2024-05-11 02:30] VITALS: PULSE 102
[2024-05-11 03:41] VITALS: BP 150/82
== END 2024-05-11 03:35 | disposition home or self-care (01) ==
LOC: DL.ED 01:45
DX: M94.0 Chondrocostal junction syndrome [Tietze] (principal); F10.120 Alcohol abuse with intoxication, uncomplicated; I10 Essential (primary) hypertension; I25.2 Old myocardial infarction; E11.9 Type 2 diabetes mellitus without complications; Z88.8 Allergy status to other drugs, medicaments and biological substances; Z79.82 Long term (current) use of aspirin; Z79.899 Other long term (current) drug therapy; Y90.6 Blood alcohol level of 120-199 mg/100 ml
CPT/HCPCS: 36415; 80307; 93005; 99285; A9270

== ENCOUNTER 2024-06-04 16:56 | Emergency (ER) | payer MEDICAID ==
[2024-06-04 17:03] VITALS: BP 155/69; PULSE 115
== END 2024-06-04 17:30 | disposition home or self-care (01) ==
LOC: DL.ED 16:56
DX: J18.9 Pneumonia, unspecified organism (principal); I10 Essential (primary) hypertension; I25.2 Old myocardial infarction; E11.9 Type 2 diabetes mellitus without complications; Z88.8 Allergy status to other drugs, medicaments and biological substances; Z79.82 Long term (current) use of aspirin; Z79.899 Other long term (current) drug therapy
CPT/HCPCS: 99284

== ENCOUNTER 2024-06-17 22:38 | Emergency (ER) | payer MEDICAID ==
[2024-06-17 22:46] VITALS: BP 143/95; PULSE 118
[2024-06-17 23:06] LABS: BASOPHILS PERCENT AUTO 1.7 % (0.0-1.0); EOSINOPHILS PERCENT AUTO 0.8 % (1.0-3.0); HEMATOCRIT 35.7 % (40.0-54.0); HEMOGLOBIN 11.4 g/dL (14.0-18.0); LYMPHOCYTES PERCENT AUTO 29.7 % (20.5-50.1); MEAN CORPUSCULAR HEMOGLOBIN 26.3 pg (27.0-34.0); MEAN CORPUSCULAR HGB CONC 31.9 g/dL (33.0-35.0); MEAN CORPUSCULAR VOLUME 82.3 fL (80-100); MONOCYTES PERCENT AUTO 13.5 % (2-8); NEUTROPHILS PERCENT AUTO 54.3 % (42.2-75.2); PLATELET COUNT,PLT 209 10^3/uL (150-450); RED BLOOD CELL COUNT 4.34 10^6/uL (4.6-6.2); WHITE BLOOD CELL COUNT,WBC 6.4 10^3/uL (5.0-10.0)
[2024-06-17] MEDS: Lactated Ringers 1,000 ML IV ONE (23:09)
[2024-06-17 23:25] LABS: APPEARANCE,URINE CLEAR (CLEAR); BILIRUBIN,URINE NEGATIVE (NEGATIVE); COLOR,URINE YELLOW (YELLOW); GLUCOSE,URINE NEGATIVE (NEGATIVE); KETONES,URINE NEGATIVE (NEGATIVE); LEUKOCYTE ESTERASE,URINE NEGATIVE (NEGATIVE); NITRITE,URINE NEGATIVE (NEGATIVE); OCCULT BLOOD,URINE NEGATIVE (NEGATIVE); PROTEIN,URINE 30 (NEGATIVE); UROBILINOGEN,URINE 0.2 mg/dL (0.2-1.0)
[2024-06-17 23:27] LABS: INR 0.9 (0.9-1.2); PROTHROMBIN TIME 9.9 SEC (9.0-12.0)
[2024-06-17 23:29] LABS: A/G RATIO 0.8; ALBUMIN 3.7 g/dL (3.4-5.0); ANION GAP 15.2 mEq/L (7-13); BILIRUBIN TOTAL 0.7 mg/dL (0.2-1.0); CALCIUM 7.9 mg/dL (8.5-10.1); CREATININE 0.86 mg/dL (0.70-1.30); EST CRCL DRUG DOSING (CG) 121.43 mL/min; MAGNESIUM 2.1 mg/dL (1.8-2.4); POTASSIUM,K 3.2 mmol/L (3.5-5.1); PROTEIN TOTAL,TP 8.2 g/dL (6.4-8.2)
[2024-06-17 23:30] LABS: AMPHETAMINES,URINE NEGATIVE (NEGATIVE); BARBITURATES,URINE NEGATIVE (NEGATIVE); BENZODIAZEPINE,URINE NEGATIVE (NEGATIVE); MDMA (ECSTASY), URINE NEGATIVE (NEGATIVE); METHADONE,URINE NEGATIVE (NEGATIVE); METHAMPHETAMINES,URINE NEGATIVE (NEGATIVE); OPIATES,URINE NEGATIVE (NEGATIVE); OXYCODONE,URINE NEGATIVE (NEGATIVE); PHENCYCLIDINE,URINE NEGATIVE (NEGATIVE); TCA,URINE NEGATIVE (NEGATIVE)
[2024-06-17 23:49] LABS: AMORPHOUS SEDIMENT,URINE FEW /HPF (NOT SEEN); BACTERIA,URINE FEW /HPF (0-FEW/HPF); EPITHELIAL CELLS,URINE FEW /HPF (NOT SEEN); MUCUS,URINE FEW /LPF (NOT SEEN); RBC,URINE 0-5 /HPF (0-5)
[2024-06-17] MEDS: Potassium Chloride 10 MEQ Tab.ER PO ONE (23:49)
[2024-06-17] MEDS: Aspirin 81 MG Tab.Chew PO ONE (23:49)
[2024-06-17] MEDS: Potassium Chloride 10 MEQ in Premix Bag 1 BAG IV ONE (23:50)
[2024-06-18] MEDS: methylPREDNISolone Sodium Succinate 125 MG/2 ML SDV IVPUSH ONE (00:27)
[2024-06-18] MEDS: MVI, Adult with Vitamin K 10 ML, Folic Acid 1 MG, Thiamine 100 MG in Lactated Ringers 1... IV ONE (00:56)
== END 2024-06-18 02:02 | disposition home or self-care (01) ==
LOC: DL.ED 22:38
DX: J20.8 Acute bronchitis due to other specified organisms (principal); E86.0 Dehydration; E87.6 Hypokalemia; D64.9 Anemia, unspecified; R79.89 Other specified abnormal findings of blood chemistry; F10.920 Alcohol use, unspecified with intoxication, uncomplicated; I10 Essential (primary) hypertension; E11.9 Type 2 diabetes mellitus without complications; F17.210 Nicotine dependence, cigarettes, uncomplicated; Z88.8 Allergy status to other drugs, medicaments and biological substances; Z79.82 Long term (current) use of aspirin; Z79.899 Other long term (current) drug therapy
CPT/HCPCS: 36415; 71045; 80053; 80305; 80307; 81001; 83690; 83735; 84484; 85025; 85610; 87428; 93005; 93010; 96361; 96365; 96367; 96375; 99284; A9270; J2919; J3411; J3480; J7120; J3490

== ENCOUNTER 2024-07-14 01:06 | Emergency (ER) | payer MEDICAID ==
[2024-07-14 01:28] VITALS: PULSE 110
[2024-07-14 01:36] LABS: BASOPHILS PERCENT AUTO 1.6 % (0.0-1.0); EOSINOPHILS PERCENT AUTO 1.6 % (1.0-3.0); HEMATOCRIT 36.1 % (40.0-54.0); HEMOGLOBIN 11.8 g/dL (14.0-18.0); LYMPHOCYTES PERCENT AUTO 56.5 % (20.5-50.1); MEAN CORPUSCULAR HEMOGLOBIN 26.9 pg (27.0-34.0); MEAN CORPUSCULAR HGB CONC 32.7 g/dL (33.0-35.0); MEAN CORPUSCULAR VOLUME 82.2 fL (80-100); MONOCYTES PERCENT AUTO 10.1 % (2-8); NEUTROPHILS PERCENT AUTO 30.2 % (42.2-75.2); PLATELET COUNT,PLT 160 10^3/uL (150-450); RED BLOOD CELL COUNT 4.39 10^6/uL (4.6-6.2)
[2024-07-14 01:58] LABS: A/G RATIO 0.83; ALBUMIN 3.3 g/dL (3.4-5.0); ANION GAP 14.9 mEq/L (7-13); BILIRUBIN TOTAL 0.3 mg/dL (0.2-1.0); BUN/CREATININE RATIO 6.6 (No establ ref range); CALCIUM 7.6 mg/dL (8.5-10.1); CREATININE 0.91 mg/dL (0.70-1.30); EST CRCL DRUG DOSING (CG) 114.76 mL/min; POTASSIUM,K 2.9 mmol/L (3.5-5.1); PROTEIN TOTAL,TP 7.3 g/dL (6.4-8.2)
[2024-07-14 02:14] LABS: AMPHETAMINES,URINE NEGATIVE (NEGATIVE); BARBITURATES,URINE NEGATIVE (NEGATIVE); BENZODIAZEPINE,URINE NEGATIVE (NEGATIVE); MDMA (ECSTASY), URINE NEGATIVE (NEGATIVE); METHADONE,URINE NEGATIVE (NEGATIVE); METHAMPHETAMINES,URINE NEGATIVE (NEGATIVE); OPIATES,URINE NEGATIVE (NEGATIVE); OXYCODONE,URINE NEGATIVE (NEGATIVE); PHENCYCLIDINE,URINE NEGATIVE (NEGATIVE); TCA,URINE NEGATIVE (NEGATIVE)
[2024-07-14] MEDS: Aspirin 81 MG Tab.EC PO ONE (02:52)
[2024-07-14] MEDS: amLODIPine 5 MG Tab PO ONE (02:52)
[2024-07-14 03:00] VITALS: BP 128/71
[2024-07-14] MEDS: Take Home: Potassium Chloride 10 MEQ Tab, 10 Tab Pack PO ONE (03:43)
[2024-07-14] MEDS: Potassium Chloride 10 MEQ Tab.ER PO ONE (03:44)
== END 2024-07-14 03:55 | disposition home or self-care (01) ==
LOC: DL.ED 01:06
DX: S29.011A Strain of muscle and tendon of front wall of thorax, initial encounter (principal); F10.120 Alcohol abuse with intoxication, uncomplicated; E87.6 Hypokalemia; I25.2 Old myocardial infarction; I10 Essential (primary) hypertension; E11.9 Type 2 diabetes mellitus without complications; Z88.8 Allergy status to other drugs, medicaments and biological substances; Z79.899 Other long term (current) drug therapy; Z79.82 Long term (current) use of aspirin; Z91.148 Patient's other noncompliance with medication regimen for other reason; X58.XXXA Exposure to other specified factors, initial encounter
CPT/HCPCS: 36415; 80053; 80305; 80307; 84484; 85025; 93005; 93010; 99284; 99285; A9270

== ENCOUNTER 2024-07-17 20:57 | Emergency (ER) | payer MEDICAID ==
[2024-07-17 21:19] VITALS: BP 143/81; PULSE 105
[2024-07-17] MEDS: Ketorolac 30 MG/ML SDV IM ONE (21:25)
[2024-07-17 21:29] LABS: BASOPHILS PERCENT AUTO 2.9 % (0.0-1.0); EOSINOPHILS PERCENT AUTO 0.9 % (1.0-3.0); HEMATOCRIT 38.8 % (40.0-54.0); HEMOGLOBIN 12.7 g/dL (14.0-18.0); MEAN CORPUSCULAR HEMOGLOBIN 26.5 pg (27.0-34.0); MEAN CORPUSCULAR HGB CONC 32.7 g/dL (33.0-35.0); MEAN CORPUSCULAR VOLUME 80.8 fL (80-100); MONOCYTES PERCENT AUTO 7.1 % (2-8); NEUTROPHILS PERCENT AUTO 39.1 % (42.2-75.2); PLATELET COUNT,PLT 139 10^3/uL (150-450); WHITE BLOOD CELL COUNT,WBC 5.5 10^3/uL (5.0-10.0)
[2024-07-17 21:54] LABS: A/G RATIO 0.8; ALANINE AMINOTRANSFERASE,ALT 349 U/L (16-63); ALBUMIN 3.8 g/dL (3.4-5.0); ALKALINE PHOSPHATASE 119 U/L (46-116); ANION GAP 15.7 mEq/L (7-13); ASPARTATE AMNIOTRANSFERASE,AST 356 U/L (15-37); BILIRUBIN TOTAL 0.4 mg/dL (0.2-1.0); BLOOD UREA NITROGEN,BUN 6 mg/dL (7-18); BUN/CREATININE RATIO 7.4 (No establ ref range); CALCIUM 8.2 mg/dL (8.5-10.1); CARBON DIOXIDE,CO2 27 mmol/L (21-32); CHLORIDE,CL 107 mmol/L (98-107); CREATININE 0.81 mg/dL (0.70-1.30); GLUCOSE RANDOM 131 mg/dL (70-99); POTASSIUM,K 3.7 mmol/L (3.5-5.1); PROTEIN TOTAL,TP 8.4 g/dL (6.4-8.2); SODIUM,NA 146 mmol/L (136-145)
[2024-07-17 21:57] LABS: ESTIMATED GFR 116 mL/min (>=60)
== END 2024-07-17 21:41 | disposition home or self-care (01) ==
LOC: DL.ED 20:57
DX: R07.89 Other chest pain (principal); I10 Essential (primary) hypertension; I25.2 Old myocardial infarction; E11.9 Type 2 diabetes mellitus without complications; Z88.8 Allergy status to other drugs, medicaments and biological substances; Z79.899 Other long term (current) drug therapy; Z79.82 Long term (current) use of aspirin
CPT/HCPCS: 36415; 80053; 84484; 85025; 93005; 96372; 99285; J1885

== ENCOUNTER 2024-07-20 01:13 | Emergency (ER) | payer MEDICAID ==
[2024-07-20] MEDS: Ibuprofen 600 MG Tab PO ONE (01:37)
[2024-07-20 01:54] VITALS: BP 155/90; PULSE 127
== END 2024-07-20 02:27 | disposition home or self-care (01) ==
LOC: DL.ED 01:13
DX: R07.9 Chest pain, unspecified (principal); F10.10 Alcohol abuse, uncomplicated; I10 Essential (primary) hypertension; I25.2 Old myocardial infarction; E11.9 Type 2 diabetes mellitus without complications; Z88.8 Allergy status to other drugs, medicaments and biological substances; Z79.899 Other long term (current) drug therapy; Z79.82 Long term (current) use of aspirin
CPT/HCPCS: 36415; 84484; 99285; A9270; 93010; 99284

== ENCOUNTER 2024-07-23 02:10 | Emergency (ER) | payer MEDICAID ==
[2024-07-23] MEDS ORDERED: Sodium Chloride 0.9% 10 ML Syringe FLUSH PRN (02:14)
[2024-07-23 02:34] LABS: BASOPHILS PERCENT AUTO 2.3 % (0.0-1.0); EOSINOPHILS PERCENT AUTO 0.8 % (1.0-3.0); HEMATOCRIT 36.2 % (40.0-54.0); LYMPHOCYTES PERCENT AUTO 37.6 % (20.5-50.1); MEAN CORPUSCULAR HEMOGLOBIN 26.3 pg (27.0-34.0); MEAN CORPUSCULAR HGB CONC 33.1 g/dL (33.0-35.0); MEAN CORPUSCULAR VOLUME 79.4 fL (80-100); MONOCYTES PERCENT AUTO 9.8 % (2-8); NEUTROPHILS PERCENT AUTO 49.5 % (42.2-75.2); PLATELET COUNT,PLT 77 10^3/uL (150-450); RED BLOOD CELL COUNT 4.56 10^6/uL (4.6-6.2); WHITE BLOOD CELL COUNT,WBC 5.2 10^3/uL (5.0-10.0)
[2024-07-23 02:49] LABS: AMPHETAMINES,URINE NEGATIVE (NEGATIVE); BARBITURATES,URINE NEGATIVE (NEGATIVE); BENZODIAZEPINE,URINE NEGATIVE (NEGATIVE); MDMA (ECSTASY), URINE NEGATIVE (NEGATIVE); METHADONE,URINE NEGATIVE (NEGATIVE); METHAMPHETAMINES,URINE POSITIVE (NEGATIVE); OPIATES,URINE NEGATIVE (NEGATIVE); OXYCODONE,URINE NEGATIVE (NEGATIVE); PHENCYCLIDINE,URINE NEGATIVE (NEGATIVE); TCA,URINE NEGATIVE (NEGATIVE)
[2024-07-23 02:51] LABS: A/G RATIO 0.9; BILIRUBIN TOTAL 0.6 mg/dL (0.2-1.0); BUN/CREATININE RATIO 5.1 (No establ ref range); CALCIUM 8.6 mg/dL (8.5-10.1); CREATININE 0.98 mg/dL (0.70-1.30); EST CRCL DRUG DOSING (CG) 106.56 mL/min; MAGNESIUM 2.2 mg/dL (1.8-2.4); PROTEIN TOTAL,TP 8.6 g/dL (6.4-8.2)
[2024-07-23 02:56] LABS: ANION GAP 16.8 mEq/L (7-13); POTASSIUM,K 2.8 mmol/L (3.5-5.1)
[2024-07-23 02:57] LABS: PROTHROMBIN TIME 10.1 SEC (9.0-12.0)
[2024-07-23] MEDS: Ketorolac 30 MG/ML SDV IVPUSH ONE (03:04)
[2024-07-23] MEDS: Thiamine 200 MG/2 ML MDV IVPUSH ONE (03:04)
[2024-07-23] MEDS: Potassium Chloride 10 MEQ Tab.ER PO ONE ×2 (03:11→07:26)
[2024-07-23] MEDS: NS + KCl 20mEq/L 1,000 ML IV SCH (03:11)
[2024-07-23 05:10] LABS: HEMATOCRIT 33.5 % (40.0-54.0); HEMOGLOBIN 10.9 g/dL (14.0-18.0)
[2024-07-23 06:40] VITALS: BP 128/84; PULSE 97
[2024-07-23 07:09] LABS: HEMATOCRIT 34.2 % (40.0-54.0)
== END 2024-07-23 07:35 | disposition home or self-care (01) ==
LOC: DL.ED 02:10
DX: F10.10 Alcohol abuse, uncomplicated (principal); F15.90 Other stimulant use, unspecified, uncomplicated; I10 Essential (primary) hypertension; E11.9 Type 2 diabetes mellitus without complications; Z79.82 Long term (current) use of aspirin; Z79.899 Other long term (current) drug therapy; R07.9 Chest pain, unspecified; E87.6 Hypokalemia
CPT/HCPCS: 36415; 80053; 80305-QW; 80307; 83690; 83735; 83880; 84132; 84484; 85014; 85018; 85025; 85610; 85730; 93005; 96365; 96366; 96375; 99285-25; A9270-GY; J1885; J3411; J3480

== ENCOUNTER 2024-07-26 00:46 | Emergency (ER) | payer MEDICAID ==
[2024-07-26 01:14] VITALS: BP 149/86; PULSE 106
[2024-07-26 01:41] LABS: HEMATOCRIT 36.2 % (40.0-54.0); HEMOGLOBIN 12.2 g/dL (14.0-18.0); LYMPHOCYTES PERCENT AUTO 41.5 % (20.5-50.1); MEAN CORPUSCULAR HEMOGLOBIN 27.1 pg (27.0-34.0); MEAN CORPUSCULAR HGB CONC 33.7 g/dL (33.0-35.0); MEAN CORPUSCULAR VOLUME 80.3 fL (80-100); MONOCYTES PERCENT AUTO 10.7 % (2-8); NEUTROPHILS PERCENT AUTO 43.8 % (42.2-75.2); PLATELET COUNT,PLT 65 10^3/uL (150-450); RED BLOOD CELL COUNT 4.51 10^6/uL (4.6-6.2)
[2024-07-26 02:02] LABS: A/G RATIO 0.8; ALBUMIN 3.7 g/dL (3.4-5.0); ANION GAP 19.5 mEq/L (7-13); BILIRUBIN TOTAL 1.1 mg/dL (0.2-1.0); BUN/CREATININE RATIO 9.1 (No establ ref range); CALCIUM 8.3 mg/dL (8.5-10.1); CREATININE 0.77 mg/dL (0.70-1.30); EST CRCL DRUG DOSING (CG) 135.62 mL/min; POTASSIUM,K 3.5 mmol/L (3.5-5.1); PROTEIN TOTAL,TP 8.2 g/dL (6.4-8.2)
== END 2024-07-26 02:41 | disposition home or self-care (01) ==
LOC: DL.ED 00:46
DX: R07.89 Other chest pain (principal); F10.120 Alcohol abuse with intoxication, uncomplicated; D64.9 Anemia, unspecified; D69.6 Thrombocytopenia, unspecified; R74.01 Elevation of levels of liver transaminase levels; R79.89 Other specified abnormal findings of blood chemistry; I25.2 Old myocardial infarction; I10 Essential (primary) hypertension; E11.9 Type 2 diabetes mellitus without complications; Z88.8 Allergy status to other drugs, medicaments and biological substances; Z79.82 Long term (current) use of aspirin; Z79.899 Other long term (current) drug therapy; Y90.8 Blood alcohol level of 240 mg/100 ml or more
CPT/HCPCS: 36415; 80053; 80307; 84484; 85025; 93005; 99285

== ENCOUNTER 2024-07-26 04:42 | Emergency (ER) | payer MEDICAID ==
[2024-07-26 05:03] VITALS: BP 140/75; PULSE 111
== END 2024-07-26 05:37 | disposition home or self-care (01) ==
LOC: DL.ED 04:42
DX: F10.920 Alcohol use, unspecified with intoxication, uncomplicated (principal); R07.89 Other chest pain; I10 Essential (primary) hypertension; E11.9 Type 2 diabetes mellitus without complications; Z88.8 Allergy status to other drugs, medicaments and biological substances; Z79.899 Other long term (current) drug therapy; Z79.82 Long term (current) use of aspirin; Z60.9 Problem related to social environment, unspecified; Z91.148 Patient's other noncompliance with medication regimen for other reason; Z59.82 Transportation insecurity
CPT/HCPCS: 99284

== ENCOUNTER 2024-09-09 19:20 | Emergency (ER) | payer MEDICAID ==
[2024-09-09] MEDS: Sodium Chloride 0.9% 1,000 ML IV SCH ×2 (18:00→18:40)
[2024-09-09] MEDS: Rocuronium 100 MG/10 ML MDV IVPUSH ONE (18:10)
[2024-09-09] MEDS: Ketamine 500 mg/10 ML MDV IV ONE (18:10)
[2024-09-09] MEDS: fentaNYL 500 MCG in Sodium Chloride 0.9% 50 ML IV SCH (18:32)
[2024-09-09] MEDS: Midazolam 50 MG in Sodium Chloride 0.9% 40 ML IV SCH (18:32)
[2024-09-09 18:35] LABS: BASOPHILS PERCENT AUTO 1.1 % (0.0-1.0); EOSINOPHILS PERCENT AUTO 0.9 % (1.0-3.0); HEMATOCRIT 38.8 % (40.0-54.0); HEMOGLOBIN 12.4 g/dL (14.0-18.0); LYMPHOCYTES PERCENT AUTO 44.7 % (20.5-50.1); MEAN CORPUSCULAR HEMOGLOBIN 25.6 pg (27.0-34.0); NEUTROPHILS PERCENT AUTO 45.3 % (42.2-75.2); PLATELET COUNT,PLT 289 10^3/uL (150-450); PROTHROMBIN TIME 10.2 SEC (9.0-12.0); RED BLOOD CELL COUNT 4.85 10^6/uL (4.6-6.2); WHITE BLOOD CELL COUNT,WBC 8.9 10^3/uL (5.0-10.0)
[2024-09-09 18:46] LABS: A/G RATIO 0.8; ALANINE AMINOTRANSFERASE,ALT 262 U/L (16-63); ALBUMIN 3.8 g/dL (3.4-5.0); ALKALINE PHOSPHATASE 113 U/L (46-116); ANION GAP 14.9 mEq/L (7-13); ASPARTATE AMNIOTRANSFERASE,AST 319 U/L (15-37); BILIRUBIN TOTAL 0.6 mg/dL (0.2-1.0); BLOOD UREA NITROGEN,BUN 7 mg/dL (7-18); BUN/CREATININE RATIO 9.5 (No establ ref range); CALCIUM 8.2 mg/dL (8.5-10.1); CARBON DIOXIDE,CO2 23 mmol/L (21-32); CHLORIDE,CL 107 mmol/L (98-107); CREATININE 0.74 mg/dL (0.70-1.30); ESTIMATED GFR 120 mL/min (>=60); GLUCOSE RANDOM 137 mg/dL (70-99); POTASSIUM,K 2.9 mmol/L (3.5-5.1); PROTEIN TOTAL,TP 8.6 g/dL (6.4-8.2); SODIUM,NA 142 mmol/L (136-145)
[2024-09-09 18:48] LABS: ETHANOL BLOOD MEDICAL 501 mg/dL (0)
[2024-09-09 18:59] LABS: AMPHETAMINES,URINE NEGATIVE (NEGATIVE); BARBITURATES,URINE NEGATIVE (NEGATIVE); BENZODIAZEPINE,URINE NEGATIVE (NEGATIVE); MDMA (ECSTASY), URINE NEGATIVE (NEGATIVE); METHADONE,URINE NEGATIVE (NEGATIVE); METHAMPHETAMINES,URINE NEGATIVE (NEGATIVE); OPIATES,URINE NEGATIVE (NEGATIVE); OXYCODONE,URINE NEGATIVE (NEGATIVE); PHENCYCLIDINE,URINE NEGATIVE (NEGATIVE); TCA,URINE NEGATIVE (NEGATIVE)
[~2024-09-09 19:20] MED LIST changes: -LORazepam 2 MG/ML SDV IVPUSH ONE; +Midazolam 50 MG in Sodium Chloride 0.9% 40 ML IV SCH; -Ondansetron 4 MG/2 ML SDV IVPUSH ONE; -Sodium Chloride 0.9% 1,000 ML IV ONE; +fentaNYL 500 MCG in Sodium Chloride 0.9% 50 ML IV SCH
[2024-09-09] MEDS: Midazolam 5 MG/ML 10 ML MDV IV ONE (19:34)
[2024-09-09] MEDS: Propofol 200 MG/20 ML SDV IVPUSH ONE (20:05)
== END 2024-09-09 20:39 | disposition other institution (70) ==
LOC: DL.ED 19:20
DX: S00.81XA Abrasion of other part of head, initial encounter (principal); S20.319A Abrasion of unspecified front wall of thorax, initial encounter; S40.819A Abrasion of unspecified upper arm, initial encounter; I10 Essential (primary) hypertension; E11.9 Type 2 diabetes mellitus without complications; Z79.899 Other long term (current) drug therapy; Z79.82 Long term (current) use of aspirin; Z88.8 Allergy status to other drugs, medicaments and biological substances; X50.9XXA Other and unspecified overexertion or strenuous movements or postures, initial encounter
CPT/HCPCS: 31500; 36415; 51702; 70450; 71045; 71260; 72125; 72170; 74177; 80053; 80305; 80307; 85025; 85610; 96365; 96366; 96368; 96375; 99282; 99291; 99292; G0390; J2250; J2704; J3010; J3490; J7030

== ENCOUNTER 2024-09-20 05:37 | Emergency (ER) | payer MEDICAID ==
[2024-09-20] MEDS ORDERED: Sodium Chloride 0.9% 10 ML Syringe FLUSH PRN (06:08)
[2024-09-20] MEDS: Aspirin 81 MG Tab.Chew PO ONE (06:22)
[2024-09-20 06:32] LABS: BASOPHILS PERCENT AUTO 1.9 % (0.0-1.0); EOSINOPHILS PERCENT AUTO 0.5 % (1.0-3.0); HEMATOCRIT 36.8 % (40.0-54.0); HEMOGLOBIN 11.9 g/dL (14.0-18.0); LYMPHOCYTES PERCENT AUTO 23.3 % (20.5-50.1); MEAN CORPUSCULAR HEMOGLOBIN 25.7 pg (27.0-34.0); MEAN CORPUSCULAR HGB CONC 32.3 g/dL (33.0-35.0); MEAN CORPUSCULAR VOLUME 79.5 fL (80-100); MONOCYTES PERCENT AUTO 13.6 % (2-8); NEUTROPHILS PERCENT AUTO 60.7 % (42.2-75.2); PLATELET COUNT,PLT 97 10^3/uL (150-450); RED BLOOD CELL COUNT 4.63 10^6/uL (4.6-6.2); WHITE BLOOD CELL COUNT,WBC 5.7 10^3/uL (5.0-10.0)
[2024-09-20 06:40] LABS: BLOOD UREA NITROGEN,BUN < 3 mg/dL (8-26); BUN/CREATININE RATIO 4.1 (No establ ref range); CHLORIDE,CL 108 mmol/L (98-107); CREATININE 0.73 mg/dL (0.51-1.19); EST CRCL DRUG DOSING (CG) 143.06 mL/min; ESTIMATED GFR 120 mL/min (>=60); GLUCOSE RANDOM 147 mg/dL (74-100); SODIUM,NA 142 mmol/L (138-146)
[2024-09-20 06:56] LABS: B-TYPE NATRIURETIC PEPTIDE,BNP 37 pg/ml (0-100)
[2024-09-20 06:57] LABS: PROTHROMBIN TIME 10.3 SEC (9.0-12.0); PTT,PARTIAL THROMBOPLSTIN TIME 23.6 SEC (22.0-34.0)
[2024-09-20 07:32] LABS: CALCIUM 0.99 mmol/l (1.15-1.33); CARBON DIOXIDE,CO2 24 mmol/L (23-30)
[2024-09-20 07:52] VITALS: BP 153/91; PULSE 123
[2024-09-20] MEDS: Ondansetron 4 MG Tab.DIS PO ONE (08:07)
[2024-09-20] MEDS: Potassium Chloride 10% 20 MEQ/15 ML Soln 15 ML UD Cup PO ONE (08:08)
[2024-09-20] MEDS: Ondansetron 4 MG/2 ML SDV IVPUSH ONE (08:08)
[2024-09-20 14:26] LABS: A/G RATIO 0.8; ALANINE AMINOTRANSFERASE,ALT 128 U/L (16-63); ALBUMIN 3.8 g/dL (3.4-5.0); ALKALINE PHOSPHATASE 108 U/L (46-116); ASPARTATE AMNIOTRANSFERASE,AST 204 U/L (15-37); BILIRUBIN TOTAL 0.7 mg/dL (0.2-1.0); ETHANOL BLOOD MEDICAL 222 mg/dL (0); MAGNESIUM 1.6 mg/dL (1.8-2.4); PROTEIN TOTAL,TP 8.7 g/dL (6.4-8.2)
== END 2024-09-20 08:31 | disposition home or self-care (01) ==
LOC: DL.ED 05:37
DX: R07.9 Chest pain, unspecified (principal); G89.29 Other chronic pain; I10 Essential (primary) hypertension; K21.9 Gastro-esophageal reflux disease without esophagitis; I25.2 Old myocardial infarction; E11.9 Type 2 diabetes mellitus without complications; Z88.8 Allergy status to other drugs, medicaments and biological substances; Z79.82 Long term (current) use of aspirin; Z79.899 Other long term (current) drug therapy
CPT/HCPCS: 36415; 71046; 80053; 80307; 83735; 83880; 84484; 85025; 85610; 85730; 93005; 99285; A9270; 93010; 99284

== ENCOUNTER 2024-09-29 19:13 | Emergency (ER) | payer MEDICAID ==
[2024-09-29] MEDS: Ondansetron 4 MG Tab.DIS PO ONE (19:28)
[2024-09-29] MEDS: LORazepam 1 MG Tab PO ONE (19:28)
[2024-09-29] MEDS: GI Cocktail Oral Solution 30 ML PO ONE (19:32)
[2024-09-29 19:49] LABS: BASOPHILS PERCENT AUTO 1.2 % (0.0-1.0); HEMATOCRIT 34.9 % (40.0-54.0); HEMOGLOBIN 11.3 g/dL (14.0-18.0); LYMPHOCYTES PERCENT AUTO 4.4 % (20.5-50.1); MEAN CORPUSCULAR HGB CONC 32.4 g/dL (33.0-35.0); MEAN CORPUSCULAR VOLUME 80.2 fL (80-100); MONOCYTES PERCENT AUTO 7.9 % (2-8); NEUTROPHILS PERCENT AUTO 86.5 % (42.2-75.2); PLATELET COUNT,PLT 82 10^3/uL (150-450); RED BLOOD CELL COUNT 4.35 10^6/uL (4.6-6.2); WHITE BLOOD CELL COUNT,WBC 9.9 10^3/uL (5.0-10.0)
[2024-09-29 20:10] LABS: A/G RATIO 0.9; ALANINE AMINOTRANSFERASE,ALT 119 U/L (16-63); ALBUMIN 4.1 g/dL (3.4-5.0); ALKALINE PHOSPHATASE 111 U/L (46-116); ANION GAP 19.1 mEq/L (7-13); ASPARTATE AMNIOTRANSFERASE,AST 245 U/L (15-37); BILIRUBIN TOTAL 2.1 mg/dL (0.2-1.0); BLOOD UREA NITROGEN,BUN 7 mg/dL (7-18); BUN/CREATININE RATIO 7.2 (No establ ref range); CALCIUM 9.2 mg/dL (8.5-10.1); CARBON DIOXIDE,CO2 22 mmol/L (21-32); CHLORIDE,CL 95 mmol/L (98-107); CREATININE 0.97 mg/dL (0.70-1.30); GLUCOSE RANDOM 128 mg/dL (70-99); LIPASE 101 U/L (16-77); MAGNESIUM 1.2 mg/dL (1.8-2.4); POTASSIUM,K 3.1 mmol/L (3.5-5.1); PROTEIN TOTAL,TP 8.8 g/dL (6.4-8.2); SODIUM,NA 133 mmol/L (136-145)
[2024-09-29 20:11] LABS: ESTIMATED GFR 103 mL/min (>=60)
[2024-09-29 20:12] LABS: ETHANOL BLOOD MEDICAL < 3 mg/dL (0)
[2024-09-29] MEDS: Potassium Chloride 10 MEQ Tab.ER PO ONE (21:17)
[2024-09-29] MEDS: Magnesium Sulfate 2 GM/50 mL 2 GM in Premix Bag 1 BAG IV ONE (21:18)
[2024-09-29] MEDS: Sodium Chloride 0.9% 1,000 ML IV ONE (21:18)
[2024-09-29 21:36] VITALS: BP 152/77; PULSE 117
[2024-09-29] MEDS: Thiamine 200 MG/2 ML MDV IVPUSH ONE (22:16)
== END 2024-09-29 22:14 | disposition home or self-care (01) ==
LOC: DL.ED 19:13
DX: K21.9 Gastro-esophageal reflux disease without esophagitis (principal); E87.6 Hypokalemia; R79.89 Other specified abnormal findings of blood chemistry; I10 Essential (primary) hypertension; I25.2 Old myocardial infarction; E11.9 Type 2 diabetes mellitus without complications; Z88.8 Allergy status to other drugs, medicaments and biological substances; Z79.82 Long term (current) use of aspirin; Z79.899 Other long term (current) drug therapy
CPT/HCPCS: 36415; 71045; 80053; 80307; 83690; 83735; 84484; 85025; 93005; 93010; 96365; 99284; 99285-25; A9270-GY; J3475; J7030

== ENCOUNTER 2024-10-19 21:10 | Emergency (ER) | payer MEDICAID ==
[2024-10-19] MEDS ORDERED: Sodium Chloride 0.9% 10 ML Syringe FLUSH PRN (21:21)
[2024-10-19] MEDS: Iopamidol 755 Mg/ML 100 ML Bottle IVPUSH ONE (21:54)
[2024-10-19 21:57] LABS: BASOPHILS PERCENT AUTO 1.6 % (0.0-1.0); EOSINOPHILS PERCENT AUTO 0.4 % (1.0-3.0); LYMPHOCYTES PERCENT AUTO 30.3 % (20.5-50.1); MONOCYTES PERCENT AUTO 9.5 % (2-8); NEUTROPHILS PERCENT AUTO 58.2 % (42.2-75.2); PLATELET COUNT,PLT 58 10^3/uL (150-450); RED BLOOD CELL COUNT 4.20 10^6/uL (4.6-6.2); WHITE BLOOD CELL COUNT,WBC 5.0 10^3/uL (5.0-10.0)
[2024-10-19 22:11] LABS: A/G RATIO 0.7; ALANINE AMINOTRANSFERASE,ALT 117.0 U/L (16-63); ASPARTATE AMNIOTRANSFERASE,AST 330.0 U/L (15-37); BILIRUBIN TOTAL 1.1 mg/dL (0.2-1.0); BLOOD UREA NITROGEN,BUN 4.0 mg/dL (7-18); CARBON DIOXIDE,CO2 25.0 mmol/L (21-32); CHLORIDE,CL 105.0 mmol/L (98-107); CREATININE 0.67 mg/dL (0.70-1.30); EST CRCL DRUG DOSING (CG) 155.87 mL/min; GLUCOSE RANDOM 120.0 mg/dL (70-99); POTASSIUM,K 2.9 mmol/L (3.5-5.1); PROTEIN TOTAL,TP 8.5 g/dL (6.4-8.2); SODIUM,NA 141.0 mmol/L (136-145)
[2024-10-19 22:12] LABS: ESTIMATED GFR 123.0 mL/min (>=60); ETHANOL BLOOD MEDICAL 362.0 mg/dL (0)
[2024-10-19 22:37] LABS: APPEARANCE,URINE CLEAR (CLEAR); GLUCOSE,URINE NEGATIVE (NEGATIVE); OCCULT BLOOD,URINE MODERATE (NEGATIVE)
[2024-10-19 22:44] LABS: AMPHETAMINES,URINE NEGATIVE (NEGATIVE); BARBITURATES,URINE NEGATIVE (NEGATIVE); MDMA (ECSTASY), URINE NEGATIVE (NEGATIVE); METHAMPHETAMINES,URINE NEGATIVE (NEGATIVE); OPIATES,URINE NEGATIVE (NEGATIVE); OXYCODONE,URINE NEGATIVE (NEGATIVE); PHENCYCLIDINE,URINE NEGATIVE (NEGATIVE); TCA,URINE NEGATIVE (NEGATIVE)
[2024-10-19 22:45] LABS: EPITHELIAL CELLS,URINE NOT SEEN /HPF (NOT SEEN)
[2024-10-19 22:56] VITALS: BP 118/87; PULSE 108
[2024-10-19] MEDS: Potassium Chloride 10 MEQ Tab.ER PO ONE (23:41)
[2024-10-20] MEDS: Take Home: Potassium Chloride 10 MEQ Tab, 10 Tab Pack PO ONE (00:01)
[2024-10-20] MEDS: Ketorolac 30 MG/ML SDV IVPUSH ONE (00:01)
== END 2024-10-20 00:42 | disposition home or self-care (01) ==
LOC: DL.ED 21:10
DX: S00.03XA Contusion of scalp, initial encounter (principal); S70.11XA Contusion of right thigh, initial encounter; F10.121 Alcohol abuse with intoxication delirium; Z88.8 Allergy status to other drugs, medicaments and biological substances; I10 Essential (primary) hypertension; I25.2 Old myocardial infarction; E11.9 Type 2 diabetes mellitus without complications; F17.200 Nicotine dependence, unspecified, uncomplicated; Z79.82 Long term (current) use of aspirin; Z79.899 Other long term (current) drug therapy; Y00.XXXA Assault by blunt object, initial encounter; Y92.009 Unspecified place in unspecified non-institutional (private) residence as the place of occurrence of the external cause
CPT/HCPCS: 36415; 70450; 71260; 72125; 73700; 74177; 80053; 80305; 80307; 81001; 83735; 85025; 96374; 99285; A9270; J1885; Q9967

== ENCOUNTER 2024-10-23 12:17 | Emergency (ER) | payer MEDICAID ==
[2024-10-23 12:27] VITALS: BP 124/88; PULSE 114
== END 2024-10-23 13:19 | disposition home or self-care (01) ==
LOC: DL.ED 12:17
DX: R07.89 Other chest pain (principal); I10 Essential (primary) hypertension; E11.9 Type 2 diabetes mellitus without complications; I25.2 Old myocardial infarction; F17.210 Nicotine dependence, cigarettes, uncomplicated; Z88.8 Allergy status to other drugs, medicaments and biological substances; Z79.82 Long term (current) use of aspirin; Z79.899 Other long term (current) drug therapy
CPT/HCPCS: 71045; 93005; 93010; 99284; 99285

== ENCOUNTER 2025-01-17 02:54 | Emergency (ER) | payer MEDICAID ==
[2025-01-17] MEDS ORDERED: Sodium Chloride 0.9% 10 ML Syringe FLUSH PRN (03:15)
[2025-01-17 03:30] LABS: PLATELET COUNT,PLT 187 10^3/uL (150-450); RED BLOOD CELL COUNT 4.69 10^6/uL (4.6-6.2); WHITE BLOOD CELL COUNT,WBC 5.9 10^3/uL (5.0-10.0)
[2025-01-17 03:40] LABS: BASOPHILS PERCENT AUTO 1.9 % (0.0-1.0); EOSINOPHILS PERCENT AUTO 3.2 % (1.0-3.0); LYMPHOCYTES PERCENT AUTO 31.1 % (20.5-50.1); MONOCYTES PERCENT AUTO 8.7 % (2-8); NEUTROPHILS PERCENT AUTO 55.1 % (42.2-75.2)
[2025-01-17 03:56] LABS: A/G RATIO 0.7; ALANINE AMINOTRANSFERASE,ALT 193.0 U/L (16-63); ASPARTATE AMNIOTRANSFERASE,AST 262.0 U/L (15-37); BILIRUBIN TOTAL 0.8 mg/dL (0.2-1.0); BLOOD UREA NITROGEN,BUN 7.0 mg/dL (7-18); CARBON DIOXIDE,CO2 26.0 mmol/L (21-32); CHLORIDE,CL 105.0 mmol/L (98-107); CREATININE 0.57 mg/dL (0.70-1.30); EST CRCL DRUG DOSING (CG) 187.15 mL/min; GLUCOSE RANDOM 122.0 mg/dL (70-99); POTASSIUM,K 3.2 mmol/L (3.5-5.1); PROTEIN TOTAL,TP 8.9 g/dL (6.4-8.2); SODIUM,NA 143.0 mmol/L (136-145)
[2025-01-17 03:58] LABS: ESTIMATED GFR 129.0 mL/min (>=60)
[2025-01-17 04:05] LABS: BASOPHILS PERCENT MAN 1; EOSINOPHILS PERCENT MAN 3 % (1-3); LYMPHOCYTES PERCENT MAN 29 % (20-50); MONOCYTES PERCENT MAN 7 % (2-8); SEG NEUTROPHILS PERCENT MAN 60 % (42-75)
[2025-01-17] MEDS: Iopamidol 755 Mg/ML 100 ML Bottle IVPUSH ONE (04:52)
[2025-01-17] MEDS: Ketorolac 30 MG/ML SDV IVPUSH ONE (07:08)
[2025-01-17] MEDS: Potassium Chloride 10% 20 MEQ/15 ML Soln 15 ML UD Cup PO ONE (07:10)
[2025-01-17 08:16] VITALS: BP 120/76; PULSE 75
== END 2025-01-17 08:10 | disposition home or self-care (01) ==
LOC: DL.ED 02:54
DX: S20.211A Contusion of right front wall of thorax, initial encounter (principal); S30.11XA Contusion of abdominal wall, initial encounter; I10 Essential (primary) hypertension; I25.2 Old myocardial infarction; E11.9 Type 2 diabetes mellitus without complications; F10.120 Alcohol abuse with intoxication, uncomplicated; Z88.8 Allergy status to other drugs, medicaments and biological substances; Z88.6 Allergy status to analgesic agent; Z79.899 Other long term (current) drug therapy; Y04.8XXA Assault by other bodily force, initial encounter; Y93.89 Activity, other specified
CPT/HCPCS: 36415; 70450; 71260; 72125; 74177; 80053; 80307; 83735; 85025; 96361; 96374; 99284; A9270; J1885; J7030; Q9967

== ENCOUNTER 2025-02-16 06:32 | Emergency (ER) | payer MEDICAID ==
[2025-02-16] MEDS ORDERED: Sodium Chloride 0.9% 10 ML Syringe FLUSH PRN ×2 (06:43)
[2025-02-16 06:47] LABS: BASOPHILS PERCENT AUTO 1.9 % (0.0-1.0); EOSINOPHILS PERCENT AUTO 0.6 % (1.0-3.0); LYMPHOCYTES PERCENT AUTO 19.0 % (20.5-50.1); MONOCYTES PERCENT AUTO 14.3 % (2-8); NEUTROPHILS PERCENT AUTO 64.2 % (42.2-75.2); PLATELET COUNT,PLT 103 10^3/uL (150-450); RED BLOOD CELL COUNT 4.23 10^6/uL (4.6-6.2); WHITE BLOOD CELL COUNT,WBC 5.4 10^3/uL (5.0-10.0)
[2025-02-16] MEDS: Ondansetron 4 MG/2 ML SDV IVPUSH ONE (06:52)
[2025-02-16 06:59] LABS: INR 1.0 (0.9-1.2)
[2025-02-16 07:07] LABS: A/G RATIO 0.8; ALANINE AMINOTRANSFERASE,ALT 148.0 U/L (16-63); ASPARTATE AMNIOTRANSFERASE,AST 311.0 U/L (15-37); BILIRUBIN TOTAL 1.2 mg/dL (0.2-1.0); BLOOD UREA NITROGEN,BUN 5.0 mg/dL (7-18); CARBON DIOXIDE,CO2 24.0 mmol/L (21-32); CHLORIDE,CL 99.0 mmol/L (98-107); CREATININE 0.59 mg/dL (0.70-1.30); EST CRCL DRUG DOSING (CG) 175.28 mL/min; GLUCOSE RANDOM 134.0 mg/dL (70-99); POTASSIUM,K 2.7 mmol/L (3.5-5.1); PROTEIN TOTAL,TP 8.3 g/dL (6.4-8.2); SODIUM,NA 138.0 mmol/L (136-145)
[2025-02-16 07:10] LABS: ESTIMATED GFR 127.0 mL/min (>=60)
[2025-02-16 11:37] VITALS: BP 119/73; PULSE 122
== END 2025-02-16 11:35 | disposition home or self-care (01) ==
LOC: DL.ED 06:32
DX: R07.2 Precordial pain (principal); I10 Essential (primary) hypertension; J45.909 Unspecified asthma, uncomplicated; K21.9 Gastro-esophageal reflux disease without esophagitis; E11.9 Type 2 diabetes mellitus without complications; E86.0 Dehydration; F10.139 Alcohol abuse with withdrawal, unspecified; G40.509 Epileptic seizures related to external causes, not intractable, without status epilepticus; Z88.8 Allergy status to other drugs, medicaments and biological substances; Z79.82 Long term (current) use of aspirin; Z79.899 Other long term (current) drug therapy; Y90.0 Blood alcohol level of less than 20 mg/100 ml
CPT/HCPCS: 36415; 70450; 71045; 80053; 80307; 84484; 85025; 85610; 93005; 93010; 96361; 96374; 96375; 99284; 99285-25; A9270-GY; J2405; J3360; J7030

== ENCOUNTER 2025-02-20 20:34 | Emergency (ER) | payer MEDICAID ==
[2025-02-20] MEDS ORDERED: Sodium Chloride 0.9% 10 ML Syringe FLUSH PRN (20:47)
[2025-02-20] MEDS: MVI, Adult with Vitamin K 10 ML, Folic Acid 1 MG, Thiamine 100 MG in Lactated Ringers 1... IV ONE (20:58)
[2025-02-20] MEDS: Ondansetron 4 MG/2 ML SDV IVPUSH ONE (20:58)
[2025-02-20 21:04] LABS: AMPHETAMINES,URINE NEGATIVE (NEGATIVE); BARBITURATES,URINE NEGATIVE (NEGATIVE); MDMA (ECSTASY), URINE NEGATIVE (NEGATIVE); METHAMPHETAMINES,URINE NEGATIVE (NEGATIVE); OPIATES,URINE NEGATIVE (NEGATIVE); OXYCODONE,URINE NEGATIVE (NEGATIVE); PHENCYCLIDINE,URINE NEGATIVE (NEGATIVE); TCA,URINE NEGATIVE (NEGATIVE)
[2025-02-20 21:14] LABS: BASOPHILS PERCENT AUTO 1.4 % (0.0-1.0); EOSINOPHILS PERCENT AUTO 0.2 % (1.0-3.0); LYMPHOCYTES PERCENT AUTO 14.5 % (20.5-50.1); MONOCYTES PERCENT AUTO 9.3 % (2-8); NEUTROPHILS PERCENT AUTO 74.6 % (42.2-75.2); PLATELET COUNT,PLT 136 10^3/uL (150-450); RED BLOOD CELL COUNT 4.03 10^6/uL (4.6-6.2); WHITE BLOOD CELL COUNT,WBC 6.5 10^3/uL (5.0-10.0)
[2025-02-20] MEDS: Ketorolac 30 MG/ML SDV IVPUSH ONE (21:20)
[2025-02-20 21:30] LABS: INR 0.9 (0.9-1.2); PTT,PARTIAL THROMBOPLSTIN TIME 22.9 SEC (22.0-34.0)
[2025-02-20 21:35] LABS: LACTIC ACID 1.5 mmol/L (0.4-2.0)
[2025-02-20 21:42] LABS: A/G RATIO 0.7; ALANINE AMINOTRANSFERASE,ALT 219.0 U/L (16-63); ASPARTATE AMNIOTRANSFERASE,AST 410.0 U/L (15-37); BILIRUBIN TOTAL 0.8 mg/dL (0.2-1.0); BLOOD UREA NITROGEN,BUN 8.0 mg/dL (7-18); CARBON DIOXIDE,CO2 23.0 mmol/L (21-32); CHLORIDE,CL 104.0 mmol/L (98-107); CREATININE 0.59 mg/dL (0.70-1.30); EST CRCL DRUG DOSING (CG) 175.28 mL/min; ESTIMATED GFR 127.0 mL/min (>=60); ETHANOL BLOOD MEDICAL 56.0 mg/dL (0); GLUCOSE RANDOM 133.0 mg/dL (70-99); POTASSIUM,K 2.8 mmol/L (3.5-5.1); PROTEIN TOTAL,TP 9.3 g/dL (6.4-8.2); SODIUM,NA 141.0 mmol/L (136-145)
[2025-02-20 21:43] VITALS: BP 164/90; PULSE 135
[2025-02-20] MEDS: Take Home: Potassium Chloride 10 MEQ Tab, 10 Tab Pack PO ONE (21:52)
[2025-02-20] MEDS: Potassium Chloride 10 MEQ Tab.ER PO ONE (21:52)
== END 2025-02-20 21:58 | disposition home or self-care (01) ==
LOC: DL.ED 20:34
DX: R07.89 Other chest pain (principal); E87.6 Hypokalemia; F10.10 Alcohol abuse, uncomplicated; I10 Essential (primary) hypertension; I25.2 Old myocardial infarction; E11.9 Type 2 diabetes mellitus without complications; Z86.16 Personal history of COVID-19; Y90.2 Blood alcohol level of 40-59 mg/100 ml; Z79.899 Other long term (current) drug therapy; Z79.82 Long term (current) use of aspirin; Z88.8 Allergy status to other drugs, medicaments and biological substances
CPT/HCPCS: 36415; 80053; 80305; 80307; 83605; 83690; 83735; 84484; 85025; 85610; 85730; 93005; 96365; 96375; 99285; A9270; J1808; J1885; J2405; J3411; J7120; J3490

== ENCOUNTER 2025-02-28 10:11 | Emergency (ER) | payer MEDICAID ==
[2025-02-28 10:25] VITALS: BP 155/85; PULSE 127
== END 2025-02-28 10:35 | disposition home or self-care (01) ==
LOC: DL.ED 10:11
DX: J20.9 Acute bronchitis, unspecified (principal); I10 Essential (primary) hypertension; I25.2 Old myocardial infarction; E11.9 Type 2 diabetes mellitus without complications; Z88.8 Allergy status to other drugs, medicaments and biological substances; Z79.899 Other long term (current) drug therapy
CPT/HCPCS: 99283; J8540

== ENCOUNTER 2025-03-19 20:21 | Emergency (ER) | payer MEDICAID ==
[2025-03-19] MEDS: GI Cocktail Oral Solution 30 ML PO ONE (20:34)
[2025-03-19 21:05] VITALS: BP 116/81; PULSE 95
== END 2025-03-19 21:02 | disposition home or self-care (01) ==
LOC: DL.ED 20:21
DX: K21.9 Gastro-esophageal reflux disease without esophagitis (principal); I10 Essential (primary) hypertension; I25.2 Old myocardial infarction; E11.9 Type 2 diabetes mellitus without complications; Z79.899 Other long term (current) drug therapy; Z88.8 Allergy status to other drugs, medicaments and biological substances; Z86.16 Personal history of COVID-19
CPT/HCPCS: 93010; 99284; A9270-GY

== ENCOUNTER 2025-03-24 15:20 | Emergency (ER) | payer MEDICAID ==
[~2025-03-24 15:20] MED LIST changes: -Midazolam 50 MG in Sodium Chloride 0.9% 40 ML IV SCH; +Sodium Chloride 0.9% 10 ML Syringe FLUSH PRN; -fentaNYL 500 MCG in Sodium Chloride 0.9% 50 ML IV SCH
[2025-03-24] MEDS: Ketorolac 30 MG/ML SDV IVPUSH ONE (15:30)
[2025-03-24 15:32] LABS: BASOPHILS PERCENT AUTO 2.2 % (0.0-1.0); EOSINOPHILS PERCENT AUTO 0.3 % (1.0-3.0); LYMPHOCYTES PERCENT AUTO 12.9 % (20.5-50.1); MONOCYTES PERCENT AUTO 8.5 % (2-8); NEUTROPHILS PERCENT AUTO 76.1 % (42.2-75.2); PLATELET COUNT,PLT 108 10^3/uL (150-450); RED BLOOD CELL COUNT 4.06 10^6/uL (4.6-6.2); WHITE BLOOD CELL COUNT,WBC 6.7 10^3/uL (5.0-10.0)
[2025-03-24] MEDS: Ondansetron 4 MG/2 ML SDV IVPUSH ONE (15:46)
[2025-03-24 15:50] LABS: B-TYPE NATRIURETIC PEPTIDE,BNP 99 pg/ml (0-100)
[2025-03-24 15:53] LABS: A/G RATIO 0.8; ALANINE AMINOTRANSFERASE,ALT 104 U/L (16-63); ASPARTATE AMNIOTRANSFERASE,AST 221 U/L (15-37); BILIRUBIN TOTAL 1.8 mg/dL (0.2-1.0); BLOOD UREA NITROGEN,BUN 7 mg/dL (7-18); CARBON DIOXIDE,CO2 22 mmol/L (21-32); CHLORIDE,CL 96 mmol/L (98-107); CREATININE 0.96 mg/dL (0.70-1.30); GLUCOSE RANDOM 147 mg/dL (70-99); POTASSIUM,K 2.9 mmol/L (3.5-5.1); PROTEIN TOTAL,TP 8.8 g/dL (6.4-8.2); SODIUM,NA 135 mmol/L (136-145)
[2025-03-24 15:55] LABS: ESTIMATED GFR 104 mL/min (>=60); ETHANOL BLOOD MEDICAL < 3 mg/dL (0)
[2025-03-24] MEDS: Potassium Chloride 10 MEQ Tab.ER PO ONE (15:59)
[2025-03-24] MEDS: Magnesium Sulfate 2 GM/50 mL 2 GM in Premix Bag 1 BAG IV ONE (15:59)
[2025-03-24 16:00] LABS: LACTIC ACID 3.1 mmol/L (0.4-2.0)
[2025-03-24 16:18] VITALS: BP 146/91; PULSE 120
== END 2025-03-24 16:14 | disposition home or self-care (01) ==
LOC: DL.ED 15:20
DX: J06.9 Acute upper respiratory infection, unspecified (principal); E87.6 Hypokalemia; E83.42 Hypomagnesemia; I10 Essential (primary) hypertension; I25.2 Old myocardial infarction; J45.909 Unspecified asthma, uncomplicated; K21.9 Gastro-esophageal reflux disease without esophagitis; E11.9 Type 2 diabetes mellitus without complications; Z86.16 Personal history of COVID-19; Z88.8 Allergy status to other drugs, medicaments and biological substances; Z79.899 Other long term (current) drug therapy
CPT/HCPCS: 36415; 71046; 80053; 80307; 83605; 83735; 83880; 85025; 86140; 87428-QW; 96374; 96375; 99284; 99285-25; A9270-GY; J1885; J2405; J3475; J7030

== ENCOUNTER 2025-04-15 20:59 | Emergency (ER) | payer MEDICAID ==
[2025-04-15] MEDS ORDERED: Sodium Chloride 0.9% 10 ML Syringe FLUSH PRN (21:16)
[2025-04-15 21:20] LABS: BASOPHILS PERCENT AUTO 1.0 % (0.0-1.0); EOSINOPHILS PERCENT AUTO 0.6 % (1.0-3.0); LYMPHOCYTES PERCENT AUTO 17.9 % (20.5-50.1); MONOCYTES PERCENT AUTO 16.6 % (2-8); NEUTROPHILS PERCENT AUTO 63.9 % (42.2-75.2); PLATELET COUNT,PLT 274 10^3/uL (150-450); RED BLOOD CELL COUNT 3.75 10^6/uL (4.6-6.2); WHITE BLOOD CELL COUNT,WBC 9.7 10^3/uL (5.0-10.0)
[2025-04-15 21:33] LABS: INR 1.0 (0.9-1.2); PTT,PARTIAL THROMBOPLSTIN TIME 24.1 SEC (22.0-34.0)
[2025-04-15 21:37] LABS: LACTIC ACID 1.5 mmol/L (0.4-2.0)
[2025-04-15 21:41] LABS: A/G RATIO 0.6; ALANINE AMINOTRANSFERASE,ALT 156.0 U/L (16-63); ASPARTATE AMNIOTRANSFERASE,AST 265.0 U/L (15-37); BILIRUBIN TOTAL 1.1 mg/dL (0.2-1.0); BLOOD UREA NITROGEN,BUN 10.0 mg/dL (7-18); CARBON DIOXIDE,CO2 20.0 mmol/L (21-32); CHLORIDE,CL 102.0 mmol/L (98-107); CREATININE 0.85 mg/dL (0.70-1.30); EST CRCL DRUG DOSING (CG) 121.67 mL/min; ESTIMATED GFR 114.0 mL/min (>=60); ETHANOL BLOOD MEDICAL 397.0 mg/dL (0); GLUCOSE RANDOM 120.0 mg/dL (70-99); POTASSIUM,K 3.2 mmol/L (3.5-5.1); PROTEIN TOTAL,TP 8.9 g/dL (6.4-8.2); SODIUM,NA 136.0 mmol/L (136-145)
[2025-04-15] MEDS: MVI, Adult with Vitamin K 10 ML, Folic Acid 1 MG, Thiamine 100 MG in Lactated Ringers 1... IV ONE (21:56)
[2025-04-15] MEDS: Bacitracin Oint 1 GM U/D Packet TOP ONE (22:03)
[2025-04-15] MEDS: Potassium Chloride 10 MEQ Tab.ER PO ONE (22:40)
[2025-04-15 22:41] VITALS: BP 124/80; PULSE 88
== END 2025-04-15 23:00 | disposition home or self-care (01) ==
LOC: DL.ED 20:59
DX: S01.111A Laceration without foreign body of right eyelid and periocular area, initial encounter (principal); F10.120 Alcohol abuse with intoxication, uncomplicated; I10 Essential (primary) hypertension; I25.2 Old myocardial infarction; K21.9 Gastro-esophageal reflux disease without esophagitis; E11.9 Type 2 diabetes mellitus without complications; Z88.8 Allergy status to other drugs, medicaments and biological substances; Z79.899 Other long term (current) drug therapy; Z86.16 Personal history of COVID-19; Y90.9 Presence of alcohol in blood, level not specified; W18.39XA Other fall on same level, initial encounter; Y93.89 Activity, other specified
CPT/HCPCS: 12013; 36415; 70450; 72125; 80053; 80307; 83605; 83735; 85025; 85610; 85730; 96365; 99283; 99284; A9270; J1808; J2003; J3411; J7120; J3490